=== PATIENT | male | born 1955 | race Caucasian/White ===

== ENCOUNTER 2018-04-14 03:39 | Outpatient (RCR) | payer MEDICARE, SELFPAY ==
[2018-04-14] MEDS: Normal Saline Flush 10 ML SYR IVP (10:25)
[2018-04-14 10:36] LABS: Abs Immature Grans 0.86 k/cumm (0.0-0.09); HCT 25.8 % (40.0-50.0); HGB 8.1 g/dL (13.5-17.5); Mean Corp. HGB Concentration 31.4 g/dL (32.0-36.0); Mean Corpuscular Hemoglobin 28.6 pg (27.0-33.0); Mean Corpuscular Volume 91.2 fL (80-95); Mean Platelet Volume 10.8 fL (8.0-11.0); Platelet Count 100 x1000/uL (130-400); RBC 2.83 m/cumm (4.50-6.00); RBC Distribution Width 17.8 % (11.8-14.1); White Blood Cell Count 9.85 k/cumm (4.4-10.8)
[2018-04-14 10:53] LABS: ALT 13 U/L (12-78); AST 16 U/L (15-37); Albumin 2.7 g/dL (3.4-5.0); Alkaline Phosphatase 143 U/L (46-116); Anion Gap 4.8 mmol/L (3-11); BUN 8 mg/dL (7-18); Bilirubin, Total 0.3 mg/dL (0.2-1.0); CO2 27.2 mmol/L (21.0-32.0); CREATININE 0.94 mg/dL (0.70-1.30); Calcium 8.4 mg/dL (8.5-10.1); Chloride 103 mmol/L (98-107); Glucose 104 mg/dL (70-100); Potassium 4.1 mmol/L (3.5-5.1); Sodium 135 mmol/L (136-145); Total Protein 5.8 g/dL (6.4-8.2)
[2018-04-14 11:06] LABS: Absolute Lymphocyte Count 1.18 k/cumm (1.2-3.4); Absolute Monocyte Count 0.99 k/cumm (0.11-0.7); Absolute Neutrophil Count 6.99 k/cumm (1.2-6.7); Atypical Lymphocytes % 0; Nucleated RBC 1 /100WBC
[2018-04-14 11:07] LABS: Diff Comment Manual Differential; Microcytosis 1+; Polychromasia Present
[2018-04-17] MEDS: Heparin 500 UNITS/5 ML SYRINGE IV (10:30)
[2018-04-17] MEDS: Normal Saline Flush 10 ML SYR IVP (10:30)
[2018-04-17 10:36] VITALS: BP 97/53; PULSE 46; RESP 18; TEMP 36.5
[2018-04-17 10:55] VITALS: BP 92/51; PULSE 48; RESP 17; TEMP 36
[2018-04-17 11:10] VITALS: BP 90/50; PULSE 43; RESP 18; TEMP 36
[2018-04-17 11:40] VITALS: BP 94/55; PULSE 43; RESP 18; TEMP 36.1
[2018-04-17 12:40] VITALS: BP 103/64; PULSE 41; RESP 18; TEMP 36.5
[2018-04-17 13:30] VITALS: BP 109/66; PULSE 38; RESP 18; TEMP 36.5
[2018-04-28 12:54] LABS: Abs Immature Grans 1.26 k/cumm (0.0-0.09); Absolute Basophil Count 0.12 k/cumm (0.0-0.2); Absolute Eosinophil Count 0.12 k/cumm (0.0-0.7); HCT 31.1 % (40.0-50.0); HGB 10.1 g/dL (13.5-17.5); Mean Corp. HGB Concentration 32.5 g/dL (32.0-36.0); Mean Corpuscular Hemoglobin 29.4 pg (27.0-33.0); Mean Corpuscular Volume 90.4 fL (80-95); Mean Platelet Volume 10.7 fL (8.0-11.0); RBC 3.44 m/cumm (4.50-6.00); RBC Distribution Width 17.6 % (11.8-14.1); White Blood Cell Count 11.57 k/cumm (4.4-10.8)
[2018-04-28 13:14] LABS: ALT 14 U/L (12-78); AST 21 U/L (15-37); Albumin 2.9 g/dL (3.4-5.0); Alkaline Phosphatase 171 U/L (46-116); Anion Gap 6.9 mmol/L (3-11); BUN 9 mg/dL (7-18); Bilirubin, Total 0.3 mg/dL (0.2-1.0); CO2 27.1 mmol/L (21.0-32.0); CREATININE 0.94 mg/dL (0.70-1.30); Calcium 8.7 mg/dL (8.5-10.1); Chloride 104 mmol/L (98-107); Glucose 90 mg/dL (70-100); Potassium 4.3 mmol/L (3.5-5.1); Sodium 138 mmol/L (136-145); Total Protein 6.4 g/dL (6.4-8.2)
[2018-04-28 13:50] LABS: Absolute Lymphocyte Count 0.58 k/cumm (1.2-3.4); Absolute Monocyte Count 0.93 k/cumm (0.11-0.7); Absolute Neutrophil Count 9.02 k/cumm (1.2-6.7); Platelet Count 112 x1000/uL (130-400)
[2018-04-28 13:52] LABS: Microcytosis 1+; Polychromasia Present
== END 2018-05-12 ==
LOC: INF 04-17 01:33
PROVIDERS: PCP Internal Medicine; Visit Provider Nurse Practitioner Adult Health
DX: D64.9 Anemia, unspecified (principal); C20 Malignant neoplasm of rectum
CPT/HCPCS: 36430; 36591; P9016; 36415; 80053; 86850; 86900; 86901; 86920; 85025

== ENCOUNTER 2018-05-26 00:12 | Outpatient (CLI) | payer MEDICARE, SELFPAY ==
--- NOTE | 2018-05-26 09:09 | DI.CT_ITS ---
SYMPTOM/DIAGNOSIS: SIGMOID RECTAL CA, C20, NOW COMPLETED TREATMENT, RESTAGING EXAM CHEST, ABDOMEN AND PELVIC CT: Comparison is made with 10/11/17. Images were performed from the clavicles through the ischial tuberosities after IV and without oral contrast. The patient refused oral contrast. CHEST: A port is seen over the right pectoral muscle with the tip in the lower SVC. The heart size is normal. There is no adenopathy, pleural or pericardial effusions seen. No pulmonary nodules or infiltrates are seen. The tracheobronchial tree is unremarkable. The pulmonary arteries are well opacified with IV contrast and no pulmonary emboli are seen. Degenerative changes are seen in the spine. No lytic or blastic bony lesions are identified. ABDOMEN AND PELVIS: The liver, spleen, adrenals and pancreas are unremarkable. The gallbladder is contracted. There is a right lower quadrant urostomy. There is no hydronephrosis. The previously noted ureteral stents have been removed. There is a left lower quadrant colostomy. There is a large quantity of stool. There is no bowel dilatation or wall thickening. The appendix appears normal. The patient is status post resection of the rectosigmoid and bladder. No pelvic mass or adenopathy is seen. There are degenerative and post surgical changes in the spine. The aorta and iliac arteries show atherosclerotic changes. IMPRESSION: No evidence of recurrent disease or metastatic disease.
[2018-05-26] MEDS: Omnipaque 350 MG/ML 100 ML BTL IJ (10:54)
== END 2018-05-26 00:32 ==
PROVIDERS: PCP Internal Medicine; Visit Provider Nurse Practitioner Adult Health
DX: Z48.3 Aftercare following surgery for neoplasm (principal); C20 Malignant neoplasm of rectum; Z12.89 Encounter for screening for malignant neoplasm of other sites; Z93.3 Colostomy status; Z93.6 Other artificial openings of urinary tract status
CPT/HCPCS: 74177; 71260; J3490

== ENCOUNTER 2018-05-26 07:57 | Outpatient (RCR) | payer MEDICARE, SELFPAY ==
[2018-05-26] MEDS: Normal Saline Flush 10 ML SYR IVP (08:15)
[2018-05-26 08:30] LABS: Abs Immature Grans 0.01 k/cumm (0.0-0.09); Absolute Basophil Count 0.04 k/cumm (0.0-0.2); Absolute Eosinophil Count 0.66 k/cumm (0.0-0.7); Absolute Lymphocyte Count 0.45 k/cumm (1.2-3.4); Absolute Neutrophil Count 3.47 k/cumm (1.2-6.7); Basophils % 0.8; Eosinophils % 12.6; HCT 32.5 % (40.0-50.0); HGB 10.3 g/dL (13.5-17.5); Immature Grans % 0.2; Lymphocytes % 8.6; Mean Corp. HGB Concentration 31.7 g/dL (32.0-36.0); Mean Corpuscular Hemoglobin 29.5 pg (27.0-33.0); Mean Corpuscular Volume 93.1 fL (80-95); Mean Platelet Volume 9.5 fL (8.0-11.0); Monocytes % 11.5; Neutrophils % 66.3; Platelet Count 202 x1000/uL (130-400); RBC 3.49 m/cumm (4.50-6.00); RBC Distribution Width 16.9 % (11.8-14.1); White Blood Cell Count 5.23 k/cumm (4.4-10.8)
[2018-05-26 08:42] LABS: ALT 15 U/L (12-78); AST 17 U/L (15-37); Albumin 2.9 g/dL (3.4-5.0); Alkaline Phosphatase 132 U/L (46-116); Anion Gap 8.7 mmol/L (3-11); BUN 12 mg/dL (7-18); Bilirubin, Total 0.2 mg/dL (0.2-1.0); CO2 27.3 mmol/L (21.0-32.0); CREATININE 0.81 mg/dL (0.70-1.30); Calcium 8.3 mg/dL (8.5-10.1); Chloride 105 mmol/L (98-107); Glucose 115 mg/dL (70-100); Potassium 3.8 mmol/L (3.5-5.1); Sodium 141 mmol/L (136-145)
== END 2018-06-11 23:59 | disposition home or self-care (01) ==
LOC: INF 07:57
PROVIDERS: PCP Internal Medicine; Visit Provider Nurse Practitioner Adult Health
DX: C20 Malignant neoplasm of rectum (principal)
CPT/HCPCS: 36591; 74177; 80053; 71260; 85025; J3490

== ENCOUNTER 2018-09-07 02:07 | Outpatient (RCR) | payer MEDICARE, SELFPAY ==
[2018-09-07] MEDS: Normal Saline Flush 10 ML SYR IVP (14:16)
[2018-09-07] MEDS: Heparin 500 UNITS/5 ML SYRINGE IV (14:17)
[2018-09-07 14:26] LABS: Abs Immature Grans 0.01 k/cumm (0.0-0.09); Absolute Basophil Count 0.03 k/cumm (0.0-0.2); Absolute Eosinophil Count 0.54 k/cumm (0.0-0.7); Absolute Lymphocyte Count 1.23 k/cumm (1.2-3.4); Absolute Monocyte Count 0.43 k/cumm (0.11-0.7); Absolute Neutrophil Count 3.68 k/cumm (1.2-6.7); Basophils % 0.5; Eosinophils % 9.1; HCT 36.1 % (40.0-50.0); HGB 12.2 g/dL (13.5-17.5); Immature Grans % 0.2; Lymphocytes % 20.8; Mean Corp. HGB Concentration 33.8 g/dL (32.0-36.0); Mean Corpuscular Hemoglobin 29.6 pg (27.0-33.0); Mean Corpuscular Volume 87.6 fL (80-95); Monocytes % 7.3; Neutrophils % 62.1; Platelet Count 208 x1000/uL (130-400); RBC 4.12 m/cumm (4.50-6.00); RBC Distribution Width 13.8 % (11.8-14.1); White Blood Cell Count 5.92 k/cumm (4.4-10.8)
[2018-09-07 14:34] LABS: ALT 16 U/L (12-78); AST 17 U/L (15-37); Albumin 3.4 g/dL (3.4-5.0); Alkaline Phosphatase 114 U/L (46-116); Anion Gap 7.9 mmol/L (3-11); BUN 13 mg/dL (7-18); Bilirubin, Total 0.3 mg/dL (0.2-1.0); CO2 26.1 mmol/L (21.0-32.0); Calcium 8.7 mg/dL (8.5-10.1); Chloride 103 mmol/L (98-107); Glucose 105 mg/dL (70-100); Sodium 137 mmol/L (136-145); Total Protein 6.6 g/dL (6.4-8.2)
[2018-09-11 09:09] LABS: CEA 1.1 ng/ml
== END 2018-09-11 23:59 | disposition home or self-care (01) ==
LOC: INF 02:07
PROVIDERS: PCP Internal Medicine; Visit Provider Nurse Practitioner Adult Health
DX: C20 Malignant neoplasm of rectum (principal); Z45.2 Encounter for adjustment and management of vascular access device
CPT/HCPCS: 36591; 80053; 82378; 85025

== ENCOUNTER 2018-12-04 00:42 | Outpatient (CLI) | payer MEDICARE, SELFPAY ==
[2018-12-04] MEDS: Omnipaque 350 MG/ML 100 ML BTL IJ (10:43)
--- NOTE | 2018-12-04 10:47 | DI.CT_ITS ---
SYMPTOM/DIAGNOSIS: RECTAL CA, C20, S/P TREATMENT, RESTAGING EXAM CHEST/ABDOMEN/PELVIC CT: Comparison is made with 05/26/18. CHEST: No pulmonary nodules, adenopathy, pleural or pericardial effusions are seen. There are no infiltrates. The heart size is normal. No pulmonary emboli or aortic dissection is seen. No lytic or blastic bony lesions are identified. IMPRESSION: No evidence of metastatic disease in the chest. ABDOMEN AND PELVIS: A left sided colostomy is again noted. The rectosigmoid has been resected. Suture material is seen at the transverse colon. A right sided urostomy is again noted. There is no evidence of hydronephrosis. No recurrent mass, adenopathy or free fluid is seen. There is a moderate quantity of stool. The liver, gallbladder, spleen and adrenals are unremarkable. The pancreas is again noted to be somewhat atrophic. No suspicious bony lesions are identified. IMPRESSION: No evidence of recurrent or metastatic disease.
== END 2018-12-04 01:02 ==
PROVIDERS: PCP Internal Medicine; Visit Provider Internal Medicine Hematology & Oncology
DX: C20 Malignant neoplasm of rectum (principal); Z92.21 Personal history of antineoplastic chemotherapy; Z93.3 Colostomy status; Z12.89 Encounter for screening for malignant neoplasm of other sites; Z93.6 Other artificial openings of urinary tract status
CPT/HCPCS: 74177; 71260; J3490

== ENCOUNTER 2018-12-04 01:31 | Outpatient (RCR) | payer MEDICARE, SELFPAY ==
[2018-12-04] MEDS: Normal Saline Flush 10 ML SYR IVP (08:55)
[2018-12-04] MEDS: Heparin 500 UNITS/5 ML SYRINGE IV (09:20)
[2018-12-04 09:22] LABS: Abs Immature Grans 0.02 k/cumm (0.0-0.09); Absolute Basophil Count 0.03 k/cumm (0.0-0.2); Absolute Eosinophil Count 0.66 k/cumm (0.0-0.7); Absolute Neutrophil Count 3.25 k/cumm (1.2-6.7); Basophils % 0.5; Eosinophils % 11.7; HCT 35.5 % (40.0-50.0); HGB 12.1 g/dL (13.5-17.5); Immature Grans % 0.4; Lymphocytes % 19.4; Mean Corp. HGB Concentration 34.1 g/dL (32.0-36.0); Mean Corpuscular Hemoglobin 29.7 pg (27.0-33.0); Mean Corpuscular Volume 87.2 fL (80-95); Mean Platelet Volume 10.3 fL (8.0-11.0); Monocytes % 10.6; Neutrophils % 57.4; Platelet Count 215 x1000/uL (130-400); RBC 4.07 m/cumm (4.50-6.00); RBC Distribution Width 13.7 % (11.8-14.1); White Blood Cell Count 5.66 k/cumm (4.4-10.8)
[2018-12-04 09:39] LABS: ALT 5 U/L (12-78); AST 9 U/L (15-37); Albumin 3.4 g/dL (3.4-5.0); Alkaline Phosphatase 154 U/L (46-116); Anion Gap 10.9 mmol/L (3-11); BUN 11 mg/dL (7-18); Bilirubin, Total 0.2 mg/dL (0.2-1.0); CO2 24.1 mmol/L (21.0-32.0); CREATININE 0.96 mg/dL (0.70-1.30); Calcium 8.7 mg/dL (8.5-10.1); Chloride 104 mmol/L (98-107); Glucose 118 mg/dL (70-100); Potassium 4.3 mmol/L (3.5-5.1); Sodium 139 mmol/L (136-145); Total Protein 6.7 g/dL (6.4-8.2)
[2018-12-05 08:44] LABS: CEA 1.6 ng/ml
== END 2018-12-10 23:59 | disposition home or self-care (01) ==
LOC: INF 01:31
PROVIDERS: PCP Internal Medicine; Visit Provider Nurse Practitioner Adult Health
DX: C20 Malignant neoplasm of rectum (principal); Z45.2 Encounter for adjustment and management of vascular access device
CPT/HCPCS: 36591; 74177; 80053; 71260; 82378; 85025; J3490

== ENCOUNTER 2019-02-09 15:53 | Outpatient (REF) | payer MEDICARE, SELFPAY ==
[2019-02-09 21:01] LABS: Abs Immature Grans 0.01 k/cumm (0.0-0.09); Absolute Basophil Count 0.05 k/cumm (0.0-0.2); Absolute Eosinophil Count 0.58 k/cumm (0.0-0.7); Absolute Lymphocyte Count 1.56 k/cumm (1.2-3.4); Absolute Monocyte Count 0.68 k/cumm (0.11-0.7); Absolute Neutrophil Count 4.52 k/cumm (1.2-6.7); Basophils % 0.7; Eosinophils % 7.8; HCT 40.4 % (40.0-50.0); HGB 13.7 g/dL (13.5-17.5); Immature Grans % 0.1; Lymphocytes % 21.1; Mean Corp. HGB Concentration 33.9 g/dL (32.0-36.0); Mean Corpuscular Hemoglobin 29.7 pg (27.0-33.0); Mean Corpuscular Volume 87.6 fL (80-95); Mean Platelet Volume 11.4 fL (8.0-11.0); Monocytes % 9.2; Neutrophils % 61.1; Platelet Count 221 x1000/uL (130-400); RBC 4.61 m/cumm (4.50-6.00); RBC Distribution Width 13.6 % (11.8-14.1)
== END 2019-02-09 16:13 ==
LOC: NCHCN 15:53
PROVIDERS: PCP Internal Medicine; Visit Provider Internal Medicine
DX: R06.00 Dyspnea, unspecified (principal)
CPT/HCPCS: 85025

== ENCOUNTER 2019-04-02 01:11 | Outpatient (CLI) | payer MEDICARE, SELFPAY ==
--- NOTE | 2019-04-02 15:00 | DI.CT_ITS ---
SYMPTOM/DIAGNOSIS: TREATED RECTAL CA, UROSTOMY/COLOSTOMY CT CHEST, ABDOMEN AND PELVIS: CT scan of the chest, abdomen and pelvis was performed following the uneventful administration of intravenous and oral contrast material. Comparison examination is 12/04/18 and 10/11/17. CT ABDOMEN AND PELVIS: The liver is normal in size. No evidence of an hepatic mass is seen. The portal, superior mesenteric and splenic veins are patent. The gallbladder is negative. There is no biliary ductal dilatation. The pancreas, spleen, adrenal glands are all unremarkable. The kidneys show no evidence of obstruction or inflammation. There are bilateral renal cysts. The patient has a right lower quadrant urostomy which is unremarkable. The patient is status post resection of the rectosigmoid colon. There is a left lower quadrant colostomy in place. There is a large amount of stool in the colon suggesting constipation. No evidence of bowel obstruction, inflammation or infection is identified. There is a normal appendix present in the right lower quadrant. No significant abdominal or pelvic adenopathy, ascites or pneumoperitoneum is seen. There is atherosclerosis of the abdominal aorta. No aneurysmal dilatation is present. There are fat containing bilateral inguinal hernias. No aggressive osseous lesions are seen in the bones. Moderately severe degenerative changes are seen in the spine. IMPRESSION: 1. Status post cystectomy and rectosigmoid resection with right lower quadrant urostomy and left lower quadrant colostomy. 2. No evidence of abdominal or pelvic metastatic disease. 3. Large amount of stool throughout the colon suggestive of constipation CT CHEST: The visualized thyroid gland is unremarkable. The thoracic aorta is intact and normal in caliber. Heart size is within normal limits. No significant pericardial effusion is seen. Coronary aratery calcifications are present. There is an in-dwelling central venous catheter. The tip of the catheter is seen at the junction of the superior vena cava and right atrium. There is a filling defect seen in a branch of the pulmonary artery in the right lower lobe. (Series 5, Image 386) The findings are consistent with pulmonary embolus. No evidence of right ventricular dysfunction seen. No significant thoracic adenopathy, pleural effusion or pneumothorax is present. There are dependent atelectatic changes in the lung bases. No focal consolidating infiltrates are seen. No suspicious noncalcified pulmonary nodules are seen. The tracheobronchial tree is unremarkable. Degenerative changes are present in the spine. No aggressive osseous lesions are seen in the bones. Lucency seen in the T3 vertebral bodies are unchanged. IMPRESSION: 1. Pulmonary embolus in a branch of the pulmonary artery in the right lower lobe. 2. No evidence of thoracic metastatic disease The findings were discussed with the patient's primary care team on 04/03/19.
[2019-04-02] MEDS: Omnipaque 350 MG/ML 100 ML BTL IJ (15:01)
== END 2019-04-02 01:31 ==
PROVIDERS: PCP Internal Medicine; Visit Provider Nurse Practitioner Adult Health
DX: C20 Malignant neoplasm of rectum (principal); Z93.3 Colostomy status; Z93.6 Other artificial openings of urinary tract status; K59.00 Constipation, unspecified; K40.20 Bilateral inguinal hernia, without obstruction or gangrene, not specified as recurrent; I26.99 Other pulmonary embolism without acute cor pulmonale
CPT/HCPCS: 36415; 74177; 80053; 71260; 82378; 85025; J3490

== ENCOUNTER 2019-04-02 01:22 | Outpatient (RCR) | payer MEDICARE, SELFPAY ==
[2019-03-29] MEDS: Heparin 500 UNITS/5 ML SYRINGE IV (14:49)
[2019-03-29] MEDS: Normal Saline Flush 10 ML SYR IVP (14:49)
[2019-03-29 15:04] LABS: Abs Immature Grans 0.01 k/cumm (0.0-0.09); Absolute Basophil Count 0.04 k/cumm (0.0-0.2); Absolute Eosinophil Count 0.56 k/cumm (0.0-0.7); Absolute Lymphocyte Count 1.72 k/cumm (1.2-3.4); Absolute Monocyte Count 0.55 k/cumm (0.11-0.7); Absolute Neutrophil Count 3.09 k/cumm (1.2-6.7); Basophils % 0.7; Eosinophils % 9.4; HCT 34.5 % (40.0-50.0); Immature Grans % 0.2; Lymphocytes % 28.8; Mean Corp. HGB Concentration 34.8 g/dL (32.0-36.0); Mean Corpuscular Hemoglobin 30.5 pg (27.0-33.0); Mean Corpuscular Volume 87.6 fL (80-95); Mean Platelet Volume 10.4 fL (8.0-11.0); Monocytes % 9.2; Neutrophils % 51.7; Platelet Count 198 x1000/uL (130-400); RBC 3.94 m/cumm (4.50-6.00); RBC Distribution Width 13.1 % (11.8-14.1); White Blood Cell Count 5.97 k/cumm (4.4-10.8)
[2019-03-29 15:23] LABS: ALT 17 U/L (12-78); AST 11 U/L (15-37); Albumin 3.4 g/dL (3.4-5.0); Alkaline Phosphatase 89 U/L (46-116); Anion Gap 7.5 mmol/L (3-11); BUN 10 mg/dL (7-18); Bilirubin, Total 0.4 mg/dL (0.2-1.0); CO2 26.5 mmol/L (21.0-32.0); CREATININE 0.92 mg/dL (0.70-1.30); Calcium 8.5 mg/dL (8.5-10.1); Chloride 103 mmol/L (98-107); Glucose 93 mg/dL (70-100); Potassium 3.6 mmol/L (3.5-5.1); Sodium 137 mmol/L (136-145); Total Protein 6.4 g/dL (6.4-8.2)
[2019-03-30 09:30] LABS: CEA 1.6 ng/ml
[2019-04-02] MEDS: Normal Saline Flush 10 ML SYR IVP (12:55)
[2019-04-02] MEDS: Heparin 500 UNITS/5 ML SYRINGE IV (15:10)
== END 2019-04-11 23:59 | disposition home or self-care (01) ==
LOC: INF 01:22
PROVIDERS: PCP Internal Medicine; Visit Provider Nurse Practitioner Adult Health
DX: C20 Malignant neoplasm of rectum (principal); Z45.2 Encounter for adjustment and management of vascular access device; Z85.038 Personal history of other malignant neoplasm of large intestine; Z93.3 Colostomy status; Z93.6 Other artificial openings of urinary tract status; K59.00 Constipation, unspecified; K40.20 Bilateral inguinal hernia, without obstruction or gangrene, not specified as recurrent; I26.99 Other pulmonary embolism without acute cor pulmonale
CPT/HCPCS: 36591; 74177; 80053; 96523; 71260; 74019; 82378; 85025; J3490

== ENCOUNTER 2019-04-02 10:29 | Outpatient (CLI) | payer MEDICARE, SELFPAY ==
--- NOTE | 2019-03-29 06:49 | DI.RAD_ITS ---
SYMPTOM/DIAGNOSIS: H/O STAGE 4 COLON CA, S/P LAP WITH COLOSTOMY AND UROSTOMY, RECTAL CA C20 FLAT AND UPRIGHT ABDOMEN: Routine examination was performed. The visualized lung bases are clear. The bowel shows no evidence of obstruction. There is a moderate amount of stool in the colon. No evidence of significant constipation. No organomegaly or pneumoperitoneum is seen. There is an ovoid density in the left lower quadrant likely reflecting the patient's ostomy. Please correlate with physical exam. CT scan may be considered for further evaluation. Degenerative changes are seen in the spine.
--- NOTE | 2019-03-29 17:07 | DI.VRAD_ITS ---
EXAM: XR Abdomen, 2 Views EXAM DATE/TIME: 03/29/2019 4:30 PM CLINICAL HISTORY: 64 years old, male; Patient HX: HX of stage 4 colon cancer. PT S/P lar with colostomy and urostomy. No bowel movement in 6 days; Evaluate for constipation versus acute obstruction. TECHNIQUE: Imaging protocol: Frontal view of the abdomen/pelvis with upright view of the abdomen. COMPARISON: CR ABDOMEN 2 VIEW FLAT, UPRIGHT 03/12/2017 6:38 AM FINDINGS: Gastrointestinal tract: No significant constipation. Intraperitoneal space: Hyperdense oval shaped structure measuring 11 x 7 cm and the left pelvis of unclear etiology. This may represent a colostomy. Consider CT if clinically relevant. Bones/joints: Degenerative changes in the spine. IMPRESSION: Hyperdense oval shaped structure measuring 11 x 7 cm and the left pelvis of unclear etiology. This may represent a colostomy. Consider CT if clinically relevant. No significant constipation. Dictated and Authenticated by: Arie Dia MD. Ordering:CLAUDINE STARKS MD
== END 2019-04-02 10:49 ==
PROVIDERS: PCP Internal Medicine; Visit Provider Nurse Practitioner Adult Health
DX: C20 Malignant neoplasm of rectum (principal); Z85.038 Personal history of other malignant neoplasm of large intestine; Z93.3 Colostomy status; Z93.6 Other artificial openings of urinary tract status
CPT/HCPCS: 74019

== ENCOUNTER → 2019-04-26 09:17 | Outpatient (BNVA) | payer MEDICARE, SELFPAY | PROVIDERS: PCP Internal Medicine; Referring Provider Internal Medicine; Visit Provider Surgery | DX: Z85.038 Personal history of other malignant neoplasm of large intestine; K59.00 Constipation, unspecified; Z93.3 Colostomy status; J44.9 Chronic obstructive pulmonary disease, unspecified; F17.210 Nicotine dependence, cigarettes, uncomplicated | CPT/HCPCS: 99202; 99214 ==

== ENCOUNTER 2019-04-27 02:31 | Outpatient (CLI) | payer MEDICARE, SELFPAY | END 2019-04-27 02:51 | PROVIDERS: PCP Internal Medicine; Visit Provider Surgery | DX: I25.10 Atherosclerotic heart disease of native coronary artery without angina pectoris (principal); I25.2 Old myocardial infarction; Z01.810 Encounter for preprocedural cardiovascular examination | CPT/HCPCS: 93005; 93010 ==

== ENCOUNTER 2019-05-02 10:00 | Outpatient (REF) | payer MEDICARE, SELFPAY | END 2019-05-02 10:20 | LOC: NCHCN 10:00 | PROVIDERS: PCP Internal Medicine; Visit Provider Internal Medicine | DX: R31.9 Hematuria, unspecified (principal) | CPT/HCPCS: 87086 ==

== ENCOUNTER 2019-05-03 11:38 | Outpatient (RCR) | payer MEDICARE, SELFPAY ==
[2019-05-03] MEDS: Normal Saline Flush 10 ML SYR IVP (12:10)
[2019-05-03] MEDS: Heparin 500 UNITS/5 ML SYRINGE IVP (12:11)
[2019-05-03 12:22] LABS: Abs Immature Grans 0.01 k/cumm (0.0-0.09); Absolute Basophil Count 0.02 k/cumm (0.0-0.2); Absolute Eosinophil Count 0.48 k/cumm (0.0-0.7); Absolute Lymphocyte Count 1.28 k/cumm (1.2-3.4); Absolute Monocyte Count 0.45 k/cumm (0.11-0.7); Absolute Neutrophil Count 2.93 k/cumm (1.2-6.7); Basophils % 0.4; Eosinophils % 9.3; HCT 36.1 % (40.0-50.0); HGB 12.3 g/dL (13.5-17.5); Immature Grans % 0.2; Lymphocytes % 24.8; Mean Corp. HGB Concentration 34.1 g/dL (32.0-36.0); Mean Corpuscular Hemoglobin 30.1 pg (27.0-33.0); Mean Corpuscular Volume 88.3 fL (80-95); Mean Platelet Volume 10.1 fL (8.0-11.0); Monocytes % 8.7; Neutrophils % 56.6; Platelet Count 255 x1000/uL (130-400); RBC 4.09 m/cumm (4.50-6.00); White Blood Cell Count 5.17 k/cumm (4.4-10.8)
[2019-05-03 12:40] LABS: ALT 16 U/L (12-78); AST 10 U/L (15-37); Albumin 3.4 g/dL (3.4-5.0); Alkaline Phosphatase 89 U/L (46-116); Anion Gap 9.5 mmol/L (3-11); BUN 13 mg/dL (7-18); Bilirubin, Total 0.3 mg/dL (0.2-1.0); CO2 25.5 mmol/L (21.0-32.0); Calcium 8.6 mg/dL (8.5-10.1); Chloride 106 mmol/L (98-107); Glucose 103 mg/dL (70-100); Potassium 4.2 mmol/L (3.5-5.1); Sodium 141 mmol/L (136-145); Total Protein 6.6 g/dL (6.4-8.2)
[2019-05-04 10:13] LABS: CEA 1.6 ng/ml
== END 2019-05-12 23:59 | disposition home or self-care (01) ==
LOC: INF 11:38
PROVIDERS: PCP Internal Medicine; Visit Provider Nurse Practitioner Adult Health
DX: C20 Malignant neoplasm of rectum (principal); Z45.2 Encounter for adjustment and management of vascular access device
CPT/HCPCS: 36591; 80053; 82378; 85025

== ENCOUNTER 2019-05-03 14:50 | Outpatient (CLI) | payer MEDICARE, SELFPAY ==
[2019-05-03] MEDS: Omnipaque 350 MG/ML 100 ML BTL IJ (13:29)
--- NOTE | 2019-05-03 13:33 | DI.CT_ITS ---
SYMPTOM/DIAGNOSIS: HEMATURIA, R31.9, H/O TOTAL CYSTECTOMY, Z90.6,HEMATURIA FROM UROSTOMY SITE CT UROGRAM: Comparison is made with 04/02/19. The noncontrast examination shows no evidence of obstructive uropathy. Note is again made of calcification within the dependent portion of the urostomy in the right lower quadrant which may represent stones. No ureterolithiasis or hydronephrosis is present. The patient is status post cystectomy with a right lower quadrant urostomy. The patient is status post partial colectomy with an colostomy in the left lower quadrant. Venous imaging was performed. Dependent atelectatic changes are seen in the lung bases. The liver is normal in size. No suspicious hepatic mass is seen. The gallbladder is negative. The portal, superior mesenteric and splenic veins are patent. The pancreas, spleen and adrenal glands are unremarkable. The kidneys show normal and symmetric enhancement. No suspicious solid renal mass is present. The abdominal aorta is of normal caliber. No significant abdominal or pelvic adenopathy, ascites or pneumoperitoneum is present. The bowel is unremarkable. There is a normal appendix present. There is a moderate amount of stool throughout the colon. Incidental note is made of a fat containing left inguinal hernia. Degenerative changes are seen in the spine. 7 minute delayed images were then obtained. The ureters show no evidence of obstruction. There is contrast seen within the urostomy. No evidence of extravasation of contrast is seen. No focal fluid collections are seen around the urostomy. No findings to suggest an abscess are seen. IMPRESSION: No evidence of an acute abdominal or pelvic process. Status post cystectomy with right lower quadrant urostomy. No evidence of leakage of contrast from the urostomy. Status post partial colectomy with a left lower quadrant colostomy. No evidence of a bowel inflammatory or infectious process. No evidence of bowel obstruction.
== END 2019-05-03 15:10 ==
PROVIDERS: PCP Internal Medicine; Visit Provider Internal Medicine
DX: R31.9 Hematuria, unspecified (principal); Z90.6 Acquired absence of other parts of urinary tract; Z93.6 Other artificial openings of urinary tract status; Z93.3 Colostomy status; Z90.49 Acquired absence of other specified parts of digestive tract
CPT/HCPCS: 74178; J3490

== ENCOUNTER 2019-06-14 03:59 | Outpatient (RCR) | payer MEDICARE, SELFPAY ==
[2019-06-14] MEDS: Normal Saline Flush 10 ML SYR IVP (09:58)
[2019-06-14] MEDS: Heparin 500 UNITS/5 ML SYRINGE IV (09:58)
[2019-06-14 10:21] LABS: Abs Immature Grans 0.01 k/cumm (0.0-0.09); Absolute Basophil Count 0.03 k/cumm (0.0-0.2); Absolute Eosinophil Count 0.58 k/cumm (0.0-0.7); Absolute Lymphocyte Count 1.22 k/cumm (1.2-3.4); Absolute Monocyte Count 0.62 k/cumm (0.11-0.7); Absolute Neutrophil Count 3.87 k/cumm (1.2-6.7); Basophils % 0.5; Eosinophils % 9.2; HCT 35.1 % (40.0-50.0); HGB 11.9 g/dL (13.5-17.5); Immature Grans % 0.2; Lymphocytes % 19.3; Mean Corp. HGB Concentration 33.9 g/dL (32.0-36.0); Mean Corpuscular Hemoglobin 30.1 pg (27.0-33.0); Mean Corpuscular Volume 88.6 fL (80-95); Mean Platelet Volume 10.7 fL (8.0-11.0); Monocytes % 9.8; Platelet Count 190 x1000/uL (130-400); RBC 3.96 m/cumm (4.50-6.00); RBC Distribution Width 13.3 % (11.8-14.1); White Blood Cell Count 6.33 k/cumm (4.4-10.8)
[2019-06-14 10:44] LABS: ALT 11 U/L (16-63); AST 9 U/L (15-37); Albumin 3.5 g/dL (3.4-5.0); Alkaline Phosphatase 110 U/L (46-116); Anion Gap 8.3 mmol/L (3-11); BUN 15 mg/dL (7-18); Bilirubin, Total 0.2 mg/dL (0.2-1.0); CO2 24.7 mmol/L (21.0-32.0); CREATININE 1.02 mg/dL (0.70-1.30); Calcium 8.6 mg/dL (8.5-10.1); Chloride 106 mmol/L (98-107); Glucose 112 mg/dL (70-100); Potassium 4.4 mmol/L (3.5-5.1); Sodium 139 mmol/L (136-145); Total Protein 6.7 g/dL (6.4-8.2)
== END 2019-07-12 23:59 | disposition home or self-care (01) ==
LOC: INF 03:59
PROVIDERS: PCP Internal Medicine; Visit Provider Internal Medicine Hematology & Oncology
DX: C20 Malignant neoplasm of rectum (principal); Z45.2 Encounter for adjustment and management of vascular access device
CPT/HCPCS: 36591; 80053; 82378; 85025

== ENCOUNTER → 2019-07-06 08:57 | Outpatient (BNVA) | payer MEDICARE, SELFPAY | PROVIDERS: PCP Internal Medicine; Referring Provider Internal Medicine; Visit Provider Surgery | DX: Z85.038 Personal history of other malignant neoplasm of large intestine (principal); I26.93 Single subsegmental thrombotic pulmonary embolism without acute cor pulmonale; J44.9 Chronic obstructive pulmonary disease, unspecified; F17.210 Nicotine dependence, cigarettes, uncomplicated; Z90.49 Acquired absence of other specified parts of digestive tract | CPT/HCPCS: 99214 ==

== ENCOUNTER 2019-07-16 09:12 | Day surgery (SDC) | payer MEDICARE, SELFPAY ==
--- NOTE | 2019-07-16 07:00 | W.COLOREPORT ---
Date of service: 07/16/19 Time of Service: 10:02 Colonoscopy Report Date of procedure: 07/16/19 Pre-op diagnosis general: Hx of colon cancer Post-op diagnosis procedure note: same (and polyps) Procedure: Colonoscopy with polypectomy by cold forceps Surgeon: Jimena Ricci Anesthesia proc note operative: other (General/ ASA 2/ Benigno Mtz CRNA) Estimated blood loss (mL): 3 Pathology: other (ascending polyp, descending polyp x2) Complications: None Disposition: no change Indications: Mr. Garcia is a pleasant 64-year-old gentleman with a history of colon cancer who was seen in the office for a surveillance colonoscopy through his permanent colostomy. Risks, benefits and complications have been reviewed. Complications include but are not limited to bleeding, pain, perforation, missed small lesion/polyp, sore throat, aspiration and adverse reaction to the medications. Questions were entertained and answered to their satisfaction and they wished to proceed. No guarantees were given or implied. Prep: Miralax/Dulcolax Procedure Start Time: :02 Procedure End Time: :28 Findings: 3 sessile polyps identified. Colostomy prolapse Procedure Description: After informed consent was obtained the patient was taken to the procedure room and placed in a left decubitous position. Monitors were applied and a time out was done. The patients name, date of , procedure, allergies to medications and metal in their body was reviewed. The patient was then sedated. Once sedated and comfortable digital exam of the ostomy was done. There were no palpable masses. The scope was then introduced and advanced to the cecum without difficulty. The TI and appendiceal orifice were identified. The prep was good. The scope was then slowly retracted over 20 minutes back to the skin level. Polyps were removed with cold forceps in the ascending colon and in the descending colon x2. The scope was removed and the patient was woken up and taken back to Same day surgery in stable condition. The patient tolerated the procedure well and there were no immediate complications. Follow up: The patient should follow up in 1 year unless they develop changes in bowel habits or other new gastrointestinal complaints.
--- NOTE | 2019-07-16 07:02 | W.PM.DSUDISC ---
Discharge Plan Disposition Patient Disposition: HOME Condition: Good Discharge Details Reason For Visit: Colon Cancer Screening Attending Provider: Jimena Ricci Primary Care Provider: Nyla Munoz Home Meds and New Rx's Prescriptions: Continued Xarelto 10 mg tablet 10 mg PO DAILY RF: 0 methadone 10 MG tablet 10 mg PO TID RF: 0 oxycodone 10 mg Tablet 10 mg PO USEASDIRECTD PRNRF: 0 metoprolol tartrate 25 MG tablet 25 mg PO HS RF: 0 oxycodone 15 MG tablet 15 mg PO Q4H PRN PRNRF: 0 nitroglycerin [Nitrostat] 0.4 MG tablet, sublingual 0.4 mg Sublingual DAILY RF: 0 Movantik 12.5 mg tablet 12.5 mg PO HS RF: 0 Discontinued polyethylene glycol 3350 17 gram powder in packet 255 g PO DAILY Qty: 15 RF: 0 bisacodyl [Dulcolax (bisacodyl)] 5 mg tablet,delayed release (DR/EC) 5 mg PO ONCE Qty: 4 RF: 0 Discharge Instructions Instructions: Colonoscopy (DC), Colorectal Polyps (DC) Additional Instructions: Findings: 3 small polyps Follow up: 1 year Please call if you develop: fevers >101.5 Nausea or Vomiting Abdominal pain that is not transient DAY SURGERY UNIT POST ENDOSCOPY INSTRUCTIONS 1. Because there will be medication in your system for the next 24 hours, you may feel a little sleepy. Your coordination will be affected. Therefore: a. Do not drive or operate dangerous equipment for 24 hours. b. Do not drink alcohol beverages for 24 hours (not even beer). c. Plan to go home and rest for the day. 2. Generally there are no restrictions on your activity after a day or so has gone by, but you may feel a bit fatigued for a few days. 3 After you arrive home you may have a light meal and return to a normal diet as you can tolerate it without feeling sick to your stomach. 4. After surgery, you may feel pain or discomfort. This should be only transient, but if it persists please contact your doctor. 5. If there are any questions regarding the findings of your procedure, please feel free to contact your doctor. 6. If you are unable to contact your doctor with a problem, contact the hospital at [phone]. 7. Continue all your regular medications unless directed otherwise. I understand the above instructions and have no questions. Signature of Patient or Responsible Adult Escort Date/Time Name of Responsible Adult Escort Signature of Nurse Date/Time Activity:: Activity as Tolerated Diet:: As Tolerated Discharge Orders Discharge Orders: Discharge Order (Routine); Ordered 07/16/19 Ordered By: Jimena Ricci DS: Diagnosis Discharge Diagnosis (1) S/P colonoscopy: Status: Acute (2) Colorectal polyps: Status: Acute
[2019-07-16 09:15] VITALS: BP 136/73; PULSE 51; RESP 18; TEMP 36.4; O2SAT 99
[2019-07-16] MEDS: Lactated Ringers 1,000 ML 80 ML IV (09:54)
--- NOTE | 2019-07-16 10:11 | BOWEL_PTH ---
PATIENT: Saúl Garcia LOC: [facility] U#:[id number] AGE/SX: 64/M ROOM: RE07/16/[address]: Jimena Ricci MD : [id number] BED: DIS: 07/16/2019 SPEC #: [id number] RECD: 07/16/19 12:00 STATUS: AMALIA VASQUEZ #: [id number] NAEL: 07/16/19 10:[address]: Jimena Ricci DEPT: Surgical Specimen RECD BY: Anali Dwyer ENTERED: 07/16/19 12:01 SP TYPE: Bowel OTHR DR: Nyla Munoz Tissues: 1 - BIOPSY BOWEL 2 - BIOPSY BOWEL Procedures: GROSS AND MICRO LEVEL 4 Comments: [id number]
[2019-07-16 11:17] VITALS: BP 96/63; PULSE 48; RESP 16; TEMP 36.1; O2SAT 99
[2019-07-16] MEDS: Heparin 500 UNITS/5 ML SYRINGE IVP (11:22)
[2019-07-16] MEDS: Normal Saline Flush 10 ML SYR IV (11:22)
== END 2019-07-16 11:35 | disposition home or self-care (01) ==
LOC: SUR 09:13
PROVIDERS: PCP Internal Medicine; Visit Provider Surgery
PROC: 0DJD8ZZ Inspection of Lower Intestinal Tract, Via Natural or Artificial Opening Endoscopic (ICD-10-PCS; CPT 45378; principal; 2019-07-16 11:30)
DX: Z12.11 Encounter for screening for malignant neoplasm of colon (principal); D12.2 Benign neoplasm of ascending colon; Z85.038 Personal history of other malignant neoplasm of large intestine; Z93.3 Colostomy status; I26.99 Other pulmonary embolism without acute cor pulmonale; Z79.01 Long term (current) use of anticoagulants; J44.9 Chronic obstructive pulmonary disease, unspecified; F17.210 Nicotine dependence, cigarettes, uncomplicated
CPT/HCPCS: 44389; 88305

== ENCOUNTER 2019-09-07 04:54 | Outpatient (RCR) | payer MEDICARE, SELFPAY ==
[2019-09-07] MEDS: Normal Saline Flush 10 ML SYR IVP (14:27)
[2019-09-07] MEDS: Heparin 500 UNITS/5 ML SYRINGE IV (14:27)
[2019-09-07 14:34] LABS: Abs Immature Grans 0.01 k/cumm (0.0-0.09); Absolute Basophil Count 0.03 k/cumm (0.0-0.2); Absolute Lymphocyte Count 1.32 k/cumm (1.2-3.4); Absolute Neutrophil Count 4.96 k/cumm (1.2-6.7); Basophils % 0.4; Eosinophils % 4.1; HCT 36.9 % (40.0-50.0); HGB 12.4 g/dL (13.5-17.5); Immature Grans % 0.1; Mean Corp. HGB Concentration 33.6 g/dL (32.0-36.0); Mean Corpuscular Volume 86.4 fL (80-95); Mean Platelet Volume 9.9 fL (8.0-11.0); Monocytes % 9.6; Neutrophils % 67.8; Platelet Count 229 x1000/uL (130-400); RBC 4.27 m/cumm (4.50-6.00); RBC Distribution Width 13.2 % (11.8-14.1); White Blood Cell Count 7.32 k/cumm (4.4-10.8)
[2019-09-07 14:51] LABS: ALT 14 U/L (16-63); AST 16 U/L (15-37); Albumin 3.6 g/dL (3.4-5.0); Alkaline Phosphatase 108 U/L (46-116); BUN 16 mg/dL (7-18); Bilirubin, Total 0.5 mg/dL (0.2-1.0); CREATININE 1.02 mg/dL (0.70-1.30); Calcium 8.9 mg/dL (8.5-10.1); Chloride 104 mmol/L (98-107); Glucose 95 mg/dL (74-106); Potassium 4.4 mmol/L (3.5-5.1); Sodium 139 mmol/L (136-145); Total Protein 7.3 g/dL (6.4-8.2)
[2019-09-10 12:55] LABS: CEA 1.8 ng/mL (See Note)
== END 2019-09-11 23:59 | disposition home or self-care (01) ==
LOC: INF 04:54
PROVIDERS: PCP Internal Medicine; Visit Provider Internal Medicine Hematology & Oncology
DX: C20 Malignant neoplasm of rectum (principal); Z45.2 Encounter for adjustment and management of vascular access device
CPT/HCPCS: 36591; 80053; 82378; 85025

== ENCOUNTER 2019-10-12 00:28 | Outpatient (CLI) | payer MEDICARE, SELFPAY ==
[2019-10-12] MEDS: Omnipaque 350 MG/ML 100 ML BTL IV (10:12)
--- NOTE | 2019-10-12 10:13 | DI.CT_ITS ---
EXAM: CT CHEST/ABD/PEL W CLINICAL HISTORY: RECTAL CA, S/P CHEMO/RT, RESECTION AND FURTHER CHEMO, UNEXPLAINED PE, RESTAGING, C 20 TECHNIQUE: CT of the chest, abdomen, and pelvis was performed with intravenous infusion of 100 cc of Omnipaque 350 and ingestion of dilute barium. COMPARISON: CT ABDOMEN PELVIS WO/W from 05/03/2019 FINDINGS: The patient reportedly has history of rectal carcinoma and is status post radiation therapy and chemo therapy. No bony abnormality seen involving the thorax. The lungs are clear. No pleural effusion or pleural- based mass. No mediastinal or hilar adenopathy. Tracheobronchial tree appears intact. No evidence of pulmonary embolic disease. No thoracic aortic abnormality seen. Presumed post radiation changes noted involving the pelvis and lower lumbar spine. No focal erosive or destructive lesion seen. Prior rectosigmoid resection and bladder resection with urinary ostomy r ight lower quadrant and colostomy left lower quadrant. Liver appears normal. Spleen appears normal. No pancreatic abnormality. No biliary dilatation. There is nonspecific wall thickening of the duodenum and distal gastric antrum, question peptic disea se. Endoscopic correlation may be considered if clinically appropriate. Adrenals are unremarkable in appearance. There is an ileal loop ureterostomy. Slight right hydronep hrosis and hydroureter noted. Possible tiny obstructing stone at the level of the ureteral ileal marybeth stomosis. No left hydronephrosis or hydroureter. No additional urinary tract findings. Abdominal aorta is of normal diameter. Atheromatous changes noted involving the aorta and major bran ch vessels without evidence of occlusion or high-grade stenosis. No focal bowel pathology identified. Probable mild wall thickening portions of jejunum and ileum, no nspecific, possible radiation related changes. Appendix is normal. No significant abdominal wall he rnia seen. No retroperitoneal, mesenteric or pelvic adenopathy. IMPRESSION: 1. No evidence of thoracic metastatic disease. 2. No evidence of intra-abdominal metastatic disease. 3. Interval development of mild right hydronephrosis since prior CT of 05/03/2019, possible obstructi on at level of the ileal loop, there may be a tiny calcification of the right ureter at the ureteral ileal anastomosis.
[2019-10-12] MEDS: Omnipaque 350 MG/ML 50 ML BTL PO (10:39)
== END 2019-10-12 00:48 ==
PROVIDERS: PCP Internal Medicine; Visit Provider Internal Medicine Hematology & Oncology
DX: C20 Malignant neoplasm of rectum (principal); Z92.21 Personal history of antineoplastic chemotherapy; Z92.3 Personal history of irradiation; N13.30 Unspecified hydronephrosis; N20.0 Calculus of kidney; Z93.3 Colostomy status; Z93.6 Other artificial openings of urinary tract status
CPT/HCPCS: 74177; 71260; J3490; Q9967

== ENCOUNTER 2019-10-12 05:10 | Outpatient (RCR) | payer MEDICARE, SELFPAY ==
[2019-10-12] MEDS: Normal Saline Flush 10 ML SYR IVP (07:55)
[2019-10-12 08:31] LABS: ALT 15 U/L (16-63); AST 15 U/L (15-37); Albumin 3.5 g/dL (3.4-5.0); Alkaline Phosphatase 107 U/L (46-116); Anion Gap 9.3 mmol/L (3-11); BUN 12 mg/dL (7-18); Bilirubin, Total 0.2 mg/dL (0.2-1.0); CO2 26.7 mmol/L (21.0-32.0); CREATININE 1.09 mg/dL (0.70-1.30); Calcium 8.3 mg/dL (8.5-10.1); Chloride 106 mmol/L (98-107); Glucose 103 mg/dL (74-106); Potassium 4.2 mmol/L (3.5-5.1); Sodium 142 mmol/L (136-145); Total Protein 6.8 g/dL (6.4-8.2)
[2019-10-12] MEDS: Heparin 500 UNITS/5 ML SYRINGE IV (10:20)
== END 2019-10-12 23:59 | disposition home or self-care (01) ==
LOC: INF 05:10
PROVIDERS: PCP Internal Medicine; Visit Provider Nurse Practitioner Adult Health
DX: C20 Malignant neoplasm of rectum (principal); Z45.2 Encounter for adjustment and management of vascular access device; Z92.21 Personal history of antineoplastic chemotherapy; Z92.3 Personal history of irradiation; N13.30 Unspecified hydronephrosis; N20.0 Calculus of kidney; Z93.3 Colostomy status; Z93.6 Other artificial openings of urinary tract status
CPT/HCPCS: 36591; 74177; 80053; 71260; 82378; J3490; Q9967

== ENCOUNTER 2019-11-02 02:56 | Outpatient (RCR) | payer MEDICARE, SELFPAY ==
[2019-11-02] MEDS: Normal Saline Flush 10 ML SYR IVP (13:55)
[2019-11-02] MEDS: Heparin 500 UNITS/5 ML SYRINGE IV (13:55)
[2019-11-02 14:26] LABS: Absolute Basophil Count 0.04 k/cumm (0.0-0.2); Absolute Eosinophil Count 0.44 k/cumm (0.0-0.7); Absolute Lymphocyte Count 1.43 k/cumm (1.2-3.4); Absolute Monocyte Count 0.61 k/cumm (0.11-0.7); Absolute Neutrophil Count 3.28 k/cumm (1.2-6.7); Basophils % 0.7; Eosinophils % 7.6; HCT 37.5 % (40.0-50.0); HGB 12.5 g/dL (13.5-17.5); Lymphocytes % 24.7; Mean Corp. HGB Concentration 33.3 g/dL (32.0-36.0); Mean Corpuscular Hemoglobin 28.8 pg (27.0-33.0); Mean Corpuscular Volume 86.4 fL (80-95); Mean Platelet Volume 10.8 fL (8.0-11.0); Monocytes % 10.5; Neutrophils % 56.5; Platelet Count 214 x1000/uL (130-400); RBC 4.34 m/cumm (4.50-6.00); RBC Distribution Width 14.3 % (11.8-14.1)
[2019-11-02 14:40] LABS: ALT 13 U/L (16-63); AST 16 U/L (15-37); Albumin 3.7 g/dL (3.4-5.0); Alkaline Phosphatase 103 U/L (46-116); Anion Gap 7.9 mmol/L (3-11); BUN 14 mg/dL (7-18); Bilirubin, Total 0.4 mg/dL (0.2-1.0); CO2 27.1 mmol/L (21.0-32.0); CREATININE 1.19 mg/dL (0.70-1.30); Calcium 8.4 mg/dL (8.5-10.1); Chloride 104 mmol/L (98-107); Glucose 96 mg/dL (74-106); Potassium 3.9 mmol/L (3.5-5.1); Sodium 139 mmol/L (136-145); Total Protein 6.9 g/dL (6.4-8.2)
[2019-11-05 09:26] LABS: CEA 1.7 ng/mL (See Note)
== END 2019-11-10 23:59 | disposition home or self-care (01) ==
LOC: INF 02:56
PROVIDERS: PCP Internal Medicine; Visit Provider Internal Medicine Hematology & Oncology
DX: C20 Malignant neoplasm of rectum (principal); Z45.2 Encounter for adjustment and management of vascular access device
CPT/HCPCS: 36591; 80053; 82378; 85025

== ENCOUNTER 2020-03-21 07:07 | Outpatient (RCR) | payer MEDICARE, SELFPAY ==
[2020-03-21] MEDS: Normal Saline Flush 10 ML SYR IVP (13:09)
[2020-03-21] MEDS: Heparin 500 UNITS/5 ML SYRINGE IVP (13:10)
[2020-03-21 13:23] LABS: Abs Immature Grans 0.01 k/cumm (0.0-0.09); Absolute Basophil Count 0.04 k/cumm (0.0-0.2); Absolute Monocyte Count 0.56 k/cumm (0.11-0.7); Absolute Neutrophil Count 3.17 k/cumm (1.2-6.7); Basophils % 0.7; Eosinophils % 8.2; HCT 37.4 % (40.0-50.0); HGB 12.7 g/dL (13.5-17.5); Immature Grans % 0.2 %; Lymphocytes % 29.6; Mean Corpuscular Hemoglobin 29.7 pg (27.0-33.0); Mean Corpuscular Volume 87.4 fL (80-95); Monocytes % 9.2; Neutrophils % 52.1; Platelet Count 216 x1000/uL (130-400); RBC 4.28 m/cumm (4.50-6.00); RBC Distribution Width 13.2 % (11.8-14.1); White Blood Cell Count 6.08 k/cumm (4.4-10.8)
[2020-03-21 13:36] LABS: ALT 16 U/L (16-63); AST 17 U/L (15-37); Albumin 3.8 g/dL (3.4-5.0); Alkaline Phosphatase 86 U/L (46-116); BUN 20 mg/dL (7-18); Bilirubin, Total 0.4 mg/dL (0.2-1.0); CREATININE 1.27 mg/dL (0.70-1.30); Calcium 8.9 mg/dL (8.5-10.1); Chloride 103 mmol/L (98-107); Estimated GFR 57.28 (mL/min/1.73m2); Glucose 101 mg/dL (74-106); Potassium 4.3 mmol/L (3.5-5.1); Sodium 138 mmol/L (136-145); Total Protein 7.2 g/dL (6.4-8.2)
[2020-03-24 09:44] LABS: CEA 2.5 ng/mL (See Note)
== END 2020-04-11 23:59 | disposition home or self-care (01) ==
LOC: INF 07:07
PROVIDERS: PCP Internal Medicine; Visit Provider Internal Medicine Hematology & Oncology
DX: C20 Malignant neoplasm of rectum (principal); Z45.2 Encounter for adjustment and management of vascular access device
CPT/HCPCS: 36591; 80053; 82378; 85025

== ENCOUNTER 2020-07-04 12:19 | Outpatient (REF) | payer MEDICARE, SELFPAY ==
[2020-07-04 21:26] LABS: Anion Gap 8.4 mmol/L (3-11); BUN 18 mg/dL (7-18); CO2 25.6 mmol/L (21.0-32.0); CREATININE 1.21 mg/dL (0.70-1.30); Calcium 8.8 mg/dL (8.5-10.1); Chloride 104 mmol/L (98-107); Glucose 84 mg/dL (74-106); Potassium 4.5 mmol/L (3.5-5.1); Sodium 138 mmol/L (136-145)
== END 2020-07-04 12:39 ==
LOC: NCHCN 12:19
PROVIDERS: PCP Internal Medicine; Visit Provider Internal Medicine
DX: R94.4 Abnormal results of kidney function studies (principal)
CPT/HCPCS: 80048

== ENCOUNTER 2020-10-16 01:21 | Outpatient (CLI) | payer MEDICARE, SELFPAY ==
--- NOTE | 2020-10-16 | DI.CT_ITS ---
EXAM: CT CHEST/ABD/PEL W CLINICAL HISTORY: RECTAL CA,GI CA,C20,SURVEILLANCE TECHNIQUE: Imaging Protocol: Axial computed tomography images with coronal and sagittal reformatted images were created and reviewed CONTRAST MATERIAL: Intravenous: Omnipaque 350 Contrast volume:100 mL Oral: Yes COMPARISON: CT ABD PELVIS WITH CONTRAST from 03/07/[address] CHEST ABDOMEN PELVIS W CONTRAST (GENERIC) from 05/05/[address] CHEST/ABD/PEL W from 05/26/[address] ABDOMEN PELVIS WO/W from 05/03/[address] CHEST/ABD/PEL W from 10/12/2019 FINDINGS: CHEST: Tracheobronchial tree: Patent where visualized. Pulmonary parenchyma: No consolidation or dominant measurable mass. There is atelectasis or scarring in the right lung base. Mild dependent atelectasis is seen in the lung bases. No pulmonary nodules are identified. Visualized thyroid gland: Unremarkable. Mediastinum and Dominga: No dominant adenopathy or fluid collection. Pleura: No effusion or pneumothorax. Heart: The heart is not dilated. Moderate coronary artery calcification is seen. No pericardial effu maryan. Pulmonary arteries: No pulmonary embolic disease. Aorta: Thoracic aorta non-dilated. Mild atherosclerosis. Lymph nodes: Within normal limits. Soft tissues: Unremarkable. Bones:No suspicious lytic or sclerotic lesions. Degenerative changes are seen in the thoracic spine. The lucency seen in the T3 vertebral body can be visualized on CT scans dating back to 05/05/2017. ABDOMEN: Liver: Normal density. No measurable mass. Portal, Superior Mesenteric, and Splenic Veins: Unremarkable. Gallbladder and Biliary Tract: No radiodense calculus or dilation. Pancreas: Normal density, no abnormal calcifications or inflammatory process. Spleen: Normal. Adrenals: No masses seen. Kidneys: There patient has an ileal conduit. There is delayed enhancement of the right kidney with w orsening of the dilatation of the right renal collecting system to the level of the ileal conduit. T his may represent obstruction at the ureteral/ileal conduit anastomosis. There are bilateral renal c ysts. The left kidney shows normal enhancement. Abdominal Aorta: Abdominal portion non-dilated. Atherosclerosis. Bowel: There has been resection of the sigmoid and rectum with a left lower quadrant colostomy. Ther e is no evidence of bowel obstruction. Appendix is unremarkable. Peritoneal Cavity: No ascites, collection or mesenteric inflammatory response. No free air. Lymph Nodes: Within normal limits. Bones: No suspicious lytic or sclerotic lesions are seen. The patient is status post L4 laminectomy. Moderately severe degenerative changes are seen in the lumbar spine. Soft Tissues: There is a fat containing left inguinal hernia. PELVIS: Bladder: Status post cystectomy with ileal conduit in place. Lymph Nodes: Within normal limits. Bones: No suspicious lytic or sclerotic lesions. IMPRESSION: 1. Worsening right ureteral dilatation and delayed enhancement of the right kidney. The findings schulte se a question of obstruction, possibly at the level of the ureteral/ileal conduit anastomosis. 2. No evidence of thoracic, abdominal or pelvic metastatic disease. 3. RADIATION DOSE DELIVERED: 1,385.89mGy.cm Total DLP DATA REPOSITORY: All CT scans at this facility are submitted to the National Radiology Data Registry (NRDR) Dose Index Registry (DIR) with the [employer] (A[employer]). RADIATION OPTIMIZATION: All CT scans at this facility use at least one of these dose optimization te chniques: automated exposure control; mA and/or kV adjustment per patient size (includes targeted exa ms where dose is matched to clinical indication); or iterative reconstruction.
[2020-10-16 11:35] LABS: Abs Immature Grans 0.02 10^3/uL (0.0-0.06); Absolute Basophil Count 0.03 10^3/uL (0.0-0.2); Absolute Eosinophil Count 0.42 10^3/uL (0.0-0.7); Absolute Lymphocyte Count 1.17 10^3/uL (1.2-3.4); Absolute Monocyte Count 0.38 10^3/uL (0.1-0.8); Absolute Neutrophil Count 3.52 10^3/uL (1.2-6.7); Basophils % 0.5; Eosinophils % 7.6; HCT 34.1 % (40.0-50.0); HGB 11.4 g/dL (13.5-17.5); Immature Grans % 0.4; Lymphocytes % 21.1; MCH 29.9 pg (27.0-33.0); MCHC 33.4 % (32.0-36.0); MCV 89.5 fL (80-95); MPV 10.6 fL (8.0-11.0); Monocytes % 6.9; Neutrophils % 63.5; Nucleated RBC 0 %; Platelet Count 188 10^3/uL (130-400); RBC 3.81 10^6/uL (4.36-5.78); RDW 13.1 % (11.8-14.1); RDW-SD 43.3 fL; WBC 5.54 10^3/uL (4.4-10.8)
[2020-10-16 11:46] LABS: ALT 13 U/L (16-63); AST 15 U/L (15-37); Albumin 3.5 g/dL (3.4-5.0); Alkaline Phosphatase 87 U/L (46-116); Anion Gap 7.6 mmol/L (3-11); BUN 14 mg/dL (7-18); Bilirubin, Total 0.4 mg/dL (0.2-1.0); CO2 25.4 mmol/L (21.0-32.0); CREATININE 1.4 mg/dL (0.70-1.30); Calcium 8.6 mg/dL (8.5-10.1); Chloride 106 mmol/L (98-107); Estimated GFR 51.18 (mL/min/1.73m2); Glucose 100 mg/dL (74-106); Sodium 139 mmol/L (136-145); Total Protein 6.6 g/dL (6.4-8.2)
[2020-10-16] MEDS: Omnipaque 350 MG/ML 100 ML BTL IJ (13:02)
[2020-10-16] MEDS: Normal Saline - Diluent 50 ML VIAL IV (13:04)
[2020-10-16] MEDS: Omnipaque 350 MG/ML 50 ML BTL IJ (13:06)
[2020-10-16] MEDS: Breeza Beverage 473 ML BTL PO (13:07)
[2020-10-16 18:57] LABS: CEA 2.4 ng/mL (See Note)
== END 2020-10-16 01:22 | disposition home or self-care (01) ==
LOC: DI 01:22
PROVIDERS: PCP Internal Medicine; Visit Provider Nurse Practitioner Family
DX: C20 Malignant neoplasm of rectum (principal)
CPT/HCPCS: 74177; 80053; 71260; 82378; 85025; J3490; Q9967

== ENCOUNTER 2020-10-31 01:21 | Outpatient (CLI) | payer MEDICARE, SELFPAY ==
--- NOTE | 2020-10-31 11:00 | DI.NM_ITS ---
CLINICAL HISTORY: NEW RT HYDRO,DELAYED NEPHROGRAM,S/P ILEAL CONDUIT,? SPLIT FUNCTION,OBSTRUCT. COMPARISON: CT CT ABDOMEN PELVIS WO/W from 05/03/[address] CHEST/ABD/PEL W from 10/12/[address] CHEST/ABD/PEL W from 10/12/[address] CHEST/ABD/PEL W from 10/16/2020 EXAMINATION: Dose: 11.2 mCi Tc-99m DTPA Images: Immediately for 1 minute followed by dynamic for 30 minutes. 21mg Lasix was administered after peak renal uptake at approximately 13 min. FINDINGS: Flow images show significantly decreased flow to the right kidney. The clearance images show dilatat ion of the right renal collecting system. Very little activity is seen in the left renal collecting system Time to peak: Right: 27 min (< 5 min normal) Left: 0.5 min (< 5 min normal) Curve Appearance: Right: T1/2 (Lasix to half-Lasix) greater than 30 minutes Left: T1/2 (Lasix to half-Lasix) 14.3 min The time activity curve reveals mild delay in the washout of left collecting system. The activity in the right kidney continues to increase even following Lasix in administration, consistent with high- grade obstruction.. (< 10 min normal, 10-15 min Low grade obstruction, 15-20 min moderate,. 20 min high grade) Split renal function: Right: 16.7 % Left: 83.3 % IMPRESSION: 1. Dilated, non-obstructed left collecting system. 2. High-grade obstruction of the right renal collecting system.
[2020-10-31] MEDS: Furosemide 40 MG/4 ML VIAL IVP (14:58)
== END 2020-10-31 01:22 ==
LOC: DI 01:21
PROVIDERS: PCP Internal Medicine; Visit Provider Urology
DX: N28.89 Other specified disorders of kidney and ureter (principal); N13.30 Unspecified hydronephrosis; Z98.890 Other specified postprocedural states; Z93.6 Other artificial openings of urinary tract status
CPT/HCPCS: 78708; J1940

== ENCOUNTER 2021-03-30 13:08 | Outpatient (CLI) | payer MEDICARE, SELFPAY ==
[2021-03-30 13:26] LABS: Abs Immature Grans 0.02 10^3/uL (0.0-0.06); Absolute Basophil Count 0.04 10^3/uL (0.0-0.2); Absolute Eosinophil Count 0.44 10^3/uL (0.0-0.7); Absolute Lymphocyte Count 1.14 10^3/uL (1.2-3.4); Absolute Monocyte Count 0.45 10^3/uL (0.1-0.8); Absolute Neutrophil Count 3.89 10^3/uL (1.2-6.7); Basophils % 0.7; Eosinophils % 7.4; HCT 34.6 % (40.0-50.0); HGB 11.3 g/dL (13.5-17.5); Immature Grans % 0.3; Lymphocytes % 19.1; MCHC 32.7 % (32.0-36.0); MCV 88.9 fL (80-95); Monocytes % 7.5; Nucleated RBC 0 %; Platelet Count 185 10^3/uL (130-400); RBC 3.89 10^6/uL (4.36-5.78); RDW 14.2 % (11.8-14.1); RDW-SD 45.9 fL; WBC 5.98 10^3/uL (4.4-10.8)
[2021-03-30 13:40] LABS: ALT 13 U/L (16-63); AST 15 U/L (15-37); Albumin 3.3 g/dL (3.4-5.0); Alkaline Phosphatase 93 U/L (46-116); Anion Gap 9.6 mmol/L (3-11); BUN 13 mg/dL (7-18); Bilirubin, Total 0.2 mg/dL (0.2-1.0); CO2 25.4 mmol/L (21.0-32.0); CREATININE 1.3 mg/dL (0.70-1.30); Calcium 8.5 mg/dL (8.5-10.1); Chloride 105 mmol/L (98-107); Estimated GFR 55.58 (mL/min/1.73m2); Glucose 93 mg/dL (74-106); Sodium 140 mmol/L (136-145); Total Protein 6.6 g/dL (6.4-8.2)
[2021-03-30 22:33] LABS: CEA 2.5 ng/mL (See Note)
== END 2021-03-30 13:09 | disposition home or self-care (01) ==
LOC: LBO 13:09
PROVIDERS: Nurse Practitioner Family; PCP Internal Medicine; Visit Provider Internal Medicine Hematology & Oncology
DX: C20 Malignant neoplasm of rectum (principal)
CPT/HCPCS: 36415; 80053; 82378; 85025

== ENCOUNTER 2021-05-03 07:01 | Inpatient (IN) | payer MEDICARE, SELFPAY ==
[2021-05-03] VITALS (96 sets, daily range): BP systolic 73–160; BP diastolic 51–115; PULSE 0–123; RESP 0–49; TEMP 30–36.4; O2SAT 89–100
--- NOTE | 2021-05-03 07:00 | RT.EKG_ITS ---
APPROVED REPORT Exam: Resting ECG Reason for Exam: chest pain Patient Location: E HR:105 bpm ECG Measurements Heart Rate 105 AXIS ND 137 P 65 QRSd 86 QRS 4 QT 421 T 78 QTc 557 Conclusion Sinus tachycardia...rate> 99 Probable left atrial enlargement...P >50mS, <-0.10mV V1 Anterior infarct, old...Q >40mS, abnormal ST-T, V2-V5 Nonspecific T abnormalities, lateral leads...T <-0.10mV, I aVL V5 V6 Prolonged QT interval...QTc >500mS I have reviewed and interpreted ECG and agree with software generated interpretation.
--- NOTE | 2021-05-03 07:30 | ED.GENADUL_ITS ---
Discharge Plan Disposition Patient Disposition: [facility] INPATIENT Condition: Serious Discharge Details Clinical Impression: NSTEMI (non-ST elevated myocardial infarction), Vomiting, Multifocal pneumonia Admit Date/Time: 05/03/21 12:39 Admit Provider: Bert Canela Attending Provider: Bert Canela Primary Care Provider: Nyla Munoz ED Provider: Hallie Page Discharge Data Discharge Date/Time-TO BE ENTERED AT DEPARTURE: 05/03/21 13:46 Medical Decision Making <Luis Hurd MD - Last Filed: 05/03/21 07:59> Patient presenting with complaint of chest pain associated with persistent and forceful vomiting over the last 36 hours. He is tachycardic but not hypotensive and has no fever here. Doubt he has Boerhaave syndrome but should consider given his complaint. Abdomen seems to be soft and nontender and his colostomy is working but he has had multiple previous surgeries. EKG is sinus rhythm with nonspecific ST changes but no STEMI. At this point IV established and laboratory studies obtained and sent. Fluids and Compazine ordered. Patient does have evidence of QT prolongation on EKG so for now avoid Zofran. CT scan of the chest abdomen pelvis will be done. Patient care turned over to oncoming physician, Dr. Page. Medical Records Medical records reviewed: Yes I reviewed the patient's medical records. ECG Data Attestation: I personally reviewed and interpreted this ECG (s) as follows: Prior ECG tracings: available for review Interpretation: See EKG <Hallie Page DO - Last Filed: 05/04/21 17:12> 0800 --please see Dr. Hurd's note for initial presentation, exam and plan. Case endorsed to follow-up on labs and imaging and final disposition. 66-year-old male with multiple chronic medical problems including previous hi story of colon cancer with colostomy, ileostomy, R nephrostomy tube, presents with vomiting and chest and abdominal pain for the past 36 hours. Also admits to watery brown stool in his colostomy. Nausea improved. Still with chest and epigastric pain at this time. Labs resulting. White blood cell count 29. Troponin is 15.59. Lipase within normal limits. EKG on arrival with a rate of 105, sinus with concern for potential ST elevation in the anterior leads with reciprocal depression in inferior leads. This appears new compared to previous EKG 2019. Prolonged QT of 557. Concern for potential STEMI. Also consider Boerhaave's, aortic dissection, type II ischemia. Repeat EKG notes a rate of 105, sinus with concern for ST elevation in anterior leads and aVL, no obvious inferior lead depressions. [facility] transfer center paged for possible STEMI. 0835 --discussed with [facility] cardiology who reviewed EKGs. aVL in EKG #2 appears concerning potential ACS but anterior leads do not appear consistent with STEMI and may be seen in the left bundle branch block. Agree with plan for stat CT chest abdomen and pelvis. If no evidence of dissection, recommend treatment with aspirin, Plavix 600mg, and heparin drip. Patient took Xarelto yesterday, will hold on heparin bolus. 09 --no obvious dissection on CT. Final read pending. There appears to be bilateral pneumonia, worse on the right, may be aspiration pneumonia secondary to vomiting. Rapid Covid swab obtained. Discussed with [facility] cardiology --patient accepted for transfer. Accepting physician Dr. Grubbs. No bed available until this afternoon. Patient has an allergy to penicillin which he states is unknown and was told as a child. With his multiple chronic medical problems, will treat with Vancomycin and Cefepime. CT negative for PE, dissection, notes patchy bilateral groundglass opacities which may be seen in COVID-19. Oxygen saturation 88% on room air, placed on 2 L nasal cannula. 0945 --Pt c/o increasing shortness of breath. O2 sat 91% on 3 L. Heart rate 120s. He appears anxious about will give neb treatment, Ativan. ABG consistent with respiratory alkalosis sitting with his hyperventilation. pH 7.5. PCO2 25. PO2 75. Patient placed on high flow nasal cannula. 1145 --patient becoming more short of breath. Wet breath sounds. Oxygen saturation 88% on high flow nasal cannula. He appears more restless. He was placed on BiPAP and given a dose of morphine and lasix and appears more comfortable and improved. Oxygen saturation 95%. Repeat EKG notes T wave inversions and anterolateral leads but no STEMI. Repeat troponin downtrending 12.77. Discussed with [facility] cardiology --as troponin downtrending, do not see indication for acute cardiac intervention. They have no beds available for patient at this time. Recommend 48 hours of aspirin, Plavix and heparin drip. Recommend echocardiogram as soon as possible. Case discussed with hospitalist accepts patient for admission. Echo capability tomorrow. Patient remains more comfortable, hemodynamically stable. Medical Records Medical records reviewed: Yes I reviewed the patient's medical records. Imaging Data Radiologic Study: Radiologist's impression: CTA Chest With Contrast Exam date and time: 05/03/2021 8:25 AM Age: 66 years old Clinical indication: Other: Chest and abdominal pain R/O dissection, esophageal tear. History of rectal carcinoma TECHNIQUE: Imaging protocol: Computed tomographic angiography of the chest with contrast. 3D rendering (Not supervised by radiologist): MIP and/or 3D reconstructed images were created by the technologist. Contrast material: OMNIPAUE 350; Contrast volume: 100 ml; Contrast route: INTRAVENOUS (IV); COMPARISON: CT CHEST FOR PE, ABD PELVIS W 10/11/2017 2:36 PM FINDINGS: Pulmonary arteries: No evidence of pulmonary embolus to the segmental level. Aorta: No aneurysm of the aorta. No dissection of the aorta. Lungs: Patchy bilateral ground-glass opacities throughout the right hemithorax and minimally in the left lower lobe may represent multifocal pneumonia including COVID-19. Pleural spaces: Small right pleural effusion. Heart: Coronary artery calcifications may indicate coronary artery disease. Mediastinal space: No pneumo mediastinum to suggest esophageal rupture.. Lymph nodes: Unremarkable. No enlarged lymph nodes. Bones/joints: Unremarkable. No acute fracture. Soft tissues: Unremarkable. IMPRESSION: 1. No evidence of pulmonary embolus to the segmental level. 2. No aneurysm of the aorta. 3. No dissection of the aorta. 4. Small right pleural effusion. 5. Patchy bilateral ground-glass opacities throughout the right hemithorax and minimally in the left lower lobe may represent multifocal pneumonia including COVID-19. 6. No pneumo mediastinum to suggest esophageal rupture.. CTA Abdomen and Pelvis With Contrast Exam date and time: 05/03/2021 8:25 AM Age: 66 years old Clinical indication: Other: Chest and abdominal pain R/O dissection, esophageal tear. History of rectal carcinoma TECHNIQUE: Imaging protocol: Computed tomographic angiography of the abdomen and pelvis with contrast material. 3D rendering (Not supervised by radiologist): MIP and/or 3D reconstructed images were created by the technologist. Contrast material: OMNIPAUE 350; Contrast volume: 100 ml; Contrast route: INTRAVENOUS (IV); COMPARISON: CT CHEST FOR PE, ABD PELVIS W 10/11/2017 2:36 PM FINDINGS: Aorta: No aneurysm of the aorta. No dissection of the aorta. Celiac trunk and mesenteric arteries: No occlusion or significant stenosis. Renal arteries: No occlusion or significant stenosis. Right iliac arteries: No occlusion or significant stenosis. Left iliac arteries: No occlusion or significant stenosis. Liver: No mass. Gallbladder and bile ducts: Unremarkable. No calcified stones. No ductal dilation. Pancreas: Pancreatic atrophy Spleen: Unremarkable. No splenomegaly. Adrenal glands: Unremarkable. No mass. Kidneys and ureters: Nephrostomy tube terminates in the right collecting system.. Dilatation of the left extrarenal pelvis 3 cm. Mild hydronephrosis of the left kidney. Right ureteral stent exits through ileal Stomach and bowel: Left lower quadrant ostomy; ileal conduit and right lower quadrant ostomy. No obstruction Appendix: No evidence of appendicitis. Intraperitoneal space: Unremarkable. No free air. No significant fluid collection. Lymph nodes: Unremarkable. No enlarged lymph nodes. Urinary bladder: Status post cystectomy with ileal conduit in place.. Reproductive: Unremarkable as visualized. Bones/joints: No acute fracture. No dislocation. No lytic lesion Soft tissues: Unremarkable. IMPRESSION: 1. No aneurysm of the aorta. 2. No dissection of the aorta. 3. Nephrostomy tube terminates in the right collecting system.. 4. Dilatation of the left extrarenal pelvis 3 cm. Mild hydronephrosis of the left kidney. 5. Ileal conduit and right lower quadrant ostomy. 6. Status post cystectomy with ileal conduit in place.. Lab Data Lab results reviewed: Yes I reviewed the patient's lab results. Labs: Laboratory Tests Range/Units 05/03/21 05/03/21 05/03/21 07:20 07:20 07:20 WBC (4.4-10.8) 10^3/uL 29.13 H* RBC (4.36-5.78) 10^6/uL 4.89 Hgb (13.5-17.5) g/dL 14.0 Hct (40.0-50.0) % 41.5 MCV (80-95) fL 84.9 MCH (27.0-33.0) pg 28.6 MCHC (32.0-36.0) % 33.7 RDW (11.8-14.1) % 14.0 Plt Count (130-400) 10^3/uL 409 H MPV (8.0-11.0) fL 10.1 Immature Gran % 1.0 Neutrophils % 85.7 Lymphocytes % 6.8 Monocytes % 6.3 Eosinophils % 0.0 Basophils % 0.2 Nucleated RBC % % 0 Absolute Neutrophils (1.2-6.7) 10^3/uL 24.96 H Absolute Lymphocytes (1.2-3.4) 10^3/uL 1.98 Absolute Monocytes (0.1-0.8) 10^3/uL 1.84 H Absolute Eosinophils (0.0-0.7) 10^3/uL 0.00 Absolute Basophils (0.0-0.2) 10^3/uL 0.06 RBC Morphology Normal PT (9.3-11.0) sec 11.0 INR (0.9-1.1) 1.1 APTT (21.0-27.5) sec 24.7 ABG Sample Site ABG pH (7.35-7.45) ABG pCO2 (35-45) mmHg ABG pO2 (80-105) mmHg ABG HCO3 (22-26) mmol/L ABG Total CO2 (23-27) mmol/L ABG O2 Saturation (95-98) % ABG Base Excess (-2-3) mmol/L VBG Lactate (0.6-1.4) mmol/L Oxygen Liter Flow L Sodium (136-145) mmol/L 136 Potassium (3.5-5.1) mmol/L 3.8 Chloride (98-107) mmol/L 97 L Carbon Dioxide (21.0-32.0) mmol/L 24.0 Anion Gap (3-11) mmol/L 15.0 H BUN (7-18) mg/dL 27 H Creatinine (0.70-1.30) mg/dL 1.7 H Estimated GFR/1.73 m2 (mL/min/1.73m2) 40.78 Glucose (74-106) mg/dL 149 H Calcium (8.5-10.1) mg/dL 9.6 Magnesium (1.8-2.4) mg/dL 1.9 Total Bilirubin (0.2-1.0) mg/dL 0.5 AST (15-37) U/L 84 H ALT (16-63) U/L 29 Alkaline Phosphatase (46-116) U/L 99 Troponin I (<0.06) ng/mL 15.59 H* NT-Pro-B Natriuret Pep (<300) pg/mL Total Protein (6.4-8.2) g/dL 8.1 Albumin (3.4-5.0) g/dL 3.6 Lipase (73-393) U/L 39 COVID-19 Source SARS-CoV-2 (PCR) (Negative) Range/Units 05/03/21 05/03/21 05/03/21 07:20 09:20 10:22 WBC (4.4-10.8) 10^3/uL RBC (4.36-5.78) 10^6/uL Hgb (13.5-17.5) g/dL Hct (40.0-50.0) % MCV (80-95) fL MCH (27.0-33.0) pg MCHC (32.0-36.0) % RDW (11.8-14.1) % Plt Count (130-400) 10^3/uL MPV (8.0-11.0) fL Immature Gran % Neutrophils % Lymphocytes % Monocytes % Eosinophils % Basophils % Nucleated RBC % % Absolute Neutrophils (1.2-6.7) 10^3/uL Absolute Lymphocytes (1.2-3.4) 10^3/uL Absolute Monocytes (0.1-0.8) 10^3/uL Absolute Eosinophils (0.0-0.7) 10^3/uL Absolute Basophils (0.0-0.2) 10^3/uL RBC Morphology PT (9.3-11.0) sec INR (0.9-1.1) APTT (21.0-27.5) sec ABG Sample Site Right Radial ABG pH (7.35-7.45) 7.50 H ABG pCO2 (35-45) mmHg 25 L ABG pO2 (80-105) mmHg 75 L ABG HCO3 (22-26) mmol/L 20 L ABG Total CO2 (23-27) mmol/L 17 L ABG O2 Saturation (95-98) % 96 ABG Base Excess (-2-3) mmol/L -4 L VBG Lactate (0.6-1.4) mmol/L Oxygen Liter Flow L 10 with Neb Sodium (136-145) mmol/L Potassium (3.5-5.1) mmol/L Chloride (98-107) mmol/L Carbon Dioxide (21.0-32.0) mmol/L Anion Gap (3-11) mmol/L BUN (7-18) mg/dL Creatinine (0.70-1.30) mg/dL Estimated GFR/1.73 m2 (mL/min/1.73m2) Glucose (74-106) mg/dL Calcium (8.5-10.1) mg/dL Magnesium (1.8-2.4) mg/dL Total Bilirubin (0.2-1.0) mg/dL AST (15-37) U/L ALT (16-63) U/L Alkaline Phosphatase (46-116) U/L Troponin I (<0.06) ng/mL NT-Pro-B Natriuret Pep (<300) pg/mL > 48006 H Total Protein (6.4-8.2) g/dL Albumin (3.4-5.0) g/dL Lipase (73-393) U/L COVID-19 Source Nasal/Nares SARS-CoV-2 (PCR) (Negative) Negative Range/Units 05/03/21 05/03/21 11:35 13:09 WBC (4.4-10.8) 10^3/uL RBC (4.36-5.78) 10^6/uL Hgb (13.5-17.5) g/dL Hct (40.0-50.0) % MCV (80-95) fL MCH (27.0-33.0) pg MCHC (32.0-36.0) % RDW (11.8-14.1) % Plt Count (130-400) 10^3/uL MPV (8.0-11.0) fL Immature Gran % Neutrophils % Lymphocytes % Monocytes % Eosinophils % Basophils % Nucleated RBC % % Absolute Neutrophils (1.2-6.7) 10^3/uL Absolute Lymphocytes (1.2-3.4) 10^3/uL Absolute Monocytes (0.1-0.8) 10^3/uL Absolute Eosinophils (0.0-0.7) 10^3/uL Absolute Basophils (0.0-0.2) 10^3/uL RBC Morphology PT (9.3-11.0) sec INR (0.9-1.1) APTT (21.0-27.5) sec ABG Sample Site ABG pH (7.35-7.45) ABG pCO2 (35-45) mmHg ABG pO2 (80-105) mmHg ABG HCO3 (22-26) mmol/L ABG Total CO2 (23-27) mmol/L ABG O2 Saturation (95-98) % ABG Base Excess (-2-3) mmol/L VBG Lactate (0.6-1.4) mmol/L 5.2 H* Oxygen Liter Flow L Sodium (136-145) mmol/L Potassium (3.5-5.1) mmol/L Chloride (98-107) mmol/L Carbon Dioxide (21.0-32.0) mmol/L Anion Gap (3-11) mmol/L BUN (7-18) mg/dL Creatinine (0.70-1.30) mg/dL Estimated GFR/1.73 m2 (mL/min/1.73m2) Glucose (74-106) mg/dL Calcium (8.5-10.1) mg/dL Magnesium (1.8-2.4) mg/dL Total Bilirubin (0.2-1.0) mg/dL AST (15-37) U/L ALT (16-63) U/L Alkaline Phosphatase (46-116) U/L Troponin I (<0.06) ng/mL 12.77 H* NT-Pro-B Natriuret Pep (<300) pg/mL Total Protein (6.4-8.2) g/dL Albumin (3.4-5.0) g/dL Lipase (73-393) U/L COVID-19 Source SARS-CoV-2 (PCR) (Negative) ECG Data Attestation: I personally reviewed and interpreted this ECG (s) as follows: Interpretation: #1 -- rate of 105, sinus, questionable ST elevation in V2 to V4 of 1 mm. Questionable less than 1 mm depression in 2, 3 and aVF. Prolonged QT at 557. GA 137. QRS 86. #2 -- rate of 105, sinus, potential [address] elevation in V2 through V4. Concern for [address] elevation in aVL. No significant ST depressions seen in the inferior leads. GA 99. Prolonged QT at 563. QRS 82. HPI <Luis Hurd MD - Last Filed: 05/03/21 07:59> General Mode of arrival: wheelchair . Date/Time Provider Initiated Documentation: 05/03/21 07:23 . Limitations to Documentation: no limitations . Information obtained by: patient, RN notes reviewed and old records reviewed . HPI Narrative: Patient presents to ED with complaint of chest pain that he relates to persistent vomiting since Tuesday morning at 2 AM. He reports inability to keep anything down at this point including water or servando micky. He has been vomiting and dry heaving all day Tuesday into this morning. He denies having difficulty breathing. Chest pain is worse after vomiting. He does have some abdominal pain but feels it related to the vomiting. He has had no hematemesis. Denies fever. Reports vomiting started after eating a seafood stop. He has had multiple abdominal surgeries secondary to colorectal cancer. Currently has a colostomy, nephrostomy tube on the right, and urostomy as well. All 3 are currently working. He is passing liquid stool as well as urine. He is extremely weak at this point and came in for evaluation. Related Data Home Medications Medication Instructions Recorded Confirmed metoprolol tartrate 25 mg PO HS 05/11/17 05/03/21 nitroglycerin [Nitrostat] 0.4 mg SUBLINGUAL DAILY 10/11/17 05/03/21 methadone 10 mg PO TID 03/21/18 05/03/21 oxycodone 10 mg PO 6X/DAY 04/30/19 05/04/21 rivaroxaban 10 mg tablet 10 mg PO DAILY 07/06/19 05/03/21 Movantik 12.5 mg PO HS 07/12/19 05/03/21 Allergies Allergy/AdvReac Type Severity Reaction Status Date / Time penicillin G Allergy Verified 05/03/21 07:15 General Stated Complaint: Chest Pain STACIA: 2 Review of Systems <Luis Hurd MD - Last Filed: 05/03/21 07:59> Narrative: 06/25 Review of Systems completed and is negative except as stated above in HPI (Systems reviewed: Const, Eyes, ENT, Resp, CV, GI, , MSK, Skin, Neuro) PFSH <Luis Hurd MD - Last Filed: 05/03/21 07:59> Medical History ASCVD (arteriosclerotic cardiovascular disease) Chronic low back pain Colorectal polyps (~07/16/19) COPD (chronic obstructive pulmonary disease) History of chemotherapy (12/12/17) History of colon cancer stage 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 s/p preOp chemo & XRT APR and radical cystecyomy/prostectomy postOp adjuvent chemo History of prostate cancer Hx of non-ST elevation myocardial infarction (NSTEMI) pt had cath 2016. x2 vessel Dx. treated w/ meds only last echo 2017: EF 48% Port-A-Cath in place Rectal cancer (02/10/17) Smoker Stomal prolapse Surgical History Colostomy (05/18/17) s/p APR. permanent stoma. EGD - IV Sedation (03/11/17) Prostatectomy / Cystectomy (09/27/17) S/P colonoscopy (~07/16/19) Sigmoidoscopy (03/11/17) Spinal Surgery laminectomy L4-L5 Family History Other Cancer Emphysema lung Heart disease Social History Smoking/Tobacco Use Status: Current every day Tobacco Type: cigarettes Smoking risk assessment performed?: Yes Alcohol Intake: former Drug use: Occasionally Substance use type: marijuana Current gender identity: male Do you feel safe at home: Yes Do you feel safe in your relationship?: Yes Exam <Luis Hurd MD - Last Filed: 05/03/21 07:59> Narrative Exam Narrative: Const: Thin, frail, elderly appearing male in NAD. HEENT: NC/AT. Normal facial exam. Eyes: Normal conjunctiva and sclera. Neck: Supple. Trachea midline. Lungs: Seems mildly tachypneic but is in no distress. Lungs are clear. Cor: RRR without murmur/gallop. Tachycardic. Good radial pulses. GI: Soft and ND. No guarding or rebound. Colostomy in left lower quadrant. Urostomy right lower quadrant. Neuro: A+O x 3. Normal speech, mentation. Cranial nerves II - XII grossly intact. No gross motor or sensory deficit. Ext: No C/C/E. Skin: Warm and dry without rash. Course <Luis Hurd MD - Last Filed: 05/03/21 07:59> Vital Signs Vital signs: Vital Signs Temperature 97.5 F L 05/03/21 07:10 Pulse 108 H 05/03/21 07:10 Respiratory Rate 31 H 05/03/21 07:10 Blood Pressure 128/90 05/03/21 07:10 Pulse Oximetry 96 05/03/21 07:10 Temperature 97.5 F L 05/03/21 07:10 Temperature Source Oral 05/03/21 07:10 Pulse 108 H 05/03/21 07:10 Respiratory Rate 26 H 05/03/21 07:20 Respiratory Effort 05/03/21 07:20 Respiratory Depth Normal 05/03/21 07:20 Respiratory Pattern Normal 05/03/21 07:20 Blood Pressure 128/90 05/03/21 07:10 Blood Pressure Position Supine 05/03/21 07:10 Pulse Oximetry 96 05/03/21 07:10 Oxygen Delivery Method Room Air 05/03/21 07:10 Oxygen Flow Rate 0 05/03/21 07:10 Pain Level 7 05/03/21 07:20 Comment 05/03/21 07:10 <Hallie Page DO - Last Filed: 05/04/21 17:12> Critical Care Time Critical Care Time: Yes Total Critical Care Time: 90 Attestation: I spent 90 minutes of critical care time with this patient. This does not include time spent on separately reported billable procedures. Sign Out <Luis Hurd MD - Last Filed: 05/03/21 07:59> Sign Out Data: Sign Out Comment: Presenting with chest pain and vomiting. Laboratory studies and imaging pending. Last updated by Luis Hurd MD at 05/03/21 07:41
[2021-05-03] MEDS: Lactated Ringers 1,000 ML 1000 ML IV (07:39)
[2021-05-03] MEDS: Prochlorperazine 10 MG/2 ML VIAL IVP (07:44)
[2021-05-03] MEDS: Normal Saline Flush 10 ML SYR IVP ×5 (07:45→17:18)
[2021-05-03 07:51] LABS: Basophils % 0.2; HCT 41.5 % (40.0-50.0); Lymphocytes % 6.8; MCH 28.6 pg (27.0-33.0); MCHC 33.7 % (32.0-36.0); MCV 84.9 fL (80-95); MPV 10.1 fL (8.0-11.0); Monocytes % 6.3; Neutrophils % 85.7; Nucleated RBC 0 %; RBC 4.89 10^6/uL (4.36-5.78); RDW-SD 43.1 fL
[2021-05-03 07:54] LABS: Absolute Basophil Count 0.06 10^3/uL (0.0-0.2); Absolute Lymphocyte Count 1.98 10^3/uL (1.2-3.4); Absolute Monocyte Count 1.84 10^3/uL (0.1-0.8); Absolute Neutrophil Count 24.96 10^3/uL (1.2-6.7); WBC 29.13 10^3/uL (4.4-10.8)
[2021-05-03 08:10] LABS: ALT 29 U/L (16-63); AST 84 U/L (15-37); Albumin 3.6 g/dL (3.4-5.0); Alkaline Phosphatase 99 U/L (46-116); BUN 27 mg/dL (7-18); Bilirubin, Total 0.5 mg/dL (0.2-1.0); CREATININE 1.7 mg/dL (0.70-1.30); Calcium 9.6 mg/dL (8.5-10.1); Chloride 97 mmol/L (98-107); Estimated GFR 40.78 (mL/min/1.73m2); Glucose 149 mg/dL (74-106); Lipase 39 U/L (73-393); Magnesium 1.9 mg/dL (1.8-2.4); Potassium 3.8 mmol/L (3.5-5.1); Sodium 136 mmol/L (136-145); Total Protein 8.1 g/dL (6.4-8.2)
[2021-05-03 08:11] LABS: Platelet Count 409 10^3/uL (130-400)
[2021-05-03 08:12] LABS: Diff Comment Agrees w/ Instrument; RBC Morphology Normal
[2021-05-03 08:14] LABS: Troponin I 15.59 ng/mL (<0.06)
--- NOTE | 2021-05-03 08:15 | RT.EKG_ITS ---
APPROVED REPORT Exam: Resting ECG Reason for Exam: chest pain Patient Location: E HR:105 bpm ECG Measurements Heart Rate 105 AXIS LA 99 P 6 QRSd 82 QRS 34 QT 424 T 83 QTc 563 Conclusion Sinus tachycardia...rate> 99 Anteroseptal infarct, age indeterminate...Q >35mS, T neg, V1-V2 Prolonged QT interval...QTc >500mS. Possible 1mm ST elevation in V2-4, aVL. I have reviewed and interpreted ECG and agree with software generated interpretation.
--- NOTE | 2021-05-03 08:15 | DI.CT_ITS ---
Exam(s) CT THORAX ABD/PEL CTA EXAM: CT THORAX ABD/PEL CTA CLINICAL HISTORY: chest and abdominal pain. TECHNIQUE: Imaging Protocol: Axial computed tomography images with coronal and sagittal reformatted images were created and reviewed CONTRAST MATERIAL: Intravenous: Omnipaque 350 Contrast volume:100 ml Oral: None COMPARISON: CT CT CHEST/ABD/PEL W from 10/16/2020 FINDINGS: CHEST: Aortic arch anatomy is conventional. Thoracic aorta exhibits normal diameter. No dissection. No ev idence of abdominal aortic aneurysm. Abdominal aorta is calcified but not enlarged. Aortic bifurcat ion is patent. There is nonobstructive dissection flap in the left common iliac artery. Mild stenos is in this vessel. Stenosis at the origin of both internal iliac arteries, more so on the left side. Both external iliac arteries exhibit normal diameters as do both common femoral arteries and the vi sualized proximal SFA arteries. LUNGS: There is ground-glass infiltrate involving all lobes of the right lung and there is a moderate size unilateral right pleural effusion. Also mild confluent infiltrate in the right lung base. No pleural effusion on the opposite-left side and no infiltrate in the left lung.. MEDIASTINUM: There is no hilar nor mediastinal adenopathy. Visualized thyroid unremarkable. CARDIAC: Heart size upper normal. There is no pericardial effusion. Coronary artery calcifications noted. AORTA: Caliber of the thoracic aorta is within normal limits.There is no evidence of aortic dissectio n. ABDOMEN: \ There is no ascites. LIVER: There are no focal hepatic lesions nor dilatation of intrahepatic ducts. GALLBLADDER/BILIARY: No obvious gallbladder pathology. CBD is not dilated. PANCREAS: Atrophy. Pancreatic duct is not dilated. SPLEEN: Spleen is not enlarged. There are no intrasplenic lesions. Splenic and portal veins are mcfadden nt. ADRENALS: There are no significant adrenal masses. KIDNEYS: Right nephrostomy tube and right ureteral stent minutes continues down the ureter into right anterior abdominal wall ostomy bag from ileal conduit. No hydronephrosis on the right side. No johana culi. No masses in the right kidney. Left kidney exhibits mild hydronephrosis. Diameter of the ext rarenal left renal pelvis sys is 3.2 cm. Diameter of the left kidney infundibulum I is 7-8 millimete rs. Left ureter continues into an ileal conduit in this patient has had a cystectomy.. ABDOMINAL AORTA: The abdominal aorta is not enlarged. LYMPH NODES: There is no retroperitoneal nor para-aortic adenopathy. No obvious mesenteric masses. ABDOMINAL WALL: Bilateral anterior abdominal wall ostomy sites. GI: There is no evidence of bowel obstruction, free air, nor abscess. PELVIS: LYMPH NODES: There is no intrapelvic nor inguinal adenopathy. GI: No evidence of appendicitis.No evidence of sigmoid diverticulitis. URINARY BLADDER: Surgically absent. REPRODUCTIVE: Prostate gland is surgically absent OSSEOUS: No significant osseous lesions. IMPRESSION: 1. Extensive ground-glass infiltrates in the right lung with moderate size right pleural effusion. 2. Previous cystectomy and prostatectomy. Ileal conduit with mild hydronephrosis of the left kidney. Right nephrostomy tube appears to extend a single unit through the kidney down through the right ur eter and terminates in the right anterior abdominal wall ostomy. There is no dilatation of the right collecting system. 3. No bowel obstruction. No free air. No ascites. 4. No evidence of aortic aneurysm in the chest and abdomen. There appears to be nonobstructive intim al flap in the left common iliac artery. RADIATION DOSE DELIVERED: 851.44mGy.cm Total DLP DATA REPOSITORY: All CT scans at this facility are submitted to the National Radiology Data Registry (NRDR) Dose Index Registry (DIR) with the [employer] (ACR). RADIATION OPTIMIZATION: All CT scans at this facility use at least one of these dose optimization te chniques: automated exposure control; mA and/or kV adjustment per patient size (includes targeted exa ms where dose is matched to clinical indication); or iterative reconstruction.
[2021-05-03] MEDS: FAMOTIDINE 20 MG/50 ML BAG 200 MG IVPB (08:19)
[2021-05-03 08:32] LABS: INR 1.1 (0.9-1.1); PTT Activated 24.7 sec (21.0-27.5)
[2021-05-03] MEDS: Omnipaque 350 MG/ML 100 ML BTL IJ (09:06)
[2021-05-03] MEDS: Omnipaque 350 MG/ML 50 ML BTL IJ (09:06)
[2021-05-03 09:09] LABS: NT-proBNP > 35000 pg/mL (<300)
[2021-05-03 09:24] LABS: Source Nasal/Nares
[2021-05-03] MEDS: Clopidogrel 300 MG TAB 600 MG PO (09:29)
[2021-05-03] MEDS: Aspirin 325 MG TAB PO (09:29)
--- NOTE | 2021-05-03 09:35 | DI.VRAD_ITS ---
PROCEDURE INFORMATION: Exam: CTA Chest With Contrast Exam date and time: 05/03/2021 8:25 AM Age: 66 years old Clinical indication: Other: Chest and abdominal pain R/O dissection, esophageal tear. History of rectal carcinoma TECHNIQUE: Imaging protocol: Computed tomographic angiography of the chest with contrast. 3D rendering (Not supervised by radiologist): MIP and/or 3D reconstructed images were created by the technologist. Contrast material: OMNIPAUE 350; Contrast volume: 100 ml; Contrast route: INTRAVENOUS (IV); COMPARISON: CT CHEST FOR PE, ABD PELVIS W 10/11/2017 2:36 PM FINDINGS: Pulmonary arteries: No evidence of pulmonary embolus to the segmental level. Aorta: No aneurysm of the aorta. No dissection of the aorta. Lungs: Patchy bilateral ground-glass opacities throughout the right hemithorax and minimally in the left lower lobe may represent multifocal pneumonia including COVID-19. Pleural spaces: Small right pleural effusion. Heart: Coronary artery calcifications may indicate coronary artery disease. Mediastinal space: No pneumo mediastinum to suggest esophageal rupture.. Lymph nodes: Unremarkable. No enlarged lymph nodes. Bones/joints: Unremarkable. No acute fracture. Soft tissues: Unremarkable. IMPRESSION: 1. No evidence of pulmonary embolus to the segmental level. 2. No aneurysm of the aorta. 3. No dissection of the aorta. 4. Small right pleural effusion. 5. Patchy bilateral ground-glass opacities throughout the right hemithorax and minimally in the left lower lobe may represent multifocal pneumonia including COVID-19. 6. No pneumo mediastinum to suggest esophageal rupture.. PROCEDURE INFORMATION: Exam: CTA Abdomen and Pelvis With Contrast Exam date and time: 05/03/2021 8:25 AM Age: 66 years old Clinical indication: Other: Chest and abdominal pain R/O dissection, esophageal tear. History of rectal carcinoma TECHNIQUE: Imaging protocol: Computed tomographic angiography of the abdomen and pelvis with contrast material. 3D rendering (Not supervised by radiologist): MIP and/or 3D reconstructed images were created by the technologist. Contrast material: OMNIPAUE 350; Contrast volume: 100 ml; Contrast route: INTRAVENOUS (IV); COMPARISON: CT CHEST FOR PE, ABD PELVIS W 10/11/2017 2:36 PM FINDINGS: Aorta: No aneurysm of the aorta. No dissection of the aorta. Celiac trunk and mesenteric arteries: No occlusion or significant stenosis. Renal arteries: No occlusion or significant stenosis. Right iliac arteries: No occlusion or significant stenosis. Left iliac arteries: No occlusion or significant stenosis. Liver: No mass. Gallbladder and bile ducts: Unremarkable. No calcified stones. No ductal dilation. Pancreas: Pancreatic atrophy Spleen: Unremarkable. No splenomegaly. Adrenal glands: Unremarkable. No mass. Kidneys and ureters: Nephrostomy tube terminates in the right collecting system.. Dilatation of the left extrarenal pelvis 3 cm. Mild hydronephrosis of the left kidney. Right ureteral stent exits through ileal Stomach and bowel: Left lower quadrant ostomy; ileal conduit and right lower quadrant ostomy. No obstruction Appendix: No evidence of appendicitis. Intraperitoneal space: Unremarkable. No free air. No significant fluid collection. Lymph nodes: Unremarkable. No enlarged lymph nodes. Urinary bladder: Status post cystectomy with ileal conduit in place.. Reproductive: Unremarkable as visualized. Bones/joints: No acute fracture. No dislocation. No lytic lesion Soft tissues: Unremarkable. IMPRESSION: 1. No aneurysm of the aorta. 2. No dissection of the aorta. 3. Nephrostomy tube terminates in the right collecting system.. 4. Dilatation of the left extrarenal pelvis 3 cm. Mild hydronephrosis of the left kidney. 5. Ileal conduit and right lower quadrant ostomy. 6. Status post cystectomy with ileal conduit in place.. Dictated and Authenticated by: Suze Young MD. Ordering:KAYLEIGH Sterling MD
[2021-05-03] MEDS: LORazepam 2 MG/ML VIAL 1 MG IVP ×3 (09:56→17:32)
[2021-05-03] MEDS: CEFEPIME 2 GM in Normal Saline 100 ML IVPB (09:57)
[2021-05-03] MEDS: Levalbuterol 0.63 MG/3 ML UPD VIAL 1.9 MG UPD (10:15)
[2021-05-03 10:20] LABS: COVID-19 PCR Negative (Negative)
[2021-05-03 10:23] LABS: BE -4 mmol/L (-2-3); HCO3 20 mmol/L (22-26); pCO2 25 mmHg (35-45); pO2 75 mmHg (80-105); sO2 96 % (95-98); tCO2 17 mmol/L (23-27)
[2021-05-03 10:26] LABS: Site Right Radial
[2021-05-03] MEDS: methylPREDNISolone SUCC 125 MG VIAL IVP (10:29)
[2021-05-03] MEDS: VANCOMYCIN 1,000 MG in Normal Saline 250 ML 166.6666 MG IVPB (10:33)
--- NOTE | 2021-05-03 11:15 | RT.EKG_ITS ---
APPROVED REPORT Exam: Resting ECG Reason for Exam: shortness of breath Patient Location: E HR:116 bpm ECG Measurements Heart Rate 116 AXIS WI 135 P 38 QRSd 93 QRS 8 QT 328 T 102 QTc 457 Conclusion Sinus tachycardia...rate> 99 Probable left atrial enlargement...P >50mS, <-0.10mV V1 Probable anteroseptal infarct, recent...Q, ST>0.15mV, T neg, V1-V2. T wave inversions in V3-4, aVL, appears new. I have reviewed and interpreted ECG and agree with software generated interpretation. No STEMI.
--- NOTE | 2021-05-03 11:25 | NUR.NOTE ---
Nursing Note: [phone] Claire ()
--- NOTE | 2021-05-03 11:45 | DI.RAD_ITS ---
Exam(s) XR PORTABLE CHEST AP EXAM: XR PORTABLE CHEST AP CLINICAL HISTORY: shortness of breath, r/o acute disease. TECHNIQUE: 2D digital imaging was performed. COMPARISON: CR CHEST 2 VIEWS PA,LAT from 02/17/2018 FINDINGS: Heart size is upper normal. The mediastinum is not widened. Left lung is clear but there is extensive infiltrate in the right lung. No obvious pleural effusions. No pneumothorax. IMPRESSION: Extensive right lung infiltrates. No obvious pleural effusions. DATA REPOSITORY: RADIATION DOSE DELIVERED: All CT scans at this facility use at least one of these dose optimization techniques: automated exposure control; mA and/or kV adjustment per patient size (includes targeted e xams where dose is matched to clinical indication); or iterative reconstruction.
[2021-05-03] MEDS: MORPHine 4 MG/ML SYR IVP ×3 (11:53→17:16)
[2021-05-03] MEDS: Furosemide 100 MG/10 ML VIAL 80 MG IVP (11:53)
[2021-05-03 12:14] LABS: Troponin I 12.77 ng/mL (<0.06)
--- NOTE | 2021-05-03 12:34 | DI.VRAD_ITS ---
PROCEDURE INFORMATION: Exam: XR Chest Exam date and time: 05/03/2021 11:46 AM Age: 66 years old Clinical indication: Shortness of breath TECHNIQUE: Imaging protocol: XR of the chest. Views: 1 view. COMPARISON: CT THORAX ABD/PEL CTA 05/03/2021 8:52 AM FINDINGS: Tubes, catheters and devices: Overlying EKG wires Lungs: Patchy bilateral opacities more pronounced on the right consistent with multifocal pneumonia including COVID-19.. Pleural spaces: Unremarkable. No pleural effusion. No pneumothorax. Heart/Mediastinum: Unremarkable. No cardiomegaly. Bones/joints: Unremarkable. IMPRESSION: Patchy bilateral opacities more pronounced on the right consistent with multifocal pneumonia including COVID-19.. Dictated and Authenticated by: Suze Young MD. Ordering:KAYLEIGH Sterling MD
[2021-05-03] MEDS: Lactated Ringers 1,000 ML 100 ML IV (12:38)
[2021-05-03 13:17] LABS: Lactate 5.2 mmol/L (0.6-1.4)
[2021-05-03 15:16] LABS: PTT Activated 29.2 sec (21.0-27.5)
[2021-05-03 15:52] LABS: Lactate 4.7 mmol/L (0.6-1.4)
--- NOTE | 2021-05-03 16:08 | W.PM.HP.N ---
Date of service: 05/03/21 Time of Service: 15:31 Assessment and Plan Assessment and plan (1) NSTEMI (non-ST elevated myocardial infarction): Status: Acute Assessment and plan: Demand ischemia from stress of vomitting and questionable PNA. [facility] [place] and lab and don't believe interventions needed currently. Echocardiogram in the AM Trend troponin. Peak troponin of 15.59, now 9.67. Heparin drip. Aspirin daily. Plavix loading in ED then 75mg daily. (2) Vomiting: Status: Acute Assessment and plan: He relates the emesis to eating seafood. Stool bacterial pathogen testing ordered. No diarrhea noted however. Prochlorperazine in the ED and no further emesis noted. (3) Multifocal pneumonia: Status: Acute Assessment and plan: Possible PNA vs pulmonary edema. Procalcitonin ordered and is pending. Trend WBC count that was elevated on admission but could be related to his significant emesis. Cont Cefepime. Given Vancomycin in the ED but will not continue at this time. (4) History of colon cancer: Status: Acute Assessment and plan: s/p resection and ostomy formation. Brown liquid stool in ostomy bag. (5) Smoker: Status: Acute Assessment and plan: Nicoderm transdermal patch initiated. (6) COPD (chronic obstructive pulmonary disease): Status: Chronic Assessment and plan: PRN xopenex. IV Solumedrol 125mg given in ED. Planning pulmonary medicine consult in AM. (7) ASCVD (arteriosclerotic cardiovascular disease): Status: Acute Assessment and plan: Home med list did not include ASA, Plavix. Is on BB Now on Plavix (loading dose given in ED). [place] [facility] [place] case several times during his ED evaluation today. Consult cardiology to see during this admission. (8) Pulmonary embolism: Status: Chronic Assessment and plan: On xarelto; hold currently. On heparin drip for 48 hours. Qualifiers: Pulmonary embolism type: single subsegmental (without acute cor pulmonale) Qualified Code(s): I26.93 - Single subsegmental pulmonary embolism without acute cor pulmonale History of Present Illness History of Present Illness Chief Complaint: Chest Pain, Emesis Narrative: This is a 66 yo male with a PMH of colon cancer with colostomy and urostomy, COPD, current tobacco user, ASCVD, pulmonary embolism. He presented to ED with complaint of chest pain that he relates to persistent vomiting since Tuesday morning at 2 AM. He endorsed the inability to keep anything down currently, including water or servando micky. Initially denied difficulty breathing. Chest pain worsens after vomiting. He endorses abdominal pain but feels it related to the vomiting. He has had no hematemesis. Denies fever. Reports vomiting started after eating seafood. He has had multiple abdominal surgeries secondary to colorectal cancer. Currently has a colostomy, nephrostomy tube on the right, and urostomy as well. All 3 are currently working. Passing liquid stool per ostomy as well as urine. No cough/sputum. Initial EKG showed sinus tachycardia and nonspecific ST changes but concerns for ST elevation in anterior leads and reciprical depression in inferior leads. IV compazine given (zofran avoided d/t QT prolongation of 557). WBC count elevated at 29. Troponin elevated at 15.59. Lipase normal. + tachypnea. [facility] [place]. aVL in second EKG concerning for potential ACS but anterior leads thought not to be consistent with STEMI and may be seen in LBBB. CT ches/abd/pelvis obtained. No dissection or pulmonary emboli seens. Bilateral patch groundglass opacities noted; infection vs pulmonary edema. NTproBNP >99202. Cefepime and Vancomycin initiated in ED. Heparin bolus and drip initiated. Plavix 600 mg given. Covid testing was negative. He was also noted to be fully vaccinated for Covid 19. RA saturations in the upper 80's. O2 per NC initiated. Nebs given. Tachynpea and anxiety improved after ativan and morphine. ABG showed pH of 7.5, pCO2 25, pO2 75. Resp alkalosis. BiPAP then initiated and tolerated well. Troponin trending downward. Admitted to ICU with planned telemetry, echocardigram, troponin trending. Review of Systems All systems reviewed & are unremarkable except as noted in HPI and below PFSH Medical History ASCVD (arteriosclerotic cardiovascular disease) Chronic low back pain Colorectal polyps (~07/16/19) COPD (chronic obstructive pulmonary disease) History of chemotherapy (12/12/17) History of colon cancer stage 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 s/p preOp chemo & XRT APR and radical cystecyomy/prostectomy postOp adjuvent chemo History of prostate cancer Hx of non-ST elevation myocardial infarction (NSTEMI) pt had cath 2016. x2 vessel Dx. treated w/ meds only last echo 2017: EF 48% Port-A-Cath in place Rectal cancer (02/10/17) Smoker Stomal prolapse Surgical History Colostomy (05/18/17) s/p APR. permanent stoma. EGD - IV Sedation (03/11/17) Prostatectomy / Cystectomy (09/27/17) S/P colonoscopy (~07/16/19) Sigmoidoscopy (03/11/17) Spinal Surgery laminectomy L4-L5 Family History Other Cancer Emphysema lung Heart disease Social History (Updated 05/03/21 @ 11:19 by Hallie Page DO) Smoking/Tobacco Use Status: Current every day Tobacco Type: cigarettes Smoking risk assessment performed?: Yes Alcohol Intake: former Drug use: Occasionally Substance use type: marijuana Current gender identity: male Do you feel safe at home: Yes Do you feel safe in your relationship?: Yes Meds Allergies and Home Medications Allergies Allergy/AdvReac Type Severity Reaction Status Date / Time penicillin G Allergy Verified 05/03/21 07:15 Home Medications Medication Instructions Recorded Confirmed Type metoprolol tartrate 25 mg PO HS 05/11/17 05/03/21 History nitroglycerin [Nitrostat] 0.4 mg SUBLINGUAL DAILY 10/11/17 05/03/21 History oxycodone 15 mg PO Q4H PRN PRN 10/11/17 05/03/21 History methadone 10 mg PO TID 03/21/18 05/03/21 History oxycodone 10 mg PO USEASDIRECTD PRN 04/30/19 05/03/21 History rivaroxaban 10 mg tablet 10 mg PO DAILY 07/06/19 05/03/21 History Movantik 12.5 mg PO HS 07/12/19 05/03/21 History Exam Narrative Exam Narrative: 66 yo male that appears older than stated age. Wearing BiPAP and resting comfortably. Const General: cooperative and no acute distress Nutritional Appearance: thin Orientation: other (asleep; wakens readily with verbal stimuli, answers some questions.) [facility] Head: normocephalic and atraumatic Eyes Sclera: sclerae normal Pupils: PERRL Neck Neck: full ROM and no JVD Resp Effort & Inspection: normal respiratory effort Auscultation: clear to auscultation bilaterally and diminished lung sounds Cardio Rate: tachycardic Rhythm: regular rhythm Heart Sounds: S1 normal and S2 normal GI Palpation: soft and nontender Skin General skin exam: no rashes or lesions noted Extrem General: no pedal edema and no calf tenderness Results Labs Result diagrams: 05/03/21 07:20 05/03/21 07:20 Labs: Laboratory Results - last 24 hr 05/03/21 05/03/21 05/03/21 07:20 07:20 07:20 WBC 29.13 H* RBC 4.89 Hgb 14.0 Hct 41.5 MCV 84.9 MCH 28.6 MCHC 33.7 RDW 14.0 Plt Count 409 H MPV 10.1 Immature Gran % 1.0 Neutrophils % 85.7 Lymphocytes % 6.8 Monocytes % 6.3 Eosinophils % 0.0 Basophils % 0.2 Nucleated RBC % 0 Absolute Neutrophils 24.96 H Absolute Lymphocytes 1.98 Absolute Monocytes 1.84 H Absolute Eosinophils 0.00 Absolute Basophils 0.06 RBC Morphology Normal PT 11.0 INR 1.1 APTT 24.7 ABG Sample Site ABG pH ABG pCO2 ABG pO2 ABG HCO3 ABG Total CO2 ABG O2 Saturation ABG Base Excess VBG Lactate Oxygen Liter Flow Sodium 136 Potassium 3.8 Chloride 97 L Carbon Dioxide 24.0 Anion Gap 15.0 H BUN 27 H Creatinine 1.7 H Estimated GFR/1.73 m2 40.78 Glucose 149 H Calcium 9.6 Magnesium 1.9 Total Bilirubin 0.5 AST 84 H ALT 29 Alkaline Phosphatase 99 Troponin I 15.59 H* NT-Pro-B Natriuret Pep Total Protein 8.1 Albumin 3.6 Lipase 39 COVID-19 Source SARS-CoV-2 (PCR) 05/03/21 05/03/21 05/03/21 07:20 09:20 10:22 WBC RBC Hgb Hct MCV MCH MCHC RDW Plt Count MPV Immature Gran % Neutrophils % Lymphocytes % Monocytes % Eosinophils % Basophils % Nucleated RBC % Absolute Neutrophils Absolute Lymphocytes Absolute Monocytes Absolute Eosinophils Absolute Basophils RBC Morphology PT INR APTT ABG Sample Site Right Radial ABG pH 7.50 H ABG pCO2 25 L ABG pO2 75 L ABG HCO3 20 L ABG Total CO2 17 L ABG O2 Saturation 96 ABG Base Excess -4 L VBG Lactate Oxygen Liter Flow 10 with Neb Sodium Potassium Chloride Carbon Dioxide Anion Gap BUN Creatinine Estimated GFR/1.73 m2 Glucose Calcium Magnesium Total Bilirubin AST ALT Alkaline Phosphatase Troponin I NT-Pro-B Natriuret Pep > 99090 H Total Protein Albumin Lipase COVID-19 Source Nasal/Nares SARS-CoV-2 (PCR) Negative 05/03/21 05/03/21 05/03/21 11:35 13:09 14:40 WBC RBC Hgb Hct MCV MCH MCHC RDW Plt Count MPV Immature Gran % Neutrophils % Lymphocytes % Monocytes % Eosinophils % Basophils % Nucleated RBC % Absolute Neutrophils Absolute Lymphocytes Absolute Monocytes Absolute Eosinophils Absolute Basophils RBC Morphology PT INR APTT 29.2 H ABG Sample Site ABG pH ABG pCO2 ABG pO2 ABG HCO3 ABG Total CO2 ABG O2 Saturation ABG Base Excess VBG Lactate 5.2 H* Oxygen Liter Flow Sodium Potassium Chloride Carbon Dioxide Anion Gap BUN Creatinine Estimated GFR/1.73 m2 Glucose Calcium Magnesium Total Bilirubin AST ALT Alkaline Phosphatase Troponin I 12.77 H* NT-Pro-B Natriuret Pep Total Protein Albumin Lipase COVID-19 Source SARS-CoV-2 (PCR) 05/03/21 15:43 WBC RBC Hgb Hct MCV MCH MCHC RDW Plt Count MPV Immature Gran % Neutrophils % Lymphocytes % Monocytes % Eosinophils % Basophils % Nucleated RBC % Absolute Neutrophils Absolute Lymphocytes Absolute Monocytes Absolute Eosinophils Absolute Basophils RBC Morphology PT INR APTT ABG Sample Site ABG pH ABG pCO2 ABG pO2 ABG HCO3 ABG Total CO2 ABG O2 Saturation ABG Base Excess VBG Lactate 4.7 H* Oxygen Liter Flow Sodium Potassium Chloride Carbon Dioxide Anion Gap BUN Creatinine Estimated GFR/1.73 m2 Glucose Calcium Magnesium Total Bilirubin AST ALT Alkaline Phosphatase Troponin I NT-Pro-B Natriuret Pep Total Protein Albumin Lipase COVID-19 Source SARS-CoV-2 (PCR) Last Vital Signs Temp 36.3 C L 05/03/21 14:00 Pulse 111 H 05/03/21 14:33 Resp 38 H 05/03/21 14:50 BP 119/60 05/03/21 14:11 Pulse Ox 96 08/22/21 14:40
[2021-05-03 16:13] LABS: Troponin I 9.67 ng/mL (<0.06)
[2021-05-03 17:52] LABS: Procalcitonin 0.3 ng/mL
[2021-05-03 20:12] LABS: BE 1 mmol/L (-2-3); HCO3 24 mmol/L (22-26); pCO2 27 mmHg (35-45); pH 7.54 (7.35-7.45); pO2 81 mmHg (80-105); sO2 97 % (95-98); tCO2 21 mmol/L (23-27)
[2021-05-03 20:15] LABS: FIO2 21% %; Site Right Radial
[2021-05-03 20:22] LABS: PTT Activated 32.5 sec (21.0-27.5)
[2021-05-03 20:29] LABS: Troponin I 7.87 ng/mL (<0.06)
[2021-05-03] MEDS: Metoprolol 12.5 MG TAB 25 MG PO (21:16)
[2021-05-03] MEDS: Methadone 10 MG TAB PO (21:16)
[2021-05-03 22:07] LABS: Bilirubin Negative (Negative); Blood Moderate (Negative); Clarity Sl Cloudy (Clear); Glucose Negative (Negative); Ketones Negative (Negative); Leukocyte Esterase Moderate (Negative); Nitrite Positive (Negative); Specific Gravity 1.015 (1.005-1.025); Urobilinogen 0.2 EU/dL (Up TO 0.2)
[2021-05-03 22:16] LABS: Bacteria Many HPF (Negative); C & S Indicated? Yes; Crystals Negative HPF (Negative); Epithelial Cells Negative HPF (Negative); Mucus Negative (Negative); RBC 20-50 HPF (0-2); WBC >50 HPF (0-5)
[2021-05-04] VITALS (192 sets, daily range): BP systolic 77–129; BP diastolic 53–112; PULSE 68–106; RESP 0–40; TEMP 36–36.9; O2SAT 90–99
--- NOTE | 2021-05-04 | DI.US_ITS ---
APPROVED REPORT EXAM: Comprehensive 2D, Doppler, and color-flow Echocardiogram Patient Location: In-Patient Room/Bed: [id number] Indications: NSTEMI, COPD Other Information Study Quality: Fair. Technically limited study due to inability to position patient, body habitus, un cooperative patient. Conclusion Technically limited study The left ventricle chamber size is grossly normal, wall thickness normal. Estimated ejection fractio n is less than 20%. There is akinesis of all maxwell in the LAD distribution. The posterior lateral i nferior and posterior maxwell appear hypokinetic Thickened mitral leaflets with mild to moderate mitral regurgitation The aortic valve appears structurally normal without stenosis or regurgitation Normal tricuspid valve, moderate tricuspid regurgitation. Estimated right ventricular systolic press ure is 37 mmHg The right ventricle, right atrium, and left atrium are not adequately visualized Wall motion Left Ventricle The left ventricle is normal size. Left ventricular systolic function is severely decreased. There is normal left ventricular wall thickness. Regional wall motion abnormalities are noted. There is no ve ntricular septal defect visualized. LVEF is 10-14%. Right Ventricle Right ventricle is not well visualized. Right ventricular systolic function could not be assessed. Th e RVSP is 37.6mmHg. Atria Left atrium is not well visualized. Right atrium is not well visualized. The interatrial septum is in tact with no evidence for an atrial septal defect. Aortic Valve The aortic valve is normal in structure. There is no aortic valvular stenosis. No aortic regurgitatio n is present. Mitral Valve Mitral valve leaflets are thickened. No evidence of mitral valve stenosis. Mild to moderate mitral re gurgitation. Tricuspid Valve The tricuspid valve is normal in structure. There is no tricuspid valve stenosis. Moderate tricuspid regurgitation. Pulmonic Valve Pulmonic valve is not well visualized. There is no pulmonic valvular stenosis. There is no pulmonic v alvular regurgitation. Great Vessels The aortic root is normal in size. Aortic arch is not well visualized. Ascending aorta is not well vi sualized. The IVC collapses <50% with inspiration. Pericardium There is no pericardial effusion. 2D Dimensions IVSD d PLAX 1.11 cm M: 0.6-1.2 LVPW d PLAX 1.15 cm M: 0.6 - 1.2 LVID d PLAX 4.06 cm M: 4.2 - 5.8 LVDs 3.80 cm M: 2.5 - 4.0 Ao Root d 2.92 cm M: 3.1 - 3.7 LV EF Teichholz 14.1 % FS 6.15 % LV Diastology E/A Ratio 1.7 MV E Vmax 0.61 (0.4-1.3 m/s) MV A Vmax 0.35 (0.4-1.3 m/s) MV E/A Ratio 1.69 Aortic Valve LVOT Area 3.09 cm2 AoV Area Vmax 1.65 cm2 LVOT Vmax 0.41 m/s AoV Area/ BSA (Vmax) 1.00 cm2/m2 LVOT Mean Joe. 0.31 m/s TREY Mean Joe. 1.45 cm2 LVOT Peak Grad 0.7 mmHg TREY Mean Joe. Index 0.88 cm2/m2 LVOT Mean Grad 0.4 mmHg LVOT VTI 0.075 m LVOT Diam s 1.95 cm AoV Vmax 0.76 m/s Velocity Ratio 0.53 AoV Mean Joe. 0.65 m/s AoV Peak Grad 2.3 mmHg LVOT SV 23.27 mL AoV Mean Grad 1.8 mmHg AoV VTI 0.138 m AoV Area VTI 1.68 cm2 AoV Area/ BSA (VTI) 1.02 cm/m2 Mitral Valve MV DT 215 (160-240 msec) MV PHT 62 msec MV Area PHT 3.52 cm2 Pulmonary Valve PV Vmax 0.80 (0.5-1.5 m/s) RVOT Peak Gr. 2.11 mmHg PV Peak Grad 2.6 mmHg RVOT Mean Gr. 1.10 mmHg PV Mean Grad 1.5 mmHg RVOT VTI 0.115 m PV VTI 0.109 m RVOT Vmax 0.73 m/s Tricuspid Valve TR Peak Grad 29.5 mmHg TR Vmax 2.72 m/s RA Pressure 8.00 mmHg RVSP (TR) 37.6 mmHg
[2021-05-04 03:42] LABS: Abs Immature Grans 0.12 10^3/uL (0.0-0.06); Absolute Basophil Count 0.02 10^3/uL (0.0-0.2); Basophils % 0.1; HCT 31.7 % (40.0-50.0); Immature Grans % 0.6; Lymphocytes % 6.6; MCH 29.1 pg (27.0-33.0); MCHC 34.7 % (32.0-36.0); MCV 83.9 fL (80-95); MPV 10.1 fL (8.0-11.0); Monocytes % 5.5; Neutrophils % 87.2; Nucleated RBC 0 %; Platelet Count 259 10^3/uL (130-400); RBC 3.78 10^6/uL (4.36-5.78); RDW 13.9 % (11.8-14.1); RDW-SD 42.5 fL; WBC 19.64 10^3/uL (4.4-10.8)
[2021-05-04 03:47] LABS: Absolute Monocyte Count 1.08 10^3/uL (0.1-0.8); Absolute Neutrophil Count 17.13 10^3/uL (1.2-6.7)
[2021-05-04 03:55] LABS: PTT Activated 47.4 sec (21.0-27.5)
[2021-05-04 04:42] LABS: ALT 26 U/L (16-63); AST 64 U/L (15-37); Albumin 2.8 g/dL (3.4-5.0); Alkaline Phosphatase 78 U/L (46-116); Anion Gap 10.1 mmol/L (3-11); BUN 32 mg/dL (7-18); Bilirubin, Total 0.4 mg/dL (0.2-1.0); CO2 26.9 mmol/L (21.0-32.0); CREATININE 1.4 mg/dL (0.70-1.30); Calcium 8.5 mg/dL (8.5-10.1); Calculated LDL 120 mg/dL (<100); Chloride 103 mmol/L (98-107); Cholesterol 214 mg/dL (<200); Estimated GFR 51.02 (mL/min/1.73m2); Glucose 125 mg/dL (74-106); HDL Cholesterol 77 mg/dL (40-60); Potassium 3.6 mmol/L (3.5-5.1); Sodium 140 mmol/L (136-145); TSH 3.79 uIU/mL (0.36-3.74); Total Protein 5.8 g/dL (6.4-8.2); Triglyceride 88 mg/dL (<150)
--- NOTE | 2021-05-04 08:52 | INITIAL_ITS ---
- If Service Date Differs Date of service: 05/04/21 Time of Service: 08:52 Care Management Initial Assess REASON FOR HOSPITALIZATION:: Multifocal pneumonia, NSTEMI PAST MEDICAL HISTORY/PAST SURGICAL HISTORY:: ASCVD (arteriosclerotic cardiovascular disease). Chronic low back pain. Colorectal polyps (~07/16/19). COPD (chronic obstructive pulmonary disease). History of chemotherapy (12/12/17). History of colon cancer. stage 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 s/p preOp chemo & XRT. APR and radical cystecyomy/prostectomy. postOp adjuvent chemo. History of prostate cancer. Hx of non-ST elevation myocardial infarction (NSTEMI). pt had cath 2017. x2 vessel Dx. treated w/ meds only. last echo 2017: EF 48%. Port-A-Cath in place. Rectal cancer (02/10/17). Smoker. Stomal prolapse. Surgical History . Colostomy (05/18/17). s/p APR. permanent stoma. EGD - IV Sedation (03/11/17). Prostatectomy / Cystectomy (09/27/17). S/P colonoscopy (~07/16/19). Sigmoidoscopy (03/11/17). Spinal Surgery. laminectomy L4-L5 PREVIOUS FUNCTIONAL STATUS/SOCIAL/FAMILY SUPPORTS:: Resides in [place] with his , Ange. He is independent at baseline in the community. ADVANCE DIRECTIVES:: None on file at [facility], document provided. Has patient been provided with info about the portal/API?: Yes Did the patient sign up for the portal?: No CODE STATUS:: DNR CURRENT HOME/COMMUNITY SERVICES/EQUIPMENT:: Colostomy PRIMARY CARE PHYSICIAN:: Nyla Munoz POTENTIAL DISCHARGE NEEDS:: Follow up appointments, Pulmonology consult, Palliative consult. PATIENT/FAMILY EDUCATION NEEDS:: Review discharge instructions, discuss Ask Me Three. ANTICIPATED BARRIERS TO DISCHARGE:: None identified. TRANSPORTATION:: Via private vehicle with his . PLAN:: Matthew will return home when ready per MD. He met with Dr. Lopez of Palliative Care this morning and changed code status to DNR. He will transport via private vehicle with his , Ange.
[2021-05-04] MEDS: FAMOTIDINE 20 MG/50 ML BAG 200 MG IVPB (09:00)
--- NOTE | 2021-05-04 09:08 | PUCC_ITS ---
General Date of Service Date of service: 05/04/21 Time of Service: 07:45 Reason for Admission to ICU: Troponin elevation Assessment and Plan Assessment and plan (1) NSTEMI (non-ST elevated myocardial infarction): Status: Acute (2) Vomiting: Status: Acute Qualifiers: Nausea presence: with nausea Vomiting Intractability: non-intractable Vomiting type: unspecified Qualified Code(s): R11.2 - Nausea with vomiting, unspecified (3) History of colon cancer: Status: Acute (4) COPD (chronic obstructive pulmonary disease): Status: Chronic Qualifiers: COPD type: unspecified COPD Qualified Code(s): J44.9 - Chronic obstructive pulmonary disease, unspecified (5) Pulmonary embolism: Status: Chronic Qualifiers: Pulmonary embolism type: single subsegmental (without acute cor pulmonale) Qualified Code(s): I26.93 - Single subsegmental pulmonary embolism without acute cor pulmonale (6) Respiratory alkalosis: Status: Acute (7) Leukocytosis: Status: Acute Qualifiers: Leukocytosis type: leukemoid reaction Qualified Code(s): D72.823 - Leukemoid reaction (8) STEPHANIE (acute kidney injury): Status: Acute (9) Malnutrition: Status: Acute Qualifiers: Malnutrition type: unspecified type Qualified Code(s): E46 - Un specified protein-calorie malnutrition (10) Aspiration pneumonia: Status: Acute Assessment and plan: This is a 66-year-old gentleman with a complicated medical history of high stage colon cancer with a colostomy as well as urostomy tubes, COPD, and pulmonary embolism who presented to the emergency department after significant vomiting associated with eating seafood. On his CT abdomen his stomach appears to be full with fluid that is double density is in nature. This could be concerning for bleeding. He was found to have a right-sided pneumonia that is consistent with an aspiration event. His chest CT is also somewhat concerning for septal thickening of which the differential could be volume versus malignancy related (lymphangitic spread). He also presents with some nonspecific EKG changes in association with an impressive troponin bump sent with type I NSTEMI, particularly given his cardiac history. Although he has a complicated clinical history overall he is improving quite significantly. Qualifiers: Aspiration pneumonia type: due to vomit Laterality: right Lung location: unspecified part of lung Qualified Code(s): J69.0 - Pneumonitis due to inhalation of food and vomit Recommendations Pulmonary: Hypoxic respiratory failure, resolved - supplemental O2 to support sats between 88-92% - if he were to worsen, would recommend HFNC to support his oxygen COPD (prior diagnosis in chart) No PFT's in system and no significant emphysema on CT scan - albuterol HFA as needed Cardiac: NSTEMI, likely type I - cardiology has been consulted and recommends TTE, agree with this - on my bedside POCUS I have concerns about a decreased EF (<35%) - transition back to Xarelto after 48 hours of heparin gtt - continue clopidogrel - would benefit from further evaluation once improved clinically CHF - continue home cardiac meds Renal: STEPHANIE, improving - in the setting of hypoxia, seems to be self resolving Respiratory Alkalosis - 1 dose of Diamox given I&O: Intake & Output 05/01/21 05/02/21 05/03/21 05/04/21 23:59 23:59 23:59 23:59 Intake Total 1705.917 / 1705.917 Output Total 1580 / 1580 0 / 0 Balance 125.917 / 125.917 0 / 0 Weight 55.9 kg Daily Fluid Goal:: Even GI Nutrition: Malnutrition - nutrition consult Acute gastritis, resolved - Zofran as needed Double density on Abd CT - NGT placement to assess for blood in stomach given CT findings Date of Last Bowel Movement: 05/03/21 Infectious Disease: Aspiration Pneumonia Appearance and story are consistent with an aspiration in the setting of vomiting. - recommend ceftriaxone 1g - no need for vanc Hematologic: h/o pulmonary embolism - transition back to Xarelto after 48 hours of heparin gtt Leukocytosis Due to aspiration PNA Neurologic: No acute concerns Endocrine: No acute concerns Lines: PIV Prophylaxis: On heparin gtt No indication for GI ppx but on famotidine for vomiting A total of 65 minutes was spent on this patient including bedside assessment with focus, chart review, coordination of care and documentation. Code Status: Resuscitation Status DNR Subjective Critical and life-threatening events over the past 24 hours: This is a 66-year-old gentleman with complex medical history of colon cancer with colostomy and urostomy, COPD, current tobacco use and pulmonary embolism who presented to the ED with persistent vomiting since Tuesday morning. There was no hematemesis noted and believes the vomiting started in the setting of eating seafood. As part of his work-up he received a chest CT that found multi lobar infiltrate and there was a concern for Covid at that time although he has been fully vaccinated. He also had concerns for ACS given his impressive troponin elevation as well as some nonspecific changes on his EKG which prompted a [facility] cardiology consultation. He was given cefepime and vancomycin in the emergency department as well as started on a heparin drip and Plavix loaded. He was also found to be in a respiratory alkalosis) and clear reason was placed on BiPAP. Exam Narrative Exam Narrative: Bedside POCUS: Limited views. EF appears to be decreased. RV normal in size and function. IVC with normal size and collapsability. Small right pleural effusion, not large enough to consider thoracentesis. No left effusion. Const General: no acute distress Nutritional Appearance: cachectic and malnourished [facility] Head: normocephalic Ears: external ears normal and no periauricular adenopathy General nose exam: nasal mucous membranes and turbinates normal Face and sinus: sinuses nontender Mouth: oropharynx normal and moist mucous membranes Teeth and gingiva: dentition normal Eyes General: appearance normal, both eyes and all related structures Pupils: PERRL Neck Neck: normal visual inspection and no lymphadenopathy Chest Chest: normal inspection of the chest Resp Effort & Inspection: normal respiratory effort Auscultation: clear to auscultation bilaterally, no rales, no rhonchi and no wheezes Cardio Rate: regular rate Rhythm: regular rhythm Heart Sounds: S1 normal, S2 normal and no murmurs Pulses: radial pulses present bilaterally GI Inspection: normal to inspection Palpation: soft Skin General skin exam: no rashes or lesions noted Neuro General: patient alert, patient awake and patient oriented x3 Extrem General: no clubbing, cyanosis or edema Psych Mental Status: mental status grossly normal Affect: normal affect Attitude: cooperative Most Recent VS/Results Last Vital Signs Temp 36.1 C L 05/04/21 00:06 Pulse 91 H 05/04/21 04:01 Resp 32 H 05/04/21 05:00 BP 100/78 05/04/21 04:01 Pulse Ox 94 05/04/21 04:50 Laboratory Results - last 24 hr 05/03/21 05/03/21 05/03/21 07:20 09:20 10:22 WBC RBC Hgb Hct MCV MCH MCHC RDW Plt Count MPV Immature Gran % Neutrophils % Lymphocytes % Monocytes % Eosinophils % Basophils % Nucleated RBC % Absolute Neutrophils Absolute Lymphocytes Absolute Monocytes Absolute Eosinophils Absolute Basophils APTT ABG Sample Site Right Radial ABG pH 7.50 H ABG pCO2 25 L ABG pO2 75 L ABG HCO3 20 L ABG Total CO2 17 L ABG O2 Saturation 96 ABG Base Excess -4 L VBG Lactate Oxygen Liter Flow 10 with Neb FiO2 Sodium Potassium Chloride Carbon Dioxide Anion Gap BUN Creatinine Estimated GFR/1.73 m2 Glucose Calcium Total Bilirubin AST ALT Alkaline Phosphatase Troponin I NT-Pro-B Natriuret Pep > 13026 H Total Protein Albumin Triglycerides Total Cholesterol LDL Cholesterol, Calc HDL Cholesterol Procalcitonin TSH Urine Color Urine Clarity Urine pH Ur Specific [place] Urine Protein Urine Ketones Urine Blood Urine Nitrite Urine Bilirubin Urine Urobilinogen Ur Leukocyte Esterase Urine RBC Urine WBC Ur Epithelial Cells Urine Crystals Urine Bacteria Urine Mucus Urine Other Ur Culture Indicated? Urine Glucose COVID-19 Source Nasal/Nares SARS-CoV-2 (PCR) Negative 05/03/21 05/03/21 05/03/21 11:35 13:09 14:40 WBC RBC Hgb Hct MCV MCH MCHC RDW Plt Count MPV Immature Gran % Neutrophils % Lymphocytes % Monocytes % Eosinophils % Basophils % Nucleated RBC % Absolute Neutrophils Absolute Lymphocytes Absolute Monocytes Absolute Eosinophils Absolute Basophils APTT 29.2 H ABG Sample Site ABG pH ABG pCO2 ABG pO2 ABG HCO3 ABG Total CO2 ABG O2 Saturation ABG Base Excess VBG Lactate 5.2 H* Oxygen Liter Flow FiO2 Sodium Potassium Chloride Carbon Dioxide Anion Gap BUN Creatinine Estimated GFR/1.73 m2 Glucose Calcium Total Bilirubin AST ALT Alkaline Phosphatase Troponin I 12.77 H* NT-Pro-B Natriuret Pep Total Protein Albumin Triglycerides Total Cholesterol LDL Cholesterol, Calc HDL Cholesterol Procalcitonin TSH Urine Color Urine Clarity Urine pH Ur Specific [place] Urine Protein Urine Ketones Urine Blood Urine Nitrite Urine Bilirubin Urine Urobilinogen Ur Leukocyte Esterase Urine RBC Urine WBC Ur Epithelial Cells Urine Crystals Urine Bacteria Urine Mucus Urine Other Ur Culture Indicated? Urine Glucose COVID-19 Source SARS-CoV-2 (PCR) 05/03/21 05/03/21 05/03/21 15:43 15:43 15:43 WBC RBC Hgb Hct MCV MCH MCHC RDW Plt Count MPV Immature Gran % Neutrophils % Lymphocytes % Monocytes % Eosinophils % Basophils % Nucleated RBC % Absolute Neutrophils Absolute Lymphocytes Absolute Monocytes Absolute Eosinophils Absolute Basophils APTT ABG Sample Site ABG pH ABG pCO2 ABG pO2 ABG HCO3 ABG Total CO2 ABG O2 Saturation ABG Base Excess VBG Lactate 4.7 H* Oxygen Liter Flow FiO2 Sodium Potassium Chloride Carbon Dioxide Anion Gap BUN Creatinine Estimated GFR/1.73 m2 Glucose Calcium Total Bilirubin AST ALT Alkaline Phosphatase Troponin I 9.67 H* NT-Pro-B Natriuret Pep Total Protein Albumin Triglycerides Total Cholesterol LDL Cholesterol, Calc HDL Cholesterol Procalcitonin 0.3 TSH Urine Color Urine Clarity Urine pH Ur Specific [place] Urine Protein Urine Ketones Urine Blood Urine Nitrite Urine Bilirubin Urine Urobilinogen Ur Leukocyte Esterase Urine RBC Urine WBC Ur Epithelial Cells Urine Crystals Urine Bacteria Urine Mucus Urine Other Ur Culture Indicated? Urine Glucose COVID-19 Source SARS-CoV-2 (PCR) 05/03/21 05/03/21 05/03/21 19:53 19:53 20:10 WBC RBC Hgb Hct MCV MCH MCHC RDW Plt Count MPV Immature Gran % Neutrophils % Lymphocytes % Monocytes % Eosinophils % Basophils % Nucleated RBC % Absolute Neutrophils Absolute Lymphocytes Absolute Monocytes Absolute Eosinophils Absolute Basophils APTT 32.5 H ABG Sample Site Right Radial ABG pH 7.54 H ABG pCO2 27 L ABG pO2 81 ABG HCO3 24 ABG Total CO2 21 L ABG O2 Saturation 97 ABG Base Excess 1 VBG Lactate Oxygen Liter Flow 12/6 FiO2 21% Sodium Potassium Chloride Carbon Dioxide Anion Gap BUN Creatinine Estimated GFR/1.73 m2 Glucose Calcium Total Bilirubin AST ALT Alkaline Phosphatase Troponin I 7.87 H* NT-Pro-B Natriuret Pep Total Protein Albumin Triglycerides Total Cholesterol LDL Cholesterol, Calc HDL Cholesterol Procalcitonin TSH Urine Color Urine Clarity Urine pH Ur Specific [place] Urine Protein Urine Ketones Urine Blood Urine Nitrite Urine Bilirubin Urine Urobilinogen Ur Leukocyte Esterase Urine RBC Urine WBC Ur Epithelial Cells Urine Crystals Urine Bacteria Urine Mucus Urine Other Ur Culture Indicated? Urine Glucose COVID-19 Source SARS-CoV-2 (PCR) 05/03/21 05/04/21 05/04/21 21:44 03:32 03:32 WBC RBC Hgb Hct MCV MCH MCHC RDW Plt Count MPV Immature Gran % Neutrophils % Lymphocytes % Monocytes % Eosinophils % Basophils % Nucleated RBC % Absolute Neutrophils Absolute Lymphocytes Absolute Monocytes Absolute Eosinophils Absolute Basophils APTT 47.4 H D ABG Sample Site ABG pH ABG pCO2 ABG pO2 ABG HCO3 ABG Total CO2 ABG O2 Saturation ABG Base Excess VBG Lactate Oxygen Liter Flow FiO2 Sodium 140 Potassium 3.6 Chloride 103 Carbon Dioxide 26.9 Anion Gap 10.1 BUN 32 H Creatinine 1.4 H Estimated GFR/1.73 m2 51.02 Glucose 125 H Calcium 8.5 Total Bilirubin 0.4 AST 64 H ALT 26 Alkaline Phosphatase 78 Troponin I NT-Pro-B Natriuret Pep Total Protein 5.8 L Albumin 2.8 L Triglycerides 88 Total Cholesterol 214 H LDL Cholesterol, Calc 120 H HDL Cholesterol 77 Procalcitonin TSH 3.79 H Urine Color Yellow Urine Clarity Sl Cloudy Urine pH 7.0 Ur Specific [place] 1.015 Urine Protein 30 H Urine Ketones Negative Urine Blood Moderate H Urine Nitrite Positive H Urine Bilirubin Negative Urine Urobilinogen 0.2 Ur Leukocyte Esterase Moderate H Urine RBC 20-50 H Urine WBC >50 H Ur Epithelial Cells Negative Urine Crystals Negative Urine Bacteria Many Urine Mucus Negative Urine Other Many Renal Ur Culture Indicated? Yes Urine Glucose Negative COVID-19 Source SARS-CoV-2 (PCR) 05/04/21 03:32 WBC 19.64 H D RBC 3.78 L Hgb 11.0 L D Hct 31.7 L D MCV 83.9 MCH 29.1 MCHC 34.7 RDW 13.9 Plt Count 259 D MPV 10.1 Immature Gran % 0.6 Neutrophils % 87.2 Lymphocytes % 6.6 Monocytes % 5.5 Eosinophils % 0.0 Basophils % 0.1 Nucleated RBC % 0 Absolute Neutrophils 17.13 H Absolute Lymphocytes 1.30 Absolute Monocytes 1.08 H Absolute Eosinophils 0.00 Absolute Basophils 0.02 APTT ABG Sample Site ABG pH ABG pCO2 ABG pO2 ABG HCO3 ABG Total CO2 ABG O2 Saturation ABG Base Excess VBG Lactate Oxygen Liter Flow FiO2 Sodium Potassium Chloride Carbon Dioxide Anion Gap BUN Creatinine Estimated GFR/1.73 m2 Glucose Calcium Total Bilirubin AST ALT Alkaline Phosphatase Troponin I NT-Pro-B Natriuret Pep Total Protein Albumin Triglycerides Total Cholesterol LDL Cholesterol, Calc HDL Cholesterol Procalcitonin TSH Urine Color Urine Clarity Urine pH Ur Specific [place] Urine Protein Urine Ketones Urine Blood Urine Nitrite Urine Bilirubin Urine Urobilinogen Ur Leukocyte Esterase Urine RBC Urine WBC Ur Epithelial Cells Urine Crystals Urine Bacteria Urine Mucus Urine Other Ur Culture Indicated? Urine Glucose COVID-19 Source SARS-CoV-2 (PCR) Review of Systems All systems reviewed & are unremarkable except as noted in HPI and below Constitutional Constitutional: Reports fatigue, Reports malaise and Reports weight loss Cardiovascular Cardiovascular: Denies chest pain and Reports dyspnea on exertion Respiratory Respiratory: Denies chest congestion, Denies cough, Denies excessive phlegm production and Reports dyspnea on exertion Gastrointestinal Gastrointestinal: Reports melena, Reports change in stool character, Denies nausea, Denies vomiting and Denies hematemesis Endocrine Endocrine: Reports fatigue
--- NOTE | 2021-05-04 09:31 | CCONE_ITS ---
Date of service: 05/04/21 Time of Service: 09:31 Assessment and Plan Assessment and plan (1) NSTEMI (non-ST elevated myocardial infarction): Status: Acute (2) Multifocal pneumonia: Status: Acute (3) History of colon cancer: Status: Acute (4) COPD (chronic obstructive pulmonary disease): Status: Chronic Assessment and plan: Patient presents with 2 days of refractory vomiting, now with findings of pneumonia and non-ST elevation myocardial infarction. I would be concerned that he aspirated related to all the vomiting. Overall he seems to have improved since admission and his troponin is downtrending. An echocardiogram will be performed today and compared to that from 2017 at [facility]. His pneumonia should be treated. When all of this has resolved depending on echo results and his course would consider either there transferred for cardiac catheterization or a pharmacologic myocardial perfusion imaging study to look for residual ischemia. As noted, his right coronary is occluded and elsewhere he had mild to moderate disease Thank you for the opportunity to participate in the care of this patient History of Present Illness History of Present Illness Chief Complaint: Vomiting Narrative: This is an unfortunate 66-year-old man who presented to the hospital with approximately 48 hours of refractory vomiting associated chest and abdominal pain, and difficulty breathing. He has a history of rectal cancer and is status post resection, along with a cystectomy and prostatectomy. He has multiple ostomies including an ileal conduit. Reportedly he was compensated until 2 days prior to admission when he ate a seafood salad. Almost immediately thereafter he began to vomit and then could not keep anything down. He came to the hospital where multiple abnormalities were found. His chest x-ray showed a right-sided infiltrate. This was confirmed on CT of the chest which showed as well a right pleural effusion. The left lung was relatively normal on imaging. He was found to have an elevated white count of 29,000, and also an elevated troponin at 15.59 which is subsequently gradually to 7.87. Patient reports that his biggest problem is chronic pain which is worse since his primary care provider reduced his pain medication. Patient is not currently experiencing chest discomfort or shortness of breath. He is tolerating servando micky. He does have a history of coronary artery disease and apparently suffered a non-ST elevation myocardial infarction March 2017 when he was hospitalized at [facility]. An echocardiogram at that time showed an ejection fraction of approximately 45% with wall motion abnormalities in the right coronary artery distribution. He underwent cardiac catheterization. This showed a 20% ostial left main stenosis. The LAD had an ostial 40 and mid 45% stenosis. The first diagonal had a 50% stenosis. There were no significant obstructive lesions in the circumflex. The right coronary was occluded and filled by collaterals from the circumflex and LAD. He was treated medically EKG here shows low voltage poor R wave progression probable old anterior wall myocardial infarction, no definitive ST elevation or depression The patient was on Xarelto prior to admission, reportedly for pulmonary embolus. This is been held and he has been on heparin Consults Consult date: 05/04/21 Requesting physician: Bert Canela Review of Systems Cardiovascular Cardiovascular: Reports chest pain, Reports chest pain at rest, Reports dyspnea and Reports dyspnea on exertion Respiratory Respiratory: Reports dyspnea and Reports dyspnea on exertion Gastrointestinal Gastrointestinal: Reports as per HPI, Reports abdominal pain and Reports vomiting [facility] Medical History ASCVD (arteriosclerotic cardiovascular disease) Chronic low back pain Colorectal polyps (~07/16/19) COPD (chronic obstructive pulmonary disease) History of chemotherapy (12/12/17) History of colon cancer stage 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 s/p preOp chemo & XRT APR and radical cystecyomy/prostectomy postOp adjuvent chemo History of prostate cancer Hx of non-ST elevation myocardial infarction (NSTEMI) pt had cath 2017. x2 vessel Dx. treated w/ meds only last echo 2017: EF 48% Port-A-Cath in place Rectal cancer (02/10/17) Smoker Stomal prolapse Surgical History Colostomy (05/18/17) s/p APR. permanent stoma. EGD - IV Sedation (03/11/17) Prostatectomy / Cystectomy (09/27/17) S/P colonoscopy (~07/16/19) Sigmoidoscopy (03/11/17) Spinal Surgery laminectomy L4-L5 Family History Other Cancer Emphysema lung Heart disease Social History Smoking/Tobacco Use Status: Current every day Tobacco Type: cigarettes Smoking risk assessment performed?: Yes Alcohol Intake: former Drug use: Occasionally Substance use type: marijuana Current gender identity: male Do you feel safe at home: Yes Do you feel safe in your relationship?: Yes Exam Narrative Exam Narrative: Cachectic chronically ill-appearing man no acute distress looks much older than stated age Neck Other: No appreciable neck vein distention carotid pulsations are grossly normal I hear no bruits Resp Effort & Inspection: normal respiratory effort Other: Decreased breath sounds right greater than left Cardio Other: Heart is regular no murmur or gallop appreciated GI Other: Multiple ostomies, otherwise not examined Extrem Other: No peripheral edema Results Last Vital Signs Temp 36.1 C L 05/04/21 00:06 Pulse 91 H 05/04/21 04:01 Resp 32 H 05/04/21 05:00 BP 100/78 05/04/21 04:01 Pulse Ox 94 05/04/21 04:50 Labs Result diagrams: 05/04/21 03:32 05/04/21 03:32 Labs: Laboratory Results - last 24 hr 05/03/21 05/03/21 05/03/21 09:20 10:22 11:35 WBC RBC Hgb Hct MCV MCH MCHC RDW Plt Count MPV Immature Gran % Neutrophils % Lymphocytes % Monocytes % Eosinophils % Basophils % Nucleated RBC % Absolute Neutrophils Absolute Lymphocytes Absolute Monocytes Absolute Eosinophils Absolute Basophils APTT ABG Sample Site Right Radial ABG pH 7.50 H ABG pCO2 25 L ABG pO2 75 L ABG HCO3 20 L ABG Total CO2 17 L ABG O2 Saturation 96 ABG Base Excess -4 L VBG Lactate Oxygen Liter Flow 10 with Neb FiO2 Sodium Potassium Chloride Carbon Dioxide Anion Gap BUN Creatinine Estimated GFR/1.73 m2 Glucose Calcium Total Bilirubin AST ALT Alkaline Phosphatase Troponin I 12.77 H* Total Protein Albumin Triglycerides Total Cholesterol LDL Cholesterol, Calc HDL Cholesterol Procalcitonin TSH Urine Color Urine Clarity Urine pH Ur Specific [place] Urine Protein Urine Ketones Urine Blood Urine Nitrite Urine Bilirubin Urine Urobilinogen Ur Leukocyte Esterase Urine RBC Urine WBC Ur Epithelial Cells Urine Crystals Urine Bacteria Urine Mucus Urine Other Ur Culture Indicated? Urine Glucose SARS-CoV-2 (PCR) Negative 05/03/21 05/03/21 05/03/21 13:09 14:40 15:43 WBC RBC Hgb Hct MCV MCH MCHC RDW Plt Count MPV Immature Gran % Neutrophils % Lymphocytes % Monocytes % Eosinophils % Basophils % Nucleated RBC % Absolute Neutrophils Absolute Lymphocytes Absolute Monocytes Absolute Eosinophils Absolute Basophils APTT 29.2 H ABG Sample Site ABG pH ABG pCO2 ABG pO2 ABG HCO3 ABG Total CO2 ABG O2 Saturation ABG Base Excess VBG Lactate 5.2 H* Oxygen Liter Flow FiO2 Sodium Potassium Chloride Carbon Dioxide Anion Gap BUN Creatinine Estimated GFR/1.73 m2 Glucose Calcium Total Bilirubin AST ALT Alkaline Phosphatase Troponin I 9.67 H* Total Protein Albumin Triglycerides Total Cholesterol LDL Cholesterol, Calc HDL Cholesterol Procalcitonin TSH Urine Color Urine Clarity Urine pH Ur Specific [place] Urine Protein Urine Ketones Urine Blood Urine Nitrite Urine Bilirubin Urine Urobilinogen Ur Leukocyte Esterase Urine RBC Urine WBC Ur Epithelial Cells Urine Crystals Urine Bacteria Urine Mucus Urine Other Ur Culture Indicated? Urine Glucose SARS-CoV-2 (PCR) 05/03/21 05/03/21 05/03/21 15:43 15:43 19:53 WBC RBC Hgb Hct MCV MCH MCHC RDW Plt Count MPV Immature Gran % Neutrophils % Lymphocytes % Monocytes % Eosinophils % Basophils % Nucleated RBC % Absolute Neutrophils Absolute Lymphocytes Absolute Monocytes Absolute Eosinophils Absolute Basophils APTT ABG Sample Site ABG pH ABG pCO2 ABG pO2 ABG HCO3 ABG Total CO2 ABG O2 Saturation ABG Base Excess VBG Lactate 4.7 H* Oxygen Liter Flow FiO2 Sodium Potassium Chloride Carbon Dioxide Anion Gap BUN Creatinine Estimated GFR/1.73 m2 Glucose Calcium Total Bilirubin AST ALT Alkaline Phosphatase Troponin I 7.87 H* Total Protein Albumin Triglycerides Total Cholesterol LDL Cholesterol, Calc HDL Cholesterol Procalcitonin 0.3 TSH Urine Color Urine Clarity Urine pH Ur Specific [place] Urine Protein Urine Ketones Urine Blood Urine Nitrite Urine Bilirubin Urine Urobilinogen Ur Leukocyte Esterase Urine RBC Urine WBC Ur Epithelial Cells Urine Crystals Urine Bacteria Urine Mucus Urine Other Ur Culture Indicated? Urine Glucose SARS-CoV-2 (PCR) 05/03/21 05/03/21 05/03/21 19:53 20:10 21:44 WBC RBC Hgb Hct MCV MCH MCHC RDW Plt Count MPV Immature Gran % Neutrophils % Lymphocytes % Monocytes % Eosinophils % Basophils % Nucleated RBC % Absolute Neutrophils Absolute Lymphocytes Absolute Monocytes Absolute Eosinophils Absolute Basophils APTT 32.5 H ABG Sample Site Right Radial ABG pH 7.54 H ABG pCO2 27 L ABG pO2 81 ABG HCO3 24 ABG Total CO2 21 L ABG O2 Saturation 97 ABG Base Excess 1 VBG Lactate Oxygen Liter Flow 12/6 FiO2 21% Sodium Potassium Chloride Carbon Dioxide Anion Gap BUN Creatinine Estimated GFR/1.73 m2 Glucose Calcium Total Bilirubin AST ALT Alkaline Phosphatase Troponin I Total Protein Albumin Triglycerides Total Cholesterol LDL Cholesterol, Calc HDL Cholesterol Procalcitonin TSH Urine Color Yellow Urine Clarity Sl Cloudy Urine pH 7.0 Ur Specific [place] 1.015 Urine Protein 30 H Urine Ketones Negative Urine Blood Moderate H Urine Nitrite Positive H Urine Bilirubin Negative Urine Urobilinogen 0.2 Ur Leukocyte Esterase Moderate H Urine RBC 20-50 H Urine WBC >50 H Ur Epithelial Cells Negative Urine Crystals Negative Urine Bacteria Many Urine Mucus Negative Urine Other Many Renal Ur Culture Indicated? Yes Urine Glucose Negative SARS-CoV-2 (PCR) 05/04/21 05/04/21 05/04/21 03:32 03:32 03:32 WBC 19.64 H D RBC 3.78 L Hgb 11.0 L D Hct 31.7 L D MCV 83.9 MCH 29.1 MCHC 34.7 RDW 13.9 Plt Count 259 D MPV 10.1 Immature Gran % 0.6 Neutrophils % 87.2 Lymphocytes % 6.6 Monocytes % 5.5 Eosinophils % 0.0 Basophils % 0.1 Nucleated RBC % 0 Absolute Neutrophils 17.13 H Absolute Lymphocytes 1.30 Absolute Monocytes 1.08 H Absolute Eosinophils 0.00 Absolute Basophils 0.02 APTT 47.4 H D ABG Sample Site ABG pH ABG pCO2 ABG pO2 ABG HCO3 ABG Total CO2 ABG O2 Saturation ABG Base Excess VBG Lactate Oxygen Liter Flow FiO2 Sodium 140 Potassium 3.6 Chloride 103 Carbon Dioxide 26.9 Anion Gap 10.1 BUN 32 H Creatinine 1.4 H Estimated GFR/1.73 m2 51.02 Glucose 125 H Calcium 8.5 Total Bilirubin 0.4 AST 64 H ALT 26 Alkaline Phosphatase 78 Troponin I Total Protein 5.8 L Albumin 2.8 L Triglycerides 88 Total Cholesterol 214 H LDL Cholesterol, Calc 120 H HDL Cholesterol 77 Procalcitonin TSH 3.79 H Urine Color Urine Clarity Urine pH Ur Specific [place] Urine Protein Urine Ketones Urine Blood Urine Nitrite Urine Bilirubin Urine Urobilinogen Ur Leukocyte Esterase Urine RBC Urine WBC Ur Epithelial Cells Urine Crystals Urine Bacteria Urine Mucus Urine Other Ur Culture Indicated? Urine Glucose SARS-CoV-2 (PCR)
[2021-05-04] MEDS: Methadone 10 MG TAB PO ×3 (09:32→19:50)
[2021-05-04] MEDS: Clopidogrel 75 MG TAB PO (09:32)
[2021-05-04] MEDS: Aspirin 81 MG CHEW PO (09:32)
[2021-05-04] MEDS: Nicotine 14 MG/24 HR PATCH TD (09:33)
--- NOTE | 2021-05-04 11:13 | PHACLINREV_ITS ---
Pharmacy Admission Review - Admission Clinical Review (Last Reviewed 05/04/21 @ 09:40 by Jenny Graves MD) Aspiration pneumonia (Acute) Malnutrition (Acute) STEPHANIE (acute kidney injury) (Acute) Leukocytosis (Acute) Respiratory alkalosis (Acute) NSTEMI (non-ST elevated myocardial infarction) (Acute) Vomiting (Acute) Multifocal pneumonia (Acute) History of colon cancer (Acute) Smoker (Acute) ASCVD (arteriosclerotic cardiovascular disease) (Acute) penicillin G Allergy (Verified 05/03/21 07:15) Resuscitation Status DNR Height 5 ft 7 in Weight 55.9 kg - Renal Dosing Renal Dosing: BUN 32 mg/dL (7-18) H 05/04/21 03:32 Creatinine 1.4 mg/dL (0.70-1.30) H 05/04/21 03:32 Medications needing adjustments: Reviewed (Crcl ~42 mL/min current meds okay) - Anticoagulation Anticoagulation: Hgb 11.0 g/dL (13.5-17.5) L D 05/04/21 03:32 Hct 31.7 % (40.0-50.0) L D 05/04/21 03:32 Plt Count 259 10^3/uL (130-400) D 05/04/21 03:32 INR 1.1 (0.9-1.1) 05/03/21 07:20 Creatinine 1.4 mg/dL (0.70-1.30) H 05/04/21 03:32 Therapeutic Anticoagulation: Reviewed Medications: Heparin (heparin drip currently running) - Opiate Usage Evaluate Pain Scale/Pains Meds: Intervened (Pt's own naloxegol ordered but has not been brought in for use yet.) Scheduled Bowel Reg ordered if on Opiates?: Yes (but currently unavailable) - Relevant Labs Sodium 140 mmol/L (136-145) 05/04/21 03:32 Potassium 3.6 mmol/L (3.5-5.1) 05/04/21 03:32 Chloride 103 mmol/L (98-107) 05/04/21 03:32 Magnesium 1.9 mg/dL (1.8-2.4) 05/03/21 07:20 Electrolytes, C-Reactive P, ESR: Reviewed - DM Control DM Control: Glucose 125 mg/dL (74-106) H 05/04/21 03:32 Insulin Dosing: N/A - Heart Failure/SC Heart Failure/SC: Troponin I 7.87 ng/mL (<0.06) H* 05/03/21 19:53 NT-Pro-B Natriuret Pep > 21522 pg/mL (<300) H 05/03/21 07:20 EF%, DESMOND's, B-Blockers, Diuretics: Reviewed - BP Control BP Control: Blood Pressure [Right Arm] 120/89 Blood Pressure [Right Arm] 100/78 Blood Pressure [Right Arm] 92/66 Blood Pressure 113/74 Blood Pressure 120/89 Blood Pressure 104/59 Blood Pressure 100/78 Blood Pressure 101/80 Blood Pressure 92/66 If elevated: Reviewed (BP was elevated on admission, has been low to normal so far today) - Qtc Review If Elevated: Reviewed (QTc was elevated on admission, QTc was 457 on most recent EKG) - IV to PO Switch IV Medications: Intervened (Will ask provider about changing famotidine from IV to PO as pt is taking other PO meds.) - Home Meds Home Med List reviewed: Intervened (Per [facility] pt no longer on the 15 mg oxycodone, recently picked up methadone and oxycodone 10 mg tabs. Fixed this on pts home med list. Multiple [employer] depressants.) Relevent Home Meds Not ordered & why?: nitroglycerin (PRN), rivaroxaban (has heparin drip ordered) - Current meds Current Medication Order Review: Intervened (Has oxycodone 15 mg tabs ordered, will mention update in home med list to provider to see if he wants to adjust this. Discontinued DI meds as they had already been given.) - Comments Comments/Follow Ups: Watch BP, SCr, labs and for med changes (possible need of additional BM meds, IV to PO, possible renal dose adjustments).
--- NOTE | 2021-05-04 11:16 | W.PM.PROGNOT ---
Date of Service Date of service: 05/04/21 Time of Service: 11:16 Assessment and Plan Assessment and plan (1) Aspiration pneumonia: Status: Acute Assessment and plan: Significant, multiple days of emesis after eating seafood. Pulmonary medicine following. Ceftriaxone 1 g IV Q 24H. Qualifiers: Aspiration pneumonia type: due to vomit Laterality: right Lung location: unspecified part of lung Qualified Code(s): J69.0 - Pneumonitis due to inhalation of food and vomit (2) Respiratory alkalosis: Status: Acute Assessment and plan: Gave diamox 500mg IV x 1. (3) STEPHANIE (acute kidney injury): Status: Acute Assessment and plan: Creatinine improved from 1.7 to 1.4 Oral hydration. Monitor. (4) NSTEMI (non-ST elevated myocardial infarction): Status: Acute Assessment and plan: Troponin peaked at 15.59. Decreased to 7.87. No c/o angina. Cont ASA, Plavix, metoprolol (5) COPD (chronic obstructive pulmonary disease): Status: Chronic Assessment and plan: PRN levalbuterol Qualifiers: COPD type: unspecified COPD Qualified Code(s): J44.9 - Chronic obstructive pulmonary disease, unspecified (6) ASCVD (arteriosclerotic cardiovascular disease): Status: Acute Assessment and plan: As per NSTEMI (7) History of colon cancer: Status: Acute Assessment and plan: s/p resection with colostomy. Cachectic. Palliative consulted. Now a DNR/DNI. Subjective Subjective Patient reports: no new complaints, feels better and afebrile; denies nausea and vomiting Interval history since last seen: No abd pain. Decreased stool output. NG output tested for blood and was negative. Exam Narrative Exam Narrative: Frail, thin male asleep in bed. Const General: cooperative and no acute distress Nutritional Appearance: underweight Orientation: oriented to person and oriented to place Eyes Sclera: sclerae normal Pupils: PERRL Resp Effort & Inspection: normal respiratory effort Auscultation: clear to auscultation bilaterally Cardio Rate: regular rate Rhythm: regular rhythm Heart Sounds: S1 normal and S2 normal GI Inspection: other (colostomy intact. ) Palpation: soft and nontender Skin General skin exam: no rashes or lesions noted Extrem General: no pedal edema and no calf tenderness Objective Last Vital Signs Temp 36.9 C 05/04/21 08:00 Pulse 100 H 05/04/21 08:01 Resp 17 05/04/21 09:30 BP 113/74 05/04/21 08:01 Pulse Ox 97 05/04/21 09:40 Laboratory Results - last 24 hr 05/03/21 05/03/21 05/03/21 11:35 13:09 14:40 WBC RBC Hgb Hct MCV MCH MCHC RDW Plt Count MPV Immature Gran % Neutrophils % Lymphocytes % Monocytes % Eosinophils % Basophils % Nucleated RBC % Absolute Neutrophils Absolute Lymphocytes Absolute Monocytes Absolute Eosinophils Absolute Basophils APTT 29.2 H ABG Sample Site ABG pH ABG pCO2 ABG pO2 ABG HCO3 ABG Total CO2 ABG O2 Saturation ABG Base Excess VBG Lactate 5.2 H* Oxygen Liter Flow FiO2 Sodium Potassium Chloride Carbon Dioxide Anion Gap BUN Creatinine Estimated GFR/1.73 m2 Glucose Calcium Total Bilirubin AST ALT Alkaline Phosphatase Troponin I 12.77 H* Total Protein Albumin Triglycerides Total Cholesterol LDL Cholesterol, Calc HDL Cholesterol Procalcitonin TSH Urine Color Urine Clarity Urine pH Ur Specific [place] Urine Protein Urine Ketones Urine Blood Urine Nitrite Urine Bilirubin Urine Urobilinogen Ur Leukocyte Esterase Urine RBC Urine WBC Ur Epithelial Cells Urine Crystals Urine Bacteria Urine Mucus Urine Other Ur Culture Indicated? Urine Glucose 05/03/21 05/03/21 05/03/21 15:43 15:43 15:43 WBC RBC Hgb Hct MCV MCH MCHC RDW Plt Count MPV Immature Gran % Neutrophils % Lymphocytes % Monocytes % Eosinophils % Basophils % Nucleated RBC % Absolute Neutrophils Absolute Lymphocytes Absolute Monocytes Absolute Eosinophils Absolute Basophils APTT ABG Sample Site ABG pH ABG pCO2 ABG pO2 ABG HCO3 ABG Total CO2 ABG O2 Saturation ABG Base Excess VBG Lactate 4.7 H* Oxygen Liter Flow FiO2 Sodium Potassium Chloride Carbon Dioxide Anion Gap BUN Creatinine Estimated GFR/1.73 m2 Glucose Calcium Total Bilirubin AST ALT Alkaline Phosphatase Troponin I 9.67 H* Total Protein Albumin Triglycerides Total Cholesterol LDL Cholesterol, Calc HDL Cholesterol Procalcitonin 0.3 TSH Urine Color Urine Clarity Urine pH Ur Specific [place] Urine Protein Urine Ketones Urine Blood Urine Nitrite Urine Bilirubin Urine Urobilinogen Ur Leukocyte Esterase Urine RBC Urine WBC Ur Epithelial Cells Urine Crystals Urine Bacteria Urine Mucus Urine Other Ur Culture Indicated? Urine Glucose 05/03/21 05/03/21 05/03/21 19:53 19:53 20:10 WBC RBC Hgb Hct MCV MCH MCHC RDW Plt Count MPV Immature Gran % Neutrophils % Lymphocytes % Monocytes % Eosinophils % Basophils % Nucleated RBC % Absolute Neutrophils Absolute Lymphocytes Absolute Monocytes Absolute Eosinophils Absolute Basophils APTT 32.5 H ABG Sample Site Right Radial ABG pH 7.54 H ABG pCO2 27 L ABG pO2 81 ABG HCO3 24 ABG Total CO2 21 L ABG O2 Saturation 97 ABG Base Excess 1 VBG Lactate Oxygen Liter Flow 12/6 FiO2 21% Sodium Potassium Chloride Carbon Dioxide Anion Gap BUN Creatinine Estimated GFR/1.73 m2 Glucose Calcium Total Bilirubin AST ALT Alkaline Phosphatase Troponin I 7.87 H* Total Protein Albumin Triglycerides Total Cholesterol LDL Cholesterol, Calc HDL Cholesterol Procalcitonin TSH Urine Color Urine Clarity Urine pH Ur Specific [place] Urine Protein Urine Ketones Urine Blood Urine Nitrite Urine Bilirubin Urine Urobilinogen Ur Leukocyte Esterase Urine RBC Urine WBC Ur Epithelial Cells Urine Crystals Urine Bacteria Urine Mucus Urine Other Ur Culture Indicated? Urine Glucose 05/03/21 05/04/21 05/04/21 21:44 03:32 03:32 WBC RBC Hgb Hct MCV MCH MCHC RDW Plt Count MPV Immature Gran % Neutrophils % Lymphocytes % Monocytes % Eosinophils % Basophils % Nucleated RBC % Absolute Neutrophils Absolute Lymphocytes Absolute Monocytes Absolute Eosinophils Absolute Basophils APTT 47.4 H D ABG Sample Site ABG pH ABG pCO2 ABG pO2 ABG HCO3 ABG Total CO2 ABG O2 Saturation ABG Base Excess VBG Lactate Oxygen Liter Flow FiO2 Sodium 140 Potassium 3.6 Chloride 103 Carbon Dioxide 26.9 Anion Gap 10.1 BUN 32 H Creatinine 1.4 H Estimated GFR/1.73 m2 51.02 Glucose 125 H Calcium 8.5 Total Bilirubin 0.4 AST 64 H ALT 26 Alkaline Phosphatase 78 Troponin I Total Protein 5.8 L Albumin 2.8 L Triglycerides 88 Total Cholesterol 214 H LDL Cholesterol, Calc 120 H HDL Cholesterol 77 Procalcitonin TSH 3.79 H Urine Color Yellow Urine Clarity Sl Cloudy Urine pH 7.0 Ur Specific [place] 1.015 Urine Protein 30 H Urine Ketones Negative Urine Blood Moderate H Urine Nitrite Positive H Urine Bilirubin Negative Urine Urobilinogen 0.2 Ur Leukocyte Esterase Moderate H Urine RBC 20-50 H Urine WBC >50 H Ur Epithelial Cells Negative Urine Crystals Negative Urine Bacteria Many Urine Mucus Negative Urine Other Many Renal Ur Culture Indicated? Yes Urine Glucose Negative 05/04/21 03:32 WBC 19.64 H D RBC 3.78 L Hgb 11.0 L D Hct 31.7 L D MCV 83.9 MCH 29.1 MCHC 34.7 RDW 13.9 Plt Count 259 D MPV 10.1 Immature Gran % 0.6 Neutrophils % 87.2 Lymphocytes % 6.6 Monocytes % 5.5 Eosinophils % 0.0 Basophils % 0.1 Nucleated RBC % 0 Absolute Neutrophils 17.13 H Absolute Lymphocytes 1.30 Absolute Monocytes 1.08 H Absolute Eosinophils 0.00 Absolute Basophils 0.02 APTT ABG Sample Site ABG pH ABG pCO2 ABG pO2 ABG HCO3 ABG Total CO2 ABG O2 Saturation ABG Base Excess VBG Lactate Oxygen Liter Flow FiO2 Sodium Potassium Chloride Carbon Dioxide Anion Gap BUN Creatinine Estimated GFR/1.73 m2 Glucose Calcium Total Bilirubin AST ALT Alkaline Phosphatase Troponin I Total Protein Albumin Triglycerides Total Cholesterol LDL Cholesterol, Calc HDL Cholesterol Procalcitonin TSH Urine Color Urine Clarity Urine pH Ur Specific [place] Urine Protein Urine Ketones Urine Blood Urine Nitrite Urine Bilirubin Urine Urobilinogen Ur Leukocyte Esterase Urine RBC Urine WBC Ur Epithelial Cells Urine Crystals Urine Bacteria Urine Mucus Urine Other Ur Culture Indicated? Urine Glucose
[2021-05-04] MEDS: Methylnaltrexone 12 MG/0.6 ML VIAL 4 MG SC (13:33)
--- NOTE | 2021-05-04 14:00 | W.PALLCONSUL ---
Date of service: 05/04/21 Time of Service: 07:00 History of Present Illness History of Present Illness Chief Complaint: weight loss, sob Narrative: From H and P: History of Present Illness Chief Complaint: Chest Pain, Emesis Narrative: This is a 66 yo male with a PMH of colon cancer with colostomy and urostomy, COPD, current tobacco user, ASCVD, pulmonary embolism. He presented to ED with complaint of chest pain that he relates to persistent vomiting since Tuesday morning at 2 AM. He endorsed the inability to keep anything down currently, including water or servando micky. Initially denied difficulty breathing. Chest pain worsens after vomiting. He endorses abdominal pain but feels it related to the vomiting. He has had no hematemesis. Denies fever. Reports vomiting started after eating seafood. He has had multiple abdominal surgeries secondary to colorectal cancer. Currently has a colostomy, nephrostomy tube on the right, and urostomy as well. All 3 are currently working. Passing liquid stool per ostomy as well as urine. No cough/sputum. Initial EKG showed sinus tachycardia and nonspecific ST changes but concerns for ST elevation in anterior leads and reciprical depression in inferior leads. IV compazine given (zofran avoided d/t QT prolongation of 557). WBC count elevated at 29. Troponin elevated at 15.59. Lipase normal. + tachypnea. [facility] cardiology consulted. aVL in second EKG concerning for potential ACS but anterior leads thought not to be consistent with STEMI and may be seen in LBBB. CT ches/abd/pelvis obtained. No dissection or pulmonary emboli seens. Bilateral patch groundglass opacities noted; infection vs pulmonary edema. NTproBNP >61805. Cefepime and Vancomycin initiated in ED. Heparin bolus and drip initiated. Plavix 600 mg given. Covid testing was negative. He was also noted to be fully vaccinated for Covid 19. RA saturations in the upper 80's. O2 per NC initiated. Nebs given. Tachynpea and anxiety improved after ativan and morphine. ABG showed pH of 7.5, pCO2 25, pO2 75. Resp alkalosis. BiPAP then initiated and tolerated well. Troponin trending downward. Admitted to ICU with planned telemetry, echocardigram, troponin trending. Interim history: I met with Matthew both in the morning and the evening. I was told that he was confused and not responsive. When I walked in the room he sat up in bed and said he wanted some soda. He said he is feeling much much better. He said he has had a long history of the colon cancer. Its been stable for about 4 years. He has seen his oncologist recently and had scans done. He has a colostomy and urostomy in place. Per his over the last several months he has had a significant weight loss, about 50 pounds. Matthew blames this on the fact that his PCP was reducing his narcotics that he used for back pain. The back pain started when he had an operation on his back that did not relieve his pain. Matthew states that he has had several episodes (at least 5) where he was told he had food poisoning. Was very similar to this 1 where he ate something that had nausea and vomiting chest pain shortness of breath and ended up in the hospital. On admission he had elevated troponins was found to have urinary tract infection. He is not vaccinated for Covid. Neither is his . She is upset that she cannot visit him in the hospital Consults Consult date: 05/04/21 Requesting physician: Bert Canela Assessment and Plan Assessment and plan (1) Aspiration pneumonia: Status: Acute Qualifiers: Aspiration pneumonia type: due to vomit Laterality: right Lung location: unspecified part of lung Qualified Code(s): J69.0 - Pneumonitis due to inhalation of food and vomit (2) Malnutrition: Status: Acute Qualifiers: Malnutrition type: unspecified type Qualified Code(s): E46 - Unspecified protein-calorie malnutrition (3) NSTEMI (non-ST elevated myocardial infarction): Status: Acute (4) Vomiting: Status: Acute Qualifiers: Vomiting type: unspecified Vomiting Intractability: non-intractable Nausea presence: with nausea Qualified Code(s): R11.2 - Nausea with vomiting, unspecified (5) Multifocal pneumonia: Status: Acute (6) History of colon cancer: Status: Acute (7) Smoker: Status: Acute (8) Palliative care patient: Status: Acute Assessment and plan: I have spoken with the hospitalist team and read his echo. He has a very low EF. Given his present weight loss and poor functional status, I doubt that he would be a good candidate for interventions. He certainly would have to get stronger prior to this Back pain?recent decreasing his narcotics. I doubt that this is the cause of his present nausea and weight loss Covid vaccine?encouraged him to consider this I did speak to him for some time about his CODE STATUS. He said to me both in the morning and also in the evening that he did not want to go for interventions, he did not want CPR including intubation. He did fill out the first page of his POLST form. I also did speak to his Claire about his present condition. She understood that he was not doing well. She was also upset because she could not visit him because she was not vaccinated. Review of Systems Narrative: HIs nausea is improving. He is feeling less weak but still not able to do much such as walking. He does not have chest pain. His breathing is improved. He does not feel like eating much which is been typical for him [facility] Medical History ASCVD (arteriosclerotic cardiovascular disease) Chronic low back pain Colorectal polyps (~07/16/19) COPD (chronic obstructive pulmonary disease) History of chemotherapy (12/12/17) History of colon cancer stage 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 s/p preOp chemo & XRT APR and radical cystecyomy/prostectomy postOp adjuvent chemo History of prostate cancer Hx of non-ST elevation myocardial infarction (NSTEMI) pt had cath 2016. x2 vessel Dx. treated w/ meds only last echo 2017: EF 48% Port-A-Cath in place Rectal cancer (02/10/17) Smoker Stomal prolapse Surgical History Colostomy (05/18/17) s/p APR. permanent stoma. EGD - IV Sedation (03/11/17) Prostatectomy / Cystectomy (09/27/17) S/P colonoscopy (~07/16/19) Sigmoidoscopy (03/11/17) Spinal Surgery laminectomy L4-L5 Family History Other Cancer Emphysema lung Heart disease Social History Smoking/Tobacco Use Status: Current every day Tobacco Type: cigarettes Smoking risk assessment performed?: Yes Alcohol Intake: former Drug use: Occasionally Substance use type: marijuana Current gender identity: male Do you feel safe at home: Yes Do you feel safe in your relationship?: Yes Exam Narrative Exam Narrative: Cachectic appearing male. He has a BMI of 19. He is slightly disheveled but very cooperative and does recount his history in full sentences. He admits it has been a long time since he has been able to walk any distance. He often times has to stop and take a rest. His heart was regular with a systolic murmur. Lungs decreased breath sounds. Difficult to tenderness. Abdomen was nontender. Legs did not have any edema. Results Last Vital Signs Temp 98.4 F 05/04/21 08:00 Pulse 93 H 05/04/21 12:46 Resp 28 H 05/04/21 13:40 BP 120/68 05/04/21 12:46 Pulse Ox 97 05/04/21 13:40 Labs Result diagrams: 05/05/21 04:18 05/05/21 04:18 Labs: Laboratory Results - last 24 hr 05/03/21 05/03/21 05/03/21 14:40 15:43 15:43 WBC RBC Hgb Hct MCV MCH MCHC RDW Plt Count MPV Immature Gran % Neutrophils % Lymphocytes % Monocytes % Eosinophils % Basophils % Nucleated RBC % Absolute Neutrophils Absolute Lymphocytes Absolute Monocytes Absolute Eosinophils Absolute Basophils APTT 29.2 H ABG Sample Site ABG pH ABG pCO2 ABG pO2 ABG HCO3 ABG Total CO2 ABG O2 Saturation ABG Base Excess VBG Lactate 4.7 H* Oxygen Liter Flow FiO2 Sodium Potassium Chloride Carbon Dioxide Anion Gap BUN Creatinine Estimated GFR/1.73 m2 Glucose Calcium Total Bilirubin AST ALT Alkaline Phosphatase Troponin I 9.67 H* Total Protein Albumin Triglycerides Total Cholesterol LDL Cholesterol, Calc HDL Cholesterol Procalcitonin TSH Urine Color Urine Clarity Urine pH Ur Specific [place] Urine Protein Urine Ketones Urine Blood Urine Nitrite Urine Bilirubin Urine Urobilinogen Ur Leukocyte Esterase Urine RBC Urine WBC Ur Epithelial Cells Urine Crystals Urine Bacteria Urine Mucus Urine Other Ur Culture Indicated? Urine Glucose 05/03/21 05/03/21 05/03/21 15:43 19:53 19:53 WBC RBC Hgb Hct MCV MCH MCHC RDW Plt Count MPV Immature Gran % Neutrophils % Lymphocytes % Monocytes % Eosinophils % Basophils % Nucleated RBC % Absolute Neutrophils Absolute Lymphocytes Absolute Monocytes Absolute Eosinophils Absolute Basophils APTT 32.5 H ABG Sample Site ABG pH ABG pCO2 ABG pO2 ABG HCO3 ABG Total CO2 ABG O2 Saturation ABG Base Excess VBG Lactate Oxygen Liter Flow FiO2 Sodium Potassium Chloride Carbon Dioxide Anion Gap BUN Creatinine Estimated GFR/1.73 m2 Glucose Calcium Total Bilirubin AST ALT Alkaline Phosphatase Troponin I 7.87 H* Total Protein Albumin Triglycerides Total Cholesterol LDL Cholesterol, Calc HDL Cholesterol Procalcitonin 0.3 TSH Urine Color Urine Clarity Urine pH Ur Specific [place] Urine Protein Urine Ketones Urine Blood Urine Nitrite Urine Bilirubin Urine Urobilinogen Ur Leukocyte Esterase Urine RBC Urine WBC Ur Epithelial Cells Urine Crystals Urine Bacteria Urine Mucus Urine Other Ur Culture Indicated? Urine Glucose 05/03/21 05/03/21 05/04/21 20:10 21:44 03:32 WBC RBC Hgb Hct MCV MCH MCHC RDW Plt Count MPV Immature Gran % Neutrophils % Lymphocytes % Monocytes % Eosinophils % Basophils % Nucleated RBC % Absolute Neutrophils Absolute Lymphocytes Absolute Monocytes Absolute Eosinophils Absolute Basophils APTT 47.4 H D ABG Sample Site Right Radial ABG pH 7.54 H ABG pCO2 27 L ABG pO2 81 ABG HCO3 24 ABG Total CO2 21 L ABG O2 Saturation 97 ABG Base Excess 1 VBG Lactate Oxygen Liter Flow 12/6 FiO2 21% Sodium Potassium Chloride Carbon Dioxide Anion Gap BUN Creatinine Estimated GFR/1.73 m2 Glucose Calcium Total Bilirubin AST ALT Alkaline Phosphatase Troponin I Total Protein Albumin Triglycerides Total Cholesterol LDL Cholesterol, Calc HDL Cholesterol Procalcitonin TSH Urine Color Yellow Urine Clarity Sl Cloudy Urine pH 7.0 Ur Specific [place] 1.015 Urine Protein 30 H Urine Ketones Negative Urine Blood Moderate H Urine Nitrite Positive H Urine Bilirubin Negative Urine Urobilinogen 0.2 Ur Leukocyte Esterase Moderate H Urine RBC 20-50 H Urine WBC >50 H Ur Epithelial Cells Negative Urine Crystals Negative Urine Bacteria Many Urine Mucus Negative Urine Other Many Renal Ur Culture Indicated? Yes Urine Glucose Negative 05/04/21 05/04/21 03:32 03:32 WBC 19.64 H D RBC 3.78 L Hgb 11.0 L D Hct 31.7 L D MCV 83.9 MCH 29.1 MCHC 34.7 RDW 13.9 Plt Count 259 D MPV 10.1 Immature Gran % 0.6 Neutrophils % 87.2 Lymphocytes % 6.6 Monocytes % 5.5 Eosinophils % 0.0 Basophils % 0.1 Nucleated RBC % 0 Absolute Neutrophils 17.13 H Absolute Lymphocytes 1.30 Absolute Monocytes 1.08 H Absolute Eosinophils 0.00 Absolute Basophils 0.02 APTT ABG Sample Site ABG pH ABG pCO2 ABG pO2 ABG HCO3 ABG Total CO2 ABG O2 Saturation ABG Base Excess VBG Lactate Oxygen Liter Flow FiO2 Sodium 140 Potassium 3.6 Chloride 103 Carbon Dioxide 26.9 Anion Gap 10.1 BUN 32 H Creatinine 1.4 H Estimated GFR/1.73 m2 51.02 Glucose 125 H Calcium 8.5 Total Bilirubin 0.4 AST 64 H ALT 26 Alkaline Phosphatase 78 Troponin I Total Protein 5.8 L Albumin 2.8 L Triglycerides 88 Total Cholesterol 214 H LDL Cholesterol, Calc 120 H HDL Cholesterol 77 Procalcitonin TSH 3.79 H Urine Color Urine Clarity Urine pH Ur Specific [place] Urine Protein Urine Ketones Urine Blood Urine Nitrite Urine Bilirubin Urine Urobilinogen Ur Leukocyte Esterase Urine RBC Urine WBC Ur Epithelial Cells Urine Crystals Urine Bacteria Urine Mucus Urine Other Ur Culture Indicated? Urine Glucose
[2021-05-04] MEDS: Normal Saline Flush 10 ML SYR IVP (16:25)
[2021-05-04] MEDS: cefTRIAXone 1 GM/50 ML BAG IVPB (21:15)
[2021-05-05] VITALS (33 sets, daily range): BP systolic 79–102; BP diastolic 55–73; PULSE 69–82; RESP 8–31; TEMP 36.6; O2SAT 94–99
[2021-05-05 04:26] LABS: Abs Immature Grans 0.04 10^3/uL (0.0-0.06); Absolute Basophil Count 0.01 10^3/uL (0.0-0.2); Absolute Eosinophil Count 0.01 10^3/uL (0.0-0.7); Absolute Lymphocyte Count 1.51 10^3/uL (1.2-3.4); Absolute Monocyte Count 0.48 10^3/uL (0.1-0.8); Absolute Neutrophil Count 10.25 10^3/uL (1.2-6.7); Basophils % 0.1; Eosinophils % 0.1; HCT 33.7 % (40.0-50.0); HGB 11.2 g/dL (13.5-17.5); Immature Grans % 0.3; Lymphocytes % 12.3; MCH 28.9 pg (27.0-33.0); MCHC 33.2 % (32.0-36.0); MCV 87.1 fL (80-95); Monocytes % 3.9; Neutrophils % 83.3; Nucleated RBC 0 %; Platelet Count 257 10^3/uL (130-400); RBC 3.87 10^6/uL (4.36-5.78); RDW 14.1 % (11.8-14.1); RDW-SD 44.6 fL
[2021-05-05 04:40] LABS: PTT Activated 37.9 sec (21.0-27.5)
[2021-05-05 05:14] LABS: ALT 26 U/L (16-63); AST 30 U/L (15-37); Albumin 2.6 g/dL (3.4-5.0); Alkaline Phosphatase 69 U/L (46-116); Anion Gap 9.7 mmol/L (3-11); BUN 31 mg/dL (7-18); Bilirubin, Total 0.4 mg/dL (0.2-1.0); CO2 24.3 mmol/L (21.0-32.0); CREATININE 1.3 mg/dL (0.70-1.30); Calcium 8.3 mg/dL (8.5-10.1); Chloride 106 mmol/L (98-107); Estimated GFR 55.58 (mL/min/1.73m2); Glucose 105 mg/dL (74-106); Potassium 3.6 mmol/L (3.5-5.1); Sodium 140 mmol/L (136-145); Total Protein 5.7 g/dL (6.4-8.2)
--- NOTE | 2021-05-05 09:06 | W.PULMCC ---
General Date of Service Date of service: 05/05/21 Time of Service: 07:45 Reason for Admission to ICU: Troponin Elevation Assessment and Plan Assessment and plan (1) NSTEMI (non-ST elevated myocardial infarction): Status: Acute (2) Vomiting: Status: Acute Qualifiers: Vomiting type: unspecified Vomiting Intractability: non-intractable Nausea presence: with nausea Qualified Code(s): R11.2 - Nausea with vomiting, unspecified (3) History of colon cancer: Status: Acute (4) COPD (chronic obstructive pulmonary disease): Status: Chronic Qualifiers: COPD type: unspecified COPD Qualified Code(s): J44.9 - Chronic obstructive pulmonary disease, unspecified (5) Pulmonary embolism: Status: Chronic Qualifiers: Pulmonary embolism type: single subsegmental (without acute cor pulmonale) Qualified Code(s): I26.93 - Single subsegmental pulmonary embolism without acute cor pulmonale (6) Respiratory alkalosis: Status: Acute (7) Leukocytosis: Status: Acute Qualifiers: Leukocytosis type: leukemoid reaction Qualified Code(s): D72.823 - Leukemoid reaction (8) STEPHANIE (acute kidney injury): Status: Acute (9) Malnutrition: Status: Acute Qualifiers: Malnutrition type: unspecified type Qualified Code(s): E46 - Unspecified protein-calorie malnutrition (10) Aspiration pneumonia: Status: Acute Assessment and plan: This is a 66-year-old gentleman with a complicated medical history of high stage colon cancer with a colostomy as well as urostomy tubes, COPD, and pulmonary embolism who presented to the emergency department after significant vomiting associated with eating seafood. On his CT abdomen his stomach appears to be full with fluid that is double density is in nature. This could be concerning for bleeding. He was found to have a right-sided pneumonia that is consistent with an aspiration event. His chest CT is also somewhat concerning for septal thickening of which the differential could be volume versus malignancy related (lymphangitic spread). He also presents with some nonspecific EKG changes in association with an impressive troponin bump sent with type I NSTEMI, particularly given his cardiac history. Although he has a complicated clinical history overall he is improving quite significantly. Qualifiers: Aspiration pneumonia type: due to vomit Laterality: right Lung location: unspecified part of lung Qualified Code(s): J69.0 - Pneumonitis due to inhalation of food and vomit Recommendations Pulmonary: Hypoxic respiratory failure, resolved - supplemental O2 to support sats between 88-92% - if he were to worsen, would recommend HFNC to support his oxygen COPD (prior diagnosis in chart) No PFT's in system and no significant emphysema on CT scan - albuterol HFA as needed on discharge Cardiac: NSTEMI, likely type I - updated TTE shows EF 25% - transition back to Xarelto - continue clopidogrel - would benefit from further evaluation once improved clinically CHF - continue home cardiac meds Renal: STEPHANIE, improving - in the setting of hypoxia, seems to be self resolving Respiratory Alkalosis - 1 dose of Diamox given, with decrease in serum bicarb I&O: Intake & Output 05/02/21 05/03/21 05/04/21 05/05/21 23:59 23:59 23:59 23:59 Intake Total 1705.917 / 1705.917 421.867 / 421.867 125.942 / 125.942 Output Total 1580 / 1580 585 / 585 80 / 80 Balance 125.917 / 125.917 -163.133 / -163.133 45.942 / 45.942 Weight 55.9 kg Daily Fluid Goal:: even GI Nutrition: Malnutrition - nutrition consult Acute gastritis, resolved - Zofran as needed Double density on Abd CT - NGT placement found no blood Date of Last Bowel Movement: 05/05/21 Infectious Disease: Aspiration Pneumonia Appearance and story are consistent with an aspiration in the setting of vomiting. - recommend ceftriaxone 1g - no need for vanc Hematologic: h/o pulmonary embolism - transition back to Xarelto Leukocytosis Due to aspiration PNA Neurologic: No acute concerns Endocrine: No acute concerns Lines: PIV Prophylaxis: Anticoagulated No need for GI ppx Code Status: Resuscitation Status DNR/DNI Subjective Critical and life-threatening events over the past 24 hours: He is feeling great today. Not requiring oxygen. Has an appetite and is eating this morning. Exam Narrative Exam Narrative: Bedside POCUS 05/04/21: Limited views. EF appears to be decreased. RV normal in size and function. IVC with normal size and collapsability. Small right pleural effusion, not large enough to consider thoracentesis. No left effusion. Const General: no acute distress Nutritional Appearance: cachectic and malnourished [facility] Head: normocephalic Ears: external ears normal and no periauricular adenopathy General nose exam: nasal mucous membranes and turbinates normal Face and sinus: sinuses nontender Mouth: oropharynx normal and moist mucous membranes Teeth and gingiva: dentition normal Eyes General: appearance normal, both eyes and all related structures Pupils: PERRL Neck Neck: normal visual inspection and no lymphadenopathy Chest Chest: normal inspection of the chest Resp Effort & Inspection: normal respiratory effort Auscultation: clear to auscultation bilaterally, no rales, no rhonchi and no wheezes Cardio Rate: regular rate Rhythm: regular rhythm Heart Sounds: S1 normal, S2 normal and no murmurs Pulses: radial pulses present bilaterally GI Inspection: normal to inspection Palpation: soft Skin General skin exam: no rashes or lesions noted Neuro General: patient alert, patient awake and patient oriented x3 Extrem General: no clubbing, cyanosis or edema Psych Mental Status: mental status grossly normal Affect: normal affect Attitude: cooperative Most Recent VS/Results Last Vital Signs Temp 36.0 C L 05/04/21 20:11 Pulse 74 05/05/21 03:02 Resp 30 H 05/05/21 03:10 BP 83/57 L 05/05/21 03:02 Pulse Ox 97 05/05/21 03:20 Laboratory Results - last 24 hr 05/05/21 05/05/21 05/05/21 04:18 04:18 04:18 WBC 12.30 H D RBC 3.87 L Hgb 11.2 L Hct 33.7 L MCV 87.1 MCH 28.9 MCHC 33.2 RDW 14.1 Plt Count 257 MPV 10.0 Immature Gran % 0.3 Neutrophils % 83.3 Lymphocytes % 12.3 Monocytes % 3.9 Eosinophils % 0.1 Basophils % 0.1 Nucleated RBC % 0 Absolute Neutrophils 10.25 H Absolute Lymphocytes 1.51 Absolute Monocytes 0.48 Absolute Eosinophils 0.01 Absolute Basophils 0.01 APTT 37.9 H Sodium 140 Potassium 3.6 Chloride 106 Carbon Dioxide 24.3 Anion Gap 9.7 BUN 31 H Creatinine 1.3 Estimated GFR/1.73 m2 55.58 Glucose 105 Calcium 8.3 L Total Bilirubin 0.4 AST 30 ALT 26 Alkaline Phosphatase 69 Total Protein 5.7 L Albumin 2.6 L Review of Systems All systems reviewed & are unremarkable except as noted in HPI and below Constitutional Constitutional: Reports fatigue, Reports malaise and Reports weight loss Cardiovascular Cardiovascular: Denies chest pain and Reports dyspnea on exertion Respiratory Respiratory: Denies chest congestion, Denies cough, Denies excessive phlegm production and Reports dyspnea on exertion Gastrointestinal Gastrointestinal: Reports melena, Reports change in stool character, Denies nausea, Denies vomiting and Denies hematemesis Endocrine Endocrine: Reports fatigue
--- NOTE | 2021-05-05 09:20 | PDOC.CMDIS ---
- If Service Date Differs Date of service: 05/05/21 Time of Service: 09:23 LACE Index Scoring Tool - Questions: Length of Stay (in days): 2 Acuity (Admit via E.D.?): Yes Comorbidities: Chronic Pulmonary Disease, Any Tumor E.D. Visits: 1 - Answers: Total Score: 11 Risk of Readmission: High Risk Care Management Discharge Reason for Hospitalization: Multifocal pneumonia, NSTEMI Discharge Plan: Matthew will return home with new home health orders for RN/PT. He is now being followed by Palliative Care, and will follow up with his PCP and plan of care as prescribed. He will transport via private vehicle with his . Patient/Family Education Needs: Review discharge instructions, discuss Ask Me Three. Services Needed at Discharge: Home Health Care Services (New orders )
[2021-05-05] MEDS: Aspirin 81 MG CHEW PO (09:22)
[2021-05-05] MEDS: Methadone 10 MG TAB PO (09:22)
[2021-05-05] MEDS: Famotidine 20 MG TAB PO (09:23)
[2021-05-05] MEDS: Clopidogrel 75 MG TAB PO (09:23)
[2021-05-05] MEDS: Nicotine 14 MG/24 HR PATCH TD (09:24)
--- NOTE | 2021-05-05 10:31 | W.PM.DS.N ---
Date of service: 05/05/21 Time of Service: 10:32 DS: Diagnosis Discharge Diagnosis (1) NSTEMI (non-ST elevated myocardial infarction): Status: Acute (2) Vomiting: Status: Acute (3) History of colon cancer: Status: Acute (4) COPD (chronic obstructive pulmonary disease): Status: Chronic (5) Pulmonary embolism: Status: Chronic (6) Respiratory alkalosis: Status: Acute (7) Leukocytosis: Status: Acute (8) STEPHANIE (acute kidney injury): Status: Acute (9) Malnutrition: Status: Acute (10) Aspiration pneumonia: Status: Acute Discharge Plan Disposition Patient Disposition: HOME W/HOME HEALTH SERVICE Condition: Poor Discharge Details Reason For Visit: Multifocal Pneumonia,NSTEMI Admit Date/Time: 05/03/21 12:39 Admit Provider: Bert Canela Attending Provider: Bert Canela [facility] Hospital Course: This is a 66 yo male with a PMH of colon cancer with colostomy and urostomy, COPD, current tobacco user, ASCVD, pulmonary embolism. He presented to ED with complaint of chest pain that he relates to persistent vomiting since Tuesday morning at 2 AM. He endorsed the inability to keep anything down currently, including water or servando micky. Initially denied difficulty breathing. Chest pain worsens after vomiting. He endorses abdominal pain but feels it related to the vomiting. He has had no hematemesis. Denies fever. Reports vomiting started after eating seafood. He has had multiple abdominal surgeries secondary to colorectal cancer. Currently has a colostomy, nephrostomy tube on the right, and urostomy as well. All 3 are currently working. Passing liquid stool per ostomy as well as urine. No cough/sputum. Initial EKG showed sinus tachycardia and nonspecific ST changes but concerns for ST elevation in anterior leads and reciprical depression in inferior leads. IV compazine given (zofran avoided d/t QT prolongation of 557). WBC count elevated at 29. Troponin elevated at 15.59. Lipase normal. + tachypnea. [facility] cardiology consulted. aVL in second EKG concerning for potential ACS but anterior leads thought not to be consistent with STEMI and may be seen in LBBB. CT ches/abd/pelvis obtained. No dissection or pulmonary emboli seens. Bilateral patch groundglass opacities noted; infection vs pulmonary edema. NTproBNP >52961. Cefepime and Vancomycin initiated in ED. Heparin bolus and drip initiated. Plavix 600 mg given. Covid testing was negative. He was also noted to be fully vaccinated for Covid 19. RA saturations in the upper 80's. O2 per NC initiated. Nebs given. Tachynpea and anxiety improved after ativan and morphine. ABG showed pH of 7.5, pCO2 25, pO2 75. Resp alkalosis. BiPAP then initiated and tolerated well. Troponin trending downward. Admitted to ICU with planned telemetry, echocardigram, troponin trending. Echocardiogram; technically limited study due to inability to position pt. EF < 20%. Akinesis of all maxwell of the LAD distribution. Antibiotic changed to Rocephin. His WBC count neared normal; 12.30. Home on Cefdinir for 7 days. Pulmonary medicine consulted and followed patient. His heparin drip stopped and will restart home Eliquis. He is accepting of home health nursing and PT. His is a very capable caregiver as well. Palliative care was consulted and he did decide on a code status of DNR/DNI. His prognosis is poor given his colon cancer, malnutrition and now, worsened cardiac health. Arranging HH nursing and PT PCP follow up in 1-2 weeks. Palliative care f/u in 1-3 weeks. Home Meds and New Rx's Prescriptions: New clopidogrel 75 mg Tablet 75 mg PO DAILY Qty: 30 RF: 0 aspirin 81 mg Tablet,Chewable 81 mg PO DAILY Qty: 0 RF: 0 cefdinir 300 mg capsule 300 mg PO BID Qty: 14 RF: 0 Continued Xarelto 10 mg tablet 10 mg PO DAILY RF: 0 methadone 10 MG tablet 10 mg PO TID RF: 0 oxycodone 10 mg Tablet 10 mg PO 6X/DAY RF: 0 metoprolol tartrate 25 MG tablet 25 mg PO HS RF: 0 nitroglycerin [Nitrostat] 0.4 MG tablet, sublingual 0.4 mg Sublingual DAILY RF: 0 Movantik 12.5 mg tablet 12.5 mg PO HS RF: 0 Discharge Instructions Activity:: Activity as Tolerated Equipment/Supplies:: No Equipment Needed Diet:: As Tolerated Discharge Orders Discharge Orders: Discharge Order (Routine); Ordered 05/05/21 Ordered By: Bert Nolker DS: Summary Time Spent with Patient providing and/or coordinating discharge services: Greater than 30 minutes Status at Discharge Functional status at discharge: independent ambulation (will have HH PT evaluate for need of walker or cane.) Overall status at discharge: other (Has a new baseline) Mental Status: mental status grossly normal Speech and Movement: speech and movement normal Mood: congruent mood Affect: normal affect Exam Narrative Exam Narrative: Frail, thin male asleep in bed. Const General: cooperative and no acute distress Nutritional Appearance: thin and underweight Orientation: alert, awake, oriented to person, oriented to place, oriented to time and other (asleep; wakens readily with verbal stimuli, answers some questions.) HENMT Head: normocephalic and atraumatic Eyes Sclera: sclerae normal Pupils: PERRL Neck Neck: full ROM and no JVD Resp Effort & Inspection: normal respiratory effort Auscultation: clear to auscultation bilaterally and diminished lung sounds Cardio Rate: regular rate and tachycardic Rhythm: regular rhythm Heart Sounds: S1 normal and S2 normal GI Inspection: other (colostomy intact. ) Palpation: soft and nontender Skin General skin exam: no rashes or lesions noted Extrem General: no pedal edema and no calf tenderness Psych Mental Status: mental status grossly normal Speech and Movement: speech and movement normal Mood: congruent mood Affect: normal affect DS: Data Vitals/I&O Vitals and I&O: Vital Signs Temperature 36.6 C 05/05/21 09:28 Temperature Source Temporal Artery Scan 05/05/21 09:28 Pulse 74 05/05/21 03:02 Pulse 73 05/05/21 03:20 Respiratory Rate 30 H 05/05/21 03:10 Respiratory Effort Non-Labored 05/05/21 09:28 Respiratory Depth Normal 05/05/21 09:28 Respiratory Pattern Normal 05/05/21 09:28 Blood Pressure 83/57 L 05/05/21 03:02 Blood Pressure Mean 62 05/05/21 03:02 Blood Pressure Position Supine 05/05/21 09:28 Pulse Oximetry 97 05/05/21 03:20 Oxygen Delivery Method Room Air 05/05/21 09:28 Oxygen Flow Rate 0 05/05/21 09:28 Fraction of Inspired Oxygen (FIO2) 21 05/04/21 00:06 Pain Level 7 05/05/21 09:28 Comment 05/03/21 07:10 Intake & Output 05/04/21 05/04/21 05/05/21 11:59 23:59 11:59 Intake Total 100 / 421.867 321.867 / 421.867 125.942 / 125.942 Output Total 150 / 585 435 / 585 80 / 80 Balance -50 / -163.133 -113.133 / -163.133 45.942 / 45.942 Intake: IV 100 / 301.867 201.867 / 301.867 125.942 / 125.942 Oral 120 / 120 Output: Gastric Drainage 150 / 150 Left Nare 150 / 150 Urine 335 / 335 60 / 60 Stool 0 / 100 100 / 100 20 / 20 Other: Urine Color Pale Pale Pale Yellow Yellow Yellow Urine Appearance Clear Clear Clear Urine Odor None Normal Comment urostomy patent draining pale yellow urine,nephrostomy tube patent draining yellow urine Urostomy, nephrostomy appliance changed Stool Occult Blood Negative Negative Gastric Occult Blood Left Nare Negative Data Completed and Pending Labs on day of discharge: Labs from last 24 hours 05/05/21 05/05/21 05/05/21 04:18 04:18 04:18 WBC 12.30 H D RBC 3.87 L Hgb 11.2 L Hct 33.7 L MCV 87.1 MCH 28.9 MCHC 33.2 RDW 14.1 Plt Count 257 MPV 10.0 Immature Gran % 0.3 Neutrophils % 83.3 Lymphocytes % 12.3 Monocytes % 3.9 Eosinophils % 0.1 Basophils % 0.1 Nucleated RBC % 0 Absolute Neutrophils 10.25 H Absolute Lymphocytes 1.51 Absolute Monocytes 0.48 Absolute Eosinophils 0.01 Absolute Basophils 0.01 APTT 37.9 H Sodium 140 Potassium 3.6 Chloride 106 Carbon Dioxide 24.3 Anion Gap 9.7 BUN 31 H Creatinine 1.3 Estimated GFR/1.73 m2 55.58 Glucose 105 Calcium 8.3 L Total Bilirubin 0.4 AST 30 ALT 26 Alkaline Phosphatase 69 Total Protein 5.7 L Albumin 2.6 L Stool Campylobacter PCR Stool Salmonella PCR Stool Shigella PCR Shiga Toxin (PCR) 05/04/21 16:07 WBC RBC Hgb Hct MCV MCH MCHC RDW Plt Count MPV Immature Gran % Neutrophils % Lymphocytes % Monocytes % Eosinophils % Basophils % Nucleated RBC % Absolute Neutrophils Absolute Lymphocytes Absolute Monocytes Absolute Eosinophils Absolute Basophils APTT Sodium Potassium Chloride Carbon Dioxide Anion Gap BUN Creatinine Estimated GFR/1.73 m2 Glucose Calcium Total Bilirubin AST ALT Alkaline Phosphatase Total Protein Albumin Stool Campylobacter PCR Pending Stool Salmonella PCR Pending Stool Shigella PCR Pending Shiga Toxin (PCR) Pending Preliminary micro results at discharge 05/03/21 21:44 Urine Culture - Preliminary Urine - Reflex from Ua Gram Positive Celia,Mixed Gram Negative Ming 05/03/21 14:40 Blood Culture - Preliminary Blood NO GROWTH 24 HOURS 05/03/21 14:40 Blood Culture - Preliminary Blood NO GROWTH 24 HOURS PFSH Medical History ASCVD (arteriosclerotic cardiovascular disease) Chronic low back pain Colorectal polyps (~07/16/19) COPD (chronic obstructive pulmonary disease) History of chemotherapy (12/12/17) History of colon cancer stage 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 s/p preOp chemo & XRT APR and radical cystecyomy/prostectomy postOp adjuvent chemo History of prostate cancer Hx of non-ST elevation myocardial infarction (NSTEMI) pt had cath 2016. x2 vessel Dx. treated w/ meds only last echo 2017: EF 48% Port-A-Cath in place Rectal cancer (02/10/17) Smoker Stomal prolapse Surgical History Colostomy (05/18/17) s/p APR. permanent stoma. EGD - IV Sedation (03/11/17) Prostatectomy / Cystectomy (09/27/17) S/P colonoscopy (~07/16/19) Sigmoidoscopy (03/11/17) Spinal Surgery laminectomy L4-L5 Family History Other Cancer Emphysema lung Heart disease Social History Smoking/Tobacco Use Status: Current every day Tobacco Type: cigarettes Smoking risk assessment performed?: Yes Alcohol Intake: former Drug use: Occasionally Substance use type: marijuana Current gender identity: male Do you feel safe at home: Yes Do you feel safe in your relationship?: Yes
--- NOTE | 2021-05-05 10:50 | PDOC.HHF2F ---
Home Health Certification Home Health Certification: 1. Encounter Date and Reason I certify that Saúl Garcia was seen by Bert Canela MD on 05/05/21 and that I had a [id number] encounter with this patient that meets the physician face to face encounter requirements. 2. Clinical Findings Supporting Skilled Need and Homebound Status I certify that home health services are medically necessary, include either intermittent fdc and/or physical/speech therapy, and that this patient is homebound in that absences from the home require considerable and taxing effort and are infrequent or of short duration, or are attributable to the need to receive medical care. [X] (a) Attached documentation from encounter provides clinical findings supporting skilled need and homebound status (including what assistance patient requires to leave the home). The encounter with the patient was in whole, or in part, for the following medical condition, which is the primary reason for home health care: Multifocal Pneumonia,NSTEMI Detention: Monitoring cardiac and respiratory status; s/p NSTEMI and ongoing pneumonia treatment. Medication monitoring. Physical Therapy:Evaluate and treat for generalized weakness secondary to cardiomyopathy and colon cancer. Speech Therapy: Homebound: Limited mobility d/t cardiomyopathy and cachexic state d/t colon cancer. 3. Certification and Authentication I certify that I composed the above information based on my clinical judgement relating to this patient's medical condition and, if applicable, clinical findings communicated to me by the NPP or inpatient physician who performed the Home Health Referral. All further orders will be obtained through Nyla Munoz (Community Based Physician - PCP)
== END 2021-05-05 12:15 | disposition home health service (06) | DRG 280 ==
LOC: ER 13:05 → ICU 15:20
PROVIDERS: Emergency Medicine; Internal Medicine; Admitting Provider Family Medicine; Emergency Provider Physician Assistant; PCP Internal Medicine; Visit Provider Family Medicine
DX: I21.4 Non-ST elevation (NSTEMI) myocardial infarction (principal); J69.0 Pneumonitis due to inhalation of food and vomit; J96.91 Respiratory failure, unspecified with hypoxia; I27.82 Chronic pulmonary embolism; E87.3 Alkalosis; N17.9 Acute kidney failure, unspecified; E46 Unspecified protein-calorie malnutrition; Z68.1 Body mass index [BMI] 19.9 or less, adult; Z20.822 Contact with and (suspected) exposure to COVID-19; R11.2 Nausea with vomiting, unspecified; I50.9 Heart failure, unspecified; I25.10 Atherosclerotic heart disease of native coronary artery without angina pectoris; G89.29 Other chronic pain; M54.5 Low back pain; J44.9 Chronic obstructive pulmonary disease, unspecified; I25.2 Old myocardial infarction; F17.210 Nicotine dependence, cigarettes, uncomplicated; Z93.3 Colostomy status; Z92.21 Personal history of antineoplastic chemotherapy; Z92.3 Personal history of irradiation; Z85.038 Personal history of other malignant neoplasm of large intestine; Z85.46 Personal history of malignant neoplasm of prostate; Z90.6 Acquired absence of other parts of urinary tract; Z93.6 Other artificial openings of urinary tract status; K29.00 Acute gastritis without bleeding; Z66 Do not resuscitate
CPT/HCPCS: 36415; 71275; 74177; 80053; 80061; 82805; 83690; 84145; 87040; 87081; 87505; 87635; 93005; 93306; 96361; 96365; 96366; 96368; 96375; 96376; 99222; 99291; 36600; 71045; 81003; 81015; 83605; 83735; 83880; 84443; 84484; 85025; 85610; 85730; 87086; 93010; 94640; 94660; 99223; 99233; 99239; J0696; J0780; J1120; J1940; J2060; J2270; J2930; J3490; J7614; Q9967

== ENCOUNTER → 2021-05-04 07:40 | Outpatient (BNVA) | payer MEDICARE, SELFPAY | PROVIDERS: PCP Internal Medicine; Referring Provider Internal Medicine; Visit Provider Internal Medicine Cardiovascular Disease | DX: R69 Illness, unspecified (principal) ==

== ENCOUNTER 2021-07-25 14:13 | Emergency (ER) | payer MEDICARE, SELFPAY ==
[2021-07-25] VITALS (87 sets, daily range): BP systolic 137–199; BP diastolic 63–116; PULSE 68–94; RESP 14–36; TEMP 36.7–37.2; O2SAT 85–100
--- NOTE | 2021-07-25 14:15 | RT.EKG_ITS ---
APPROVED REPORT Exam: Resting ECG Reason for Exam: abdominal pain Patient Location: E HR:75 bpm ECG Measurements Heart Rate 75 AXIS DC 104 P -48 QRSd 90 QRS 24 QT 406 T 43 QTc 453 Conclusion Sinus or ectopic atrial rhythm...P axis (-45,135) Nonspecific ST depression, anterior leads...ST <-0.10mV, V2-V4 Artifact. No STEMI.
[2021-07-25] MEDS: Ondansetron 4 MG/2 ML VIAL (14:40)
[2021-07-25] MEDS: Normal Saline 1,000 ML 1000 ML IV (14:40)
--- NOTE | 2021-07-25 14:40 | W.ED.GENAD ---
Discharge Plan Disposition Patient Disposition: [facility] Discharge Details Clinical Impression: Displacement of other urinary stents, initial encounter, Acute non-ST elevation myocardial infarction (NSTEMI), Acute UTI, Sepsis, Colitis, Acute dehydration Primary Care Provider: Nyla Munoz ED Provider: Anna Gabriel Home Meds and New Rx's Prescriptions: No Action Xarelto 10 mg tablet 10 mg PO DAILY RF: 0 methadone 10 MG tablet 10 mg PO TID RF: 0 oxycodone 10 mg Tablet 10 mg PO 6X/DAY RF: 0 metoprolol tartrate 25 MG tablet 25 mg PO HS RF: 0 nitroglycerin [Nitrostat] 0.4 MG tablet, sublingual 0.4 mg Sublingual DAILY RF: 0 Movantik 12.5 mg tablet 12.5 mg PO HS RF: 0 aspirin 81 mg Tablet,Chewable 81 mg PO DAILY Qty: 0 RF: 0 clopidogrel [Plavix] 75 mg tablet 75 mg PO DAILY Qty: 30 RF: 0 Discharge Data Discharge Date/Time-TO BE ENTERED AT DEPARTURE: 07/25/21 23:57 Medical Decision Making <KIRIT Keith - Last Filed: 07/26/21 08:07> This is a 66-year-old gentleman with a rather lengthy and complicated past medical history, unfortunately a poor and vague historian, presenting to the ER today reporting chills, abdominal pain, nausea and vomiting. Clinically he does have intermittent rigors, lung sounds are diminished at the bases, diffuse abdominal pain. Blood pressure is 188/104 with a pulse of 68, he is on a beta-hernan. No evidence of tachypnea, he is afebrile, O2 sats 99% on room air. Will obtain IV access, give IV fluids, Zofran, Dilaudid, initiate both a septic and cardiac work-up given his overall vague presentation and diffuse discomfort. Will obtain CT imaging of his chest, abdomen, pelvis given his complicated history with cancer, PE, and my concern of his potential compliance with his anticoagulation. Initial laboratory values reveal a white blood cell count of 17.34 no evidence of anemia. Platelet count 375. Lactate of 5.5. Sodium 141 potassium 3.3 creatinine 1.5 with a GFR of 47.12. Glucose 1 6, magnesium 1.7, lipase 93, procalcitonin less than 0.1. Urinalysis and troponin pending. Covid pending. Patient will receive a second liter of IV fluid, this time lactated Ringer's, provide IV magnesium and potassium. Patient is going to CT now. There is no clear source of infection. He is without tachycardia or hypotensive, will await antibiotics until we have additional information. Medical Records Medical records reviewed: Yes I reviewed the patient's medical records. Lab Data Lab results reviewed: Yes I reviewed the patient's lab results. Labs: 07/25/21 15:05 Blood Blood Culture - Pending 07/25/21 14:40 Blood Blood Culture - Pending Laboratory Tests Range/Units 07/25/21 07/25/21 07/25/21 14:40 14:40 14:40 WBC (4.4-10.8) 10^3/uL 17.34 H RBC (4.36-5.78) 10^6/uL 5.00 Hgb (13.5-17.5) g/dL 14.6 Hct (40.0-50.0) % 43.4 MCV (80-95) fL 86.8 MCH (27.0-33.0) pg 29.2 MCHC (32.0-36.0) % 33.6 RDW (11.8-14.1) % 13.7 Plt Count (130-400) 10^3/uL 375 MPV (8.0-11.0) fL 9.6 Immature Gran % 0.5 Neutrophils % 88.6 Lymphocytes % 6.6 Monocytes % 4.0 Eosinophils % 0.1 Basophils % 0.2 Nucleated RBC % % 0 Absolute Neutrophils (1.2-6.7) 10^3/uL 15.36 H Absolute Lymphocytes (1.2-3.4) 10^3/uL 1.14 L Absolute Monocytes (0.1-0.8) 10^3/uL 0.69 Absolute Eosinophils (0.0-0.7) 10^3/uL 0.02 Absolute Basophils (0.0-0.2) 10^3/uL 0.03 VBG Lactate (0.6-1.4) mmol/L 5.5 H* Sodium (136-145) mmol/L 141 Potassium (3.5-5.1) mmol/L 3.3 L Chloride (98-107) mmol/L 100 Carbon Dioxide (21.0-32.0) mmol/L 22.6 Anion Gap (3-11) mmol/L 18.4 H BUN (7-18) mg/dL 14 Creatinine (0.70-1.30) mg/dL 1.5 H Estimated GFR/1.73 m2 (mL/min/1.73m2) 47.12 Glucose (74-106) mg/dL 166 H Calcium (8.5-10.1) mg/dL 9.6 Magnesium (1.8-2.4) mg/dL 1.7 L Total Bilirubin (0.2-1.0) mg/dL 0.7 AST (15-37) U/L 24 ALT (16-63) U/L 25 Alkaline Phosphatase (46-116) U/L 108 Total Protein (6.4-8.2) g/dL 8.9 H Albumin (3.4-5.0) g/dL 4.5 Lipase (73-393) U/L Procalcitonin ng/mL < 0.1 COVID-19 Source Range/Units 07/25/21 07/25/21 14:40 14:55 WBC (4.4-10.8) 10^3/uL RBC (4.36-5.78) 10^6/uL Hgb (13.5-17.5) g/dL Hct (40.0-50.0) % MCV (80-95) fL MCH (27.0-33.0) pg MCHC (32.0-36.0) % RDW (11.8-14.1) % Plt Count (130-400) 10^3/uL MPV (8.0-11.0) fL Immature Gran % Neutrophils % Lymphocytes % Monocytes % Eosinophils % Basophils % Nucleated RBC % % Absolute Neutrophils (1.2-6.7) 10^3/uL Absolute Lymphocytes (1.2-3.4) 10^3/uL Absolute Monocytes (0.1-0.8) 10^3/uL Absolute Eosinophils (0.0-0.7) 10^3/uL Absolute Basophils (0.0-0.2) 10^3/uL VBG Lactate (0.6-1.4) mmol/L Sodium (136-145) mmol/L Potassium (3.5-5.1) mmol/L Chloride (98-107) mmol/L Carbon Dioxide (21.0-32.0) mmol/L Anion Gap (3-11) mmol/L BUN (7-18) mg/dL Creatinine (0.70-1.30) mg/dL Estimated GFR/1.73 m2 (mL/min/1.73m2) Glucose (74-106) mg/dL Calcium (8.5-10.1) mg/dL Magnesium (1.8-2.4) mg/dL Total Bilirubin (0.2-1.0) mg/dL AST (15-37) U/L ALT (16-63) U/L Alkaline Phosphatase (46-116) U/L Total Protein (6.4-8.2) g/dL Albumin (3.4-5.0) g/dL Lipase (73-393) U/L 93 Procalcitonin ng/mL COVID-19 Source Nasal/Nares ECG Data Attestation: I personally reviewed and interpreted this ECG (s) as follows: Interpretation: Please see official report by Dr. Hernández. Sinus or ectopic atrial rhythm, nonspecific ST depression, no STEMI <KIRIT Matson - Last Filed: 07/26/21 18:20> This complex gentleman was signed out to me by Micheal Kimbrough, physician staffing assistant at 1600 pending diagnostic imaging, complete labs, and reassessment Patient was experiencing rigors, febrile at time of my assessment, she was pending urinalysis and CT abdomen and pelvis, therefore empiric antibiotics were initiated immediately, 2 g of ceftriaxone and 500 of Flagyl, CT scan of patient's chest abdomen and pelvis was ordered by the previous provider, on the study, there is a right-sided percutaneous nephrostomy tube and right ureteral stent which are in place without hydronephrosis, Fluid-filled mildly distended duodenum with diffuse colonic wall thickening and mild pericolonic inflammatory stranding consistent with likely colitis CTA does not show any evidence of PE, resolution of infiltrates see doing okay. Unfortunately patient secondary to rigors, we suspect Mina has stent and there is concerned given his left mild obstruction that stent will need to be replaced this evening, Dr. Navarro, urologist at [facility] feels that patient has not had stent change since March of this year that it likely should be changed in the evening I spoke with interventional radiologist, Dr. Jess BETH and you at [facility] who relates that they are able to take the patient for procedure only, they are unable to fax expect the patient in transfer, they are only able to perform this procedure if we are able to arrange transport to their facility with ambulance waiting pending patient discharged secondary to ER capacity For several hours we attempted to find an ambulance crew that might be available to transfer this patient, however secondary to inclement conditions, the pandemic, and staffing, they were unable to transfer the patient, I subsequently called by [facility] and they are now unable to accept this patient even for procedure, I did request that they take the patient early in the morning to have this procedure performed, however they state that they are unable to plan this intervention and the patient will need to be admitted to this hospital and recontacted tomorrow, they will not formally staffed this patient for this procedure tomorrow making it a challenge for us to accept this patient to our hospital where there is no urologist or interventional radiologist available, this is not in the best interest of the patient I therefore contacted [facility] and spoke with Dr. Thompson, urology who feels the patient would benefit from interventional radiology this evening I was therefore transferred to the emergency room and spoke with Dr. Coleman who graciously expected the patient in transport, at this time patient is stable for transport at this time and the risk of transport outweighs benefit at this time as we do not have the capacity to manage this patient at this critical access hospital and patient are aware that they are being transferred to [facility] EKG does not show evidence of ischemia x2 3 hours apart, troponin initially 0.22, 2.73 hours after initial Patient takes Xarelto and aspirin and without any chest discomfort, therefore no indication for heparinization Repeat blood pressure 145/68, no indication for antihypertensives Leukocytosis, 17,000, left shift, anion gap of 18 consistent with dehydration, lactate 5.5, decreased to 3.7 after 2 L of IV fluids and an additional 1 L over 4 hours Fever control with IV Tylenol Patient is much more alert at time of reassessment, Medical Records Medical records reviewed: Yes I reviewed the patient's medical records. Lab Data Lab results reviewed: Yes I reviewed the patient's lab results. HPI <KIRIT Keith - Last Filed: 07/26/21 08:07> General Mode of arrival: ambulatory. Date/Time Provider Initiated Documentation: 07/25/21 14:13. Limitations to Documentation: no limitations. Information obtained by: patient. HPI Narrative: This is a 66-year-old male, past medical history of ASCVD, chronic low back pain, COPD, history of colon cancer and prostate cancer GFR now status post colostomy and urostomy, palliative care patient, [place], current smoker, presenting to the ER today reporting awaking this morning with chills, diffuse abdominal cramping, moderate to severe in nature, nausea and vomiting. Denies recent illness or sick contacts. Has been vaccinated for Covid. Reports normal output through his urostomy and colostomy. Denies fever, headache, neck pain, chest pain, shortness of breath, focal weakness, numbness, tingling, rash. Has not taken any medications today for his discomfort. Unfortunately he is a rather vague and poor historian, tells me it should all be in my notes in your system. Per his med rec he does take methadone, Plavix, Rivaroxaban daily. Related Data Home Medications Medication Instructions Recorded Confirmed metoprolol tartrate 25 mg PO HS 05/11/17 07/25/21 nitroglycerin [Nitrostat] 0.4 mg SUBLINGUAL DAILY 10/11/17 07/25/21 methadone 10 mg PO TID 03/21/18 07/25/21 oxycodone 10 mg PO 6X/DAY 04/30/19 07/25/21 rivaroxaban 10 mg tablet 10 mg PO DAILY 07/06/19 07/25/21 Movantik 12.5 mg PO HS 07/12/19 07/25/21 aspirin 81 mg PO DAILY #0 tab 05/05/21 07/25/21 clopidogrel [Plavix] 75 mg PO DAILY #30 tab 05/05/21 07/25/21 Previous Rx's Medication Instructions Recorded aspirin 81 mg PO DAILY #0 tab 05/05/21 clopidogrel [Plavix] 75 mg PO DAILY #30 tab 05/05/21 Allergies Allergy/AdvReac Type Severity Reaction Status Date / Time penicillin G Allergy Verified 07/25/21 14:44 General STACIA: 2 <KIRIT Matson - Last Filed: 07/26/21 18:20> General Mode of arrival: EMS. Limitations to Documentation: no limitations. Information obtained by: patient and family. Review of Systems <KIRIT Keith - Last Filed: 07/26/21 08:07> Constitutional Constitutional: Reports chills, Reports fatigue, Denies fever(s), Denies headache(s) and Reports malaise Eyes Eyes: Denies change in vision ENT Ears, Nose, Mouth, and Throat: Denies headache(s) and Denies neck pain Cardiovascular Cardiovascular: Denies chest pain and Denies dyspnea Respiratory Respiratory: Denies cough and Denies dyspnea Gastrointestinal Gastrointestinal: Reports abdominal pain, Denies melena, Denies hematochezia, Denies constipation, Denies diarrhea, Reports nausea and Reports vomiting Genitourinary Genitourinary: Denies hematuria and Denies dysuria Musculoskeletal Musculoskeletal: Reports back pain and Denies neck pain Integumentary/Breasts Skin/Breast: Denies rash Neurologic Neurologic: Denies headache(s) and Reports weakness (Generalized) Endocrine Endocrine: Reports fatigue Hematologic/Lymphatic Hematologic/Lymphatic: Reports easy bleeding and Reports easy bruising PFSH <KIRIT Keith - Last Filed: 07/26/21 08:07> Medical History ASCVD (arteriosclerotic cardiovascular disease) Chronic low back pain Colorectal polyps (~07/16/19) COPD (chronic obstructive pulmonary disease) History of chemotherapy (12/12/17) History of colon cancer stage 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 s/p preOp chemo & XRT APR and radical cystecyomy/prostectomy postOp adjuvent chemo History of prostate cancer Hx of non-ST elevation myocardial infarction (NSTEMI) pt had cath 2017. x2 vessel Dx. treated w/ meds only last echo 2017: EF 48% Port-A-Cath in place Rectal cancer (02/10/17) Smoker Stomal prolapse Surgical History Colostomy (05/18/17) s/p APR. permanent stoma. EGD - IV Sedation (03/11/17) Prostatectomy / Cystectomy (09/27/17) S/P colonoscopy (~07/16/19) Sigmoidoscopy (03/11/17) Spinal Surgery laminectomy L4-L5 Family History Other Cancer Emphysema lung Heart disease Social History Smoking/Tobacco Use Status: Current every day Tobacco Type: cigarettes Smoking risk assessment performed?: Yes Alcohol Intake: former Drug use: Daily Substance use type: marijuana Current gender identity: male Do you feel safe at home: Yes Do you feel safe in your relationship?: Yes Exam <KIRIT Keith - Last Filed: 07/26/21 08:07> Const General: cooperative, no acute distress and ill appearing chronically Orientation: alert, awake, oriented to person, oriented to place and other (Unsure of exact day) Other: Intermittent rigors HENMT Head: normal to inspection, normocephalic and atraumatic Face and sinus: normal facial exam Mouth: moist mucous membranes abnormal (yea) Eyes General: appearance normal, both eyes and all related structures Conjunctivae: conjunctivae normal Neck Neck: normal visual inspection, full ROM, no meningeal signs, trachea midline and supple Resp Effort & Inspection: normal respiratory effort and able to speak in complete sentences Auscultation: diminished lung sounds bilaterally in the lower lung hernandez Cardio Rate: regular rate Rhythm: regular rhythm GI Palpation: soft, not firm, no guarding, no pulsatile masses and tender (Diffuse) Auscultation: normal bowel sounds Back/Spine/Pelvis Back: back tenderness (Diffuse lumbar) Skin General skin exam: no rashes or lesions noted Neuro General: patient alert, patient awake, moves all extremities and no focal motor deficits Cognition: normal cognition Speech: speech normal Motor: muscle tone normal throughout Sensory Exam: no sensory deficits noted Extrem General: normal to inspection, full ROM and capillary refill normal Psych Appearance: grossly normal Mental Status: mental status grossly normal Critical Care Time <KIRIT Keith - Last Filed: 07/26/21 08:07> Critical Care Time Critical Care Time: Yes Total Critical Care Time: 35 Attestation: Upon my evaluation, this patient had a high probability of clinically significant, life-threatening deterioration due to their current medical conditions, which required my direct attention, intervention, and personal management. I have personally provided greater than 30 minutes of critical care time exclusive of the time spend on separately billable procedures. Time includes obtaining a history, examining the patient, pulse oximetry, review of laboratory data, radiology results, discussion with consultants, arranging urgent treatment with development of a management plan, evaluation of patient's response to treatment, and monitoring for potential decompensation. Interventions were performed as documented above. Sign Out <KIRIT Keith - Last Filed: 07/26/21 08:07> Sign Out Data: Sign Out Comment: Abdominal pain, nausea, vomiting. Lactate of 5.5, white count 17. Awaiting CTA of the chest, abdomen, pelvis, urinalysis, troponin, Covid. Given his leukocytosis and lactate, likely admission once work-up is complete. Antibiotics not initiated at this time as there is no clear source, awaiting images and urinalysis. Patient received 1 L IV fluid, Zofran, Dilaudid. Receiving a liter of lactated Ringer's, 10 IV potassium and 1 g IV magnesium Last updated by Micheal Kimbrough PA at 07/25/21 15:52
--- NOTE | 2021-07-25 14:41 | DI.CT_ITS ---
Exam(s) CT CHEST PE ABD PELVIS W EXAM: CT CHEST PE ABD PELVIS W CLINICAL HISTORY: abd pain, hx of pe. TECHNIQUE: Imaging Protocol: Axial CT angiography was performed with multi-slice acquisition and mu lti-planar and/or 3D reconstructions. CONTRAST MATERIAL: Intravenous: Omnipaque 350 Contrast volume:90 mL COMPARISON: CT CT CHEST/ABD/PEL W from 10/12/[address] CHEST/ABD/PEL W from 10/12/[address] THORAX ABD/PEL CTA from 05/03/[address] THORAX ABD/PEL CTA from 05/03/2021 FINDINGS: CHEST: Tracheobronchial tree: Patent where visualized. Pulmonary parenchyma: No consolidation or dominant measurable mass. No architectural distortion. Pulmonary Arteries: No evidence of filling defect to suggest pulmonary emboli. Mediastinum and Dominga: No dominant adenopathy or fluid collection. Small hiatal hernia. Pleura: No effusion or pneumothorax. Heart: The heart is not dilated. Coronary artery calcification. No pericardial effusion. Aorta: Thoracic aorta non-dilated. No evidence of dissection. Atherosclerosis. Bones: Within normal limits for the patient's age.No lytic or sclerotic lesions. Soft tissues: Unremarkable. ABDOMEN: Liver: Normal density. There are 2 tiny stable hypodensities in the liver. They are too small for fu rther characterization but likely reflect small cysts. Portal, Superior Mesenteric, and Splenic Veins: Unremarkable. Gallbladder and Biliary Tract: No radiodense calculus or dilation. Pancreas: Normal density, no abnormal calcifications or inflammatory process. Spleen: Normal. Adrenals: No masses seen. Kidneys: Normal size, contour and axis. No nephrolithiasis. The patient is status post cystectomy wi th an ileal conduit in the right abdomen. There is again seen a right nephrostomy tube which continu es into the ureter and into the ostomy bag. There is persistent dilatation of the left renal collect ing system which appears to have progressed since the prior examination. There is mild enhancement o f the wall of the ureter and pyelitis cannot be excluded. There is dilatation to the level of the il eal conduit. There are bilateral simple renal cysts which are stable. Abdominal Aorta: Abdominal portion non-dilated. Atherosclerosis. Bowel: There has been resection of the sigmoid colon and rectum. There is a colostomy again seen in the left abdomen. No evidence of appendicitis. There is no evidence of bowel obstruction. There is a question of mild diffuse thickening of the wall of the colon and colitis cannot be excluded. Plea se correlate clinically. There is again seen mild thickening of the wall of the antrum. This may be due to underdistention versus gastritis. Peritoneal Cavity: No ascites, collection or mesenteric inflammatory response. No free air. Lymph Nodes: Within normal limits. Bones: Within normal limits for the patient's age. No suspicious lytic or sclerotic lesions are iden tified. There is an L4 laminectomy. Soft Tissues: There is a right lower quadrant ileal conduit and a left lower quadrant colostomy. PELVIS: Bladder: Status post cystectomy. Reproductive Organs: Prostatectomy. Lymph Nodes: Within normal limits. Bones: Within normal limits. IMPRESSION: 1. No evidence pulmonary embolism, thoracic aortic dissection or aneurysm. 2. No acute pulmonary process. 3. Question of mild thickening of the wall of the colon an infectious or inflammatory colitis cannot be excluded. 4. Persistent dilatation of the left ureter which has mildly increased since the prior examination. There is a question of mild enhancement of the wall of the ureter and pyelitis cannot be excluded. 5. Status post cystectomy, prostatectomy and rectosigmoid resection with a right lower quadrant ileal conduit and a left lower quadrant colostomy. RADIATION DOSE DELIVERED: 725.13mGy.cm Total DLP DATA REPOSITORY: All CT scans at this facility are submitted to the National Radiology Data Registry (NRDR) Dose Index Registry (DIR) with the [employer] ([employer]). RADIATION OPTIMIZATION: All CT scans at this facility use at least one of these dose optimization te chniques: automated exposure control; mA and/or kV adjustment per patient size (includes targeted exa ms where dose is matched to clinical indication); or iterative reconstruction.
[2021-07-25] MEDS: HYDROmorphone 2 MG/ML VIAL 1 MG IVP (14:59)
[2021-07-25 15:01] LABS: Source Nasal/Nares
[2021-07-25 15:04] LABS: Abs Immature Grans 0.08 10^3/uL (0.0-0.06); Absolute Monocyte Count 0.69 10^3/uL (0.1-0.8); Basophils % 0.2; Eosinophils % 0.1; HCT 43.4 % (40.0-50.0); HGB 14.6 g/dL (13.5-17.5); Immature Grans % 0.5; Lymphocytes % 6.6; MCH 29.2 pg (27.0-33.0); MCHC 33.6 % (32.0-36.0); MCV 86.8 fL (80-95); MPV 9.6 fL (8.0-11.0); Neutrophils % 88.6; Nucleated RBC 0 %; Platelet Count 375 10^3/uL (130-400); RDW 13.7 % (11.8-14.1); RDW-SD 43.5 fL; WBC 17.34 10^3/uL (4.4-10.8)
[2021-07-25 15:05] LABS: Absolute Basophil Count 0.03 10^3/uL (0.0-0.2); Absolute Eosinophil Count 0.02 10^3/uL (0.0-0.7); Absolute Lymphocyte Count 1.14 10^3/uL (1.2-3.4); Absolute Neutrophil Count 15.36 10^3/uL (1.2-6.7)
[2021-07-25 15:09] LABS: Lactate 5.5 mmol/L (0.6-1.4)
[2021-07-25 15:29] LABS: BUN 14 mg/dL (7-18); CREATININE 1.5 mg/dL (0.70-1.30); Calcium 9.6 mg/dL (8.5-10.1); Estimated GFR 47.12 (mL/min/1.73m2); Glucose 166 mg/dL (74-106)
[2021-07-25 15:30] LABS: ALT 25 U/L (16-63); AST 24 U/L (15-37); Albumin 4.5 g/dL (3.4-5.0); Alkaline Phosphatase 108 U/L (46-116); Anion Gap 18.4 mmol/L (3-11); Bilirubin, Total 0.7 mg/dL (0.2-1.0); CO2 22.6 mmol/L (21.0-32.0); Chloride 100 mmol/L (98-107); Potassium 3.3 mmol/L (3.5-5.1); Sodium 141 mmol/L (136-145); Total Protein 8.9 g/dL (6.4-8.2)
[2021-07-25 15:36] LABS: Lipase 93 U/L (73-393); Magnesium 1.7 mg/dL (1.8-2.4)
[2021-07-25] MEDS: Normal Saline - Diluent 50 ML VIAL IV (15:45)
[2021-07-25 15:46] LABS: Procalcitonin < 0.1 ng/mL
[2021-07-25] MEDS: Normal Saline Flush 10 ML SYR IVP (15:46)
[2021-07-25] MEDS: Omnipaque 350 MG/ML 100 ML BTL IJ (15:46)
[2021-07-25 15:57] LABS: Troponin I 0.22 ng/mL (<0.06)
[2021-07-25 16:00] LABS: COVID-19 PCR Negative (Negative)
[2021-07-25] MEDS: Lactated Ringers 1,000 ML 1000 ML IV (16:12)
[2021-07-25 16:27] LABS: Bilirubin Negative (Negative); Clarity Cloudy (Clear); Glucose Negative (Negative); Ketones 15 mg/dL (Negative); Leukocyte Esterase Large (Negative); Nitrite Positive (Negative); Urobilinogen 0.2 EU/dL (Up TO 0.2)
[2021-07-25 16:28] LABS: Blood Moderate (Negative)
[2021-07-25 16:39] LABS: Bacteria Packed HPF (Negative); C & S Indicated? Yes; WBC >50 HPF (0-5)
[2021-07-25] MEDS: ACETAMINOPHEN 1,000 MG/100 ML BTL 400 MG IVPB (16:39)
[2021-07-25] MEDS: POTASSIUM CHLORIDE 10 MEQ/100 ML BAG 100 MEQ IVPB (16:40)
[2021-07-25 16:45] LABS: pCO2 (Venous) 28 mmHg (41-51); pH (Venous) 7.48 (7.31-7.41)
[2021-07-25 16:46] LABS: BE (Venous) -3 mmol/L (-2-3); HCO3 (Venous) 21 mmol/L (23-28); O2 Sat (Venous) 83 %; TCO2 (Venous) 18 mmol/L (24-29); pO2 (Venous) 44 mmHg
[2021-07-25] MEDS: metroNIDAZOLE 500 MG/100 ML BAG 100 MG IVPB (17:15)
[2021-07-25] MEDS: cefTRIAXone 2 GM/50 ML BAG IVPB (17:15)
--- NOTE | 2021-07-25 17:21 | DI.VRAD_ITS ---
Addendum created by Phylicia Gipson DO on 07/25/2021 5:36:52 PM EST: The findings were verbally communicated via telephone conference at 5:36 PM EST on 07/25/2021 with GALO Gabriel. The findings were acknowledged and understood. Initial report created on 07/25/2021 5:20:49 PM EST: PROCEDURE INFORMATION: Exam: CTA Chest With Contrast Exam date and time: 07/25/2021 3:13 PM Age: 66 years old Clinical indication: Other: Abd pain, HX of pe; Patient HX: Rectal CA, prostate CA, copd, heart disease, colostom, spinal surgery TECHNIQUE: Imaging protocol: Computed tomographic angiography of the chest with contrast. 3D rendering (Not supervised by radiologist): MIP and/or 3D reconstructed images were created by the technologist. Contrast material: OMNIPAQUE 350; Contrast volume: 90 ml; Contrast route: INTRAVENOUS (IV); COMPARISON: CT THORAX ABD/PEL CTA 05/03/2021 8:52 AM FINDINGS: Pulmonary arteries: Pulmonary arteries are adequately opacified to the segmental level. No pulmonary emboli within the main or segmental pulmonary arteries. Aorta: Normal caliber thoracic aorta with calcified atherosclerosis. No thoracic aortic aneurysm, pseudoaneurysm, intramural hematoma, penetrating atherosclerotic ulcer, or dissection. Lungs: Unremarkable. No consolidation. No masses. Parenchymal opacities on the April 2021 CT T have resolved. Pleural spaces: Unremarkable. No pneumothorax. No pleural effusion. Left pleural effusion on the April 2021 CT has resolved. Heart: Normal heart size. Coronary artery calcification. Mediastinal space: There is mild nonspecific dilation of the esophagus with layering fluid. Lymph nodes: Unremarkable. No enlarged lymph nodes. Diaphragm: There is a small hiatal hernia. Bones/joints: Multilevel degenerative disc disease of the visualized spine. No acute osseous abnormality. Soft tissues: Unremarkable. IMPRESSION: 1. No pulmonary emboli within the main or segmental pulmonary arteries. 2. Normal caliber thoracic aorta; no acute aortic syndrome. 3. Resolution of parenchymal opacities and pleural effusion on the April [address] CT. 4. Patulous thick-walled esophagus with layering fluid, may predispose to aspiration. PROCEDURE INFORMATION: Exam: CT Angiography Abdomen With Contrast Exam date and time: 07/25/2021 3:13 PM Age: 66 years old Clinical indication: Other: Abd pain, HX of pe; Patient HX: Rectal CA, prostate CA, copd, heart disease, colostom, spinal surgery TECHNIQUE: Imaging protocol: Computed tomographic angiography images of the abdomen with intravenous contrast material. 3D rendering (Not supervised by radiologist): MIP and/or 3D reconstructed images were created by the technologist. Contrast material: OMNIPAQUE 350; Contrast volume: 90 ml; Contrast route: INTRAVENOUS (IV); COMPARISON: CT THORAX ABD/PEL CTA 05/03/2021 8:52 AM FINDINGS: Aorta: Normal caliber abdominal aorta and proximal common iliac arteries with calcified atherosclerosis. Celiac trunk and mesenteric arteries: No occlusion or significant stenosis. Renal arteries: No occlusion or significant stenosis. Left iliac arteries: Iliac arteries: Left common iliac artery nonobstructive dissection flap and mild stenosis, unchanged. Normal caliber bilateral external iliac arteries and common femoral arteries. Stenosis at origin of both internal iliac arteries, left greater than right. Liver: The liver is unremarkable. Gallbladder and bile ducts: The gallbladder is unremarkable. No biliary ductal dilatation. Pancreas: The pancreas is unremarkable. Spleen: The spleen is unremarkable. Adrenals: The adrenal glands are unremarkable. Kidneys and ureters: Symmetric nephrograms. Right-sided percutaneous nephrostomy tube and right ureteral stent which extends from renal pelvis to ureter to ileal conduit and right-sided ureterostomy. No right-sided hydronephrosis. [id number] left hydroureteronephrosis is unchanged. mildly thickened enhancing left ureteral wall may be increased and is suggestive of pyelitis. Left ureter tapers proximal to the ureteroenteric anastomosis with possible mild extrinsic compression upon the posterior surface of the distal left ureter by proximal left common iliac artery ([id number]). Very mild focal right renal cortical thinning. Renal cysts, and hypodensities which are too small to characterize and likely cysts; no follow-up is recommended. Stomach and bowel: Post rectosigmoid resection with left lower quadrant colostomy. Markedly distended air and fluid-filled stomach, similar to prior. Gastric antral wall thickening without. inflammatory changes, may be mildly prominent relative to degree of distention and slightly increased since prior. Fluid-filled mildly distended duodenum without abnormal wall thickening or transition. Remainder of small bowel is not abnormally thick walled or distended. Diffuse colonic wall thickening and mild pericolonic inflammatory stranding. Appendix: Normal appendix. Lymph nodes: Unremarkable. No enlarged lymph nodes. Intraperitoneal space: Unremarkable. No free air. No significant fluid collection. Reproductive: Prostate has been removed. Bladder: Post cystectomy with right-sided ileal conduit. Bones/joints: Post L4 laminectomy. Severe degenerative change of the spine. Soft tissues: Fat containing left inguinal hernia. IMPRESSION: 1. Post rectosigmoid resection and left lower quadrant colostomy. Diffusely thick-walled colon with inflammatory stranding, likely infectious/inflammatory colitis. 2. Post cystectomy and right lower quadrant ileal conduit. Well-positioned right ureteral stents with no right-sided obstruction. Unchanged mild left hydroureteronephrosis with no delayed nephrogram or perinephric stranding to suggest significant obstruction. Possible mild mass effect upon the posterior left ureter by left common iliac artery. 3. Left ureteral wall is mildly thickened and enhancing, increased since prior, may indicate mild pyelitis. Correlate with urinalysis. 4. Unchanged, moderately distended, nonobstructed stomach may indicate delayed emptying. 5. Borderline gastric antral wall thickening, may represent under distention versus mild antral gastritis. Dictated and Authenticated by: Phylicia Gipson MD. Ordering:ARELIS Burton MD
--- NOTE | 2021-07-25 17:30 | RT.EKG_ITS ---
APPROVED REPORT Exam: Resting ECG Reason for Exam: abd pain Patient Location: E HR:88 bpm ECG Measurements Heart Rate 88 AXIS MN 144 P 79 QRSd 97 QRS 60 QT 374 T 25 QTc 458 Conclusion Sinus rhythm...normal P axis, V-rate 60- 99 Multiform ventricular premature complexes...short R-R, variable morphology Probable left atrial enlargement...P >50mS, <-0.10mV V1 Low voltage, extremity leads...all extremity leads <0.5mV Nonspecific ST depression, anterior leads...ST <-0.10mV, V2-V4 no stemi. significant artifact from shivering.
[2021-07-25] MEDS: HYDROmorphone 2 MG/ML VIAL (17:45)
--- NOTE | 2021-07-25 17:45 | DI.CT_ITS ---
Exam(s) CT HEAD CERVICAL SPINE WO EXAM: CT HEAD CERVICAL SPINE WO CLINICAL HISTORY: headache. TECHNIQUE: Imaging Protocol: Axial computed tomography images with coronal and sagittal reformatted images were created and reviewed COMPARISON: No exams were available for comparison FINDINGS: CT scan of the brain is limited secondary to residual intravenous contrast from the patient's CT scan of the abdomen and pelvis performed earlier in the day. CT Head: Ventricles and Extra axial spaces: Normal in size and morphology for the patient's age. Hemorrhage: Despite the limits of the examination, no definite intracranial hemorrhage is seen. Cerebral parenchyma: No acute territorial infarct. Midline shift: None. Brainstem/Cerebellum: Normal. Calvarium: Normal. Visualized Paranasal sinuses/Mastoids: There is mucosal thickening in the ethmoid air cells and right maxillary sinus. The remaining visualized paranasal sinuses are clear. Soft Tissues: Unremarkable. CT Cervical Spine: Bones: No acute fracture or subluxation. There is straightening of the normal cervical lordosis. Thi s may be due to muscle spasm or patient positioning. Degenerative changes are seen in the cervical s pine. Soft Tissues: Unremarkable. Lung Apices: Clear. IMPRESSION: 1. No acute intracranial process. 2. Mild chronic sinus disease. 3. Examination limited in its assessment for hemorrhage secondary to residual intravenous contrast ma terial. 4. No acute fracture or subluxation in the cervical spine. RADIATION DOSE DELIVERED: 1,362.02mGy.cm Total DLP DATA REPOSITORY: All CT scans at this facility are submitted to the National Radiology Data Registry (NRDR) Dose Index Registry (DIR) with the [employer] ([employer]). RADIATION OPTIMIZATION: All CT scans at this facility use at least one of these dose optimization te chniques: automated exposure control; mA and/or kV adjustment per patient size (includes targeted exa ms where dose is matched to clinical indication); or iterative reconstruction.
[2021-07-25] MEDS: Prochlorperazine 10 MG/2 ML VIAL IVP (17:55)
[2021-07-25 18:15] LABS: Lactate 3.7 mmol/L (0.6-1.4)
[2021-07-25 18:40] LABS: Troponin I 0.67 ng/mL (<0.06)
--- NOTE | 2021-07-25 19:10 | DI.VRAD_ITS ---
PROCEDURE INFORMATION: Exam: CT Head Without Contrast Exam date and time: 07/25/2021 5:46 PM Age: 66 years old Clinical indication: Pain; Headache TECHNIQUE: Imaging protocol: Computed tomography of the head without contrast. COMPARISON: No relevant prior studies available. FINDINGS: Brain: Contrast is present from earlier injection which slightly limits assessment for subtle hemorrhage. As shown there is no evidence for intracranial hemorrhage. Cisterns and sulci appear intact. There are scattered and coalescent areas of abnormal intensity in the deep periventricular white matter, presumed small vessel ischemic change. Cerebral ventricles: No ventriculomegaly. Paranasal sinuses: There is mild mucoperiosteal thickening in the left sphenoid sinus and ethmoid air cells with left frontoethmoid recess involvement. Mastoid air cells: Trace mucoperiosteal thickening right Mastoid air cells. Bones/joints: Unremarkable. No acute fracture. Soft tissues: Unremarkable. IMPRESSION: Early senescent changes. Slightly limited assessment for hemorrhage due to underlying contrast material. No definite acute intracranial abnormality. Mild, chronic appearing sinus disease. PROCEDURE INFORMATION: Exam: CT Cervical Spine Without Contrast Exam date and time: 07/25/2021 5:46 PM Age: 66 years old Clinical indication: Pain; Headache TECHNIQUE: Imaging protocol: Computed tomography images of the cervical spine without contrast. COMPARISON: No relevant prior studies available. FINDINGS: Bones/joints: No acute fracture. Normal alignment. Discs/Spinal canal/Neural foramina: No significant disc protrusion. No severe spinal canal stenosis. No significant neural foraminal narrowing. Dental: Odontogenic disease noted. Lungs: Lung apices are normal. Soft tissues: Unremarkable. IMPRESSION: No evidence for acute posttraumatic abnormality. Dictated and Authenticated by: Maria Esther Fonseca MD. Ordering:ZOE Castillo MD
--- NOTE | 2021-07-25 19:17 | NUR.NOTE ---
Nursing Note: Noted that urostomy bag was off of patient in bed, bedding soaked. Stoma open to air. Prior to this there was tubing sticking out of stoma in the urostomy bag. Upon finding bag off of patient, noted that the tubing that had been in stoma was no longer there nor in bed or bag. Applied a new urostomy bag from our stock as has gone to their house to get his supplies for nephrostomy tube, colostomy, and urostomy. Notified provider who assessed this as well.
--- NOTE | 2021-07-25 19:30 | DI.RAD_ITS ---
Exam(s) XR ABDOMEN FLAT LATERAL EXAM: 2D digital imaging was performed. CLINICAL HISTORY: question stent placement. COMPARISON: CR XR abdomen flat upright from 03/29/2019 CR,XR XR PORTABLE CHEST AP from 05/03/2021 CR,XR XR PORTABLE CHEST AP from 05/03/[address] THORAX ABD/PEL CTA from 05/03/[address] CHEST PE ABD PELVIS W from 07/25/[address] CHEST PE ABD PELVIS W from 07/25/2021 TECHNIQUE: Supine and uprightSupine and Lateral views of the abdomen was performed. FINDINGS: LUNG BASES: Clear. BOWEL GAS PATTERN: Nondistended. FREE AIR: None. CALCIFICATIONS: No radiopaque calcifications. OSSEOUS STRUCTURES: Normal for age. OTHER FINDINGS: The patient has a right nephroureteral tube. Paired with the CT scan from earlier in the day, the distal pigtail now appears to be intra-abdominal and may lie within the ileal conduit. On the examination from earlier in the day, the distal pigtail was located within the ostomy bag and the metallic marker on the tubing was near the right renal pelvis. It now appears to be external to the patient posteriorly. IMPRESSION: 1. There appears to have been retraction of the right nephroureteral stent since earlier in the day. The distal pigtail now appears to lie intra-abdominally and may be located within the ileal conduit in the right lower quadrant. 2. Results of this exam have been verbally communicated with provider on 07/26/2021. DATA REPOSITORY: RADIATION DOSE DELIVERED:
[2021-07-25 20:05] LABS: C Diff PCR Negative (Negative)
--- NOTE | 2021-07-25 20:27 | DI.VRAD_ITS ---
PROCEDURE INFORMATION: Exam: XR Abdomen Exam date and time: 07/25/2021 7:40 PM Age: 66 years old Clinical indication: Abdominal pain; Prior surgery; Patient HX: Question stent placement TECHNIQUE: Imaging protocol: XR of the abdomen. Views: 2 Views. Upright and supine views. COMPARISON: CT CHEST PE ABD PELVIS W 07/25/2021 3:50 PM FINDINGS: Tubes, catheters and devices: There is a right nephroureteral tube in place. Grossly positioning appears appropriate. Correlation is made with the patient's earlier CT exam. Gastrointestinal tract: Normal. No bowel dilation. Intraperitoneal space: Normal. No free air. Bones/joints: Unremarkable for age. IMPRESSION: Grossly appropriate right nephroureteral stent placement. Dictated and Authenticated by: Maria Esther Fonseca MD. Ordering:ZOE Castillo MD
--- NOTE | 2021-07-25 22:16 | NUR.NOTE ---
Nursing Note: Patient resting in bed at this time with eyes closed, no signs of distress noted. Respirations even and non-labored. Vital signs remain stable at this time. Oxygen currently 97%. remains at bedside.
--- NOTE | 2021-07-26 11:09 | NUR.NOTE ---
Addendum entered by Adele Beauchamp 07/26/21 11:16: Fax number to [facility] given to lab for further faxing. Original Note: Nursing Note: Preliminary urinary culture result faxed to [facility]. Adele Beauchamp
[2021-07-26 23:03] LABS: Campylobacter PCR Negative (Negative); Salmonella PCR Negative (Negative); Shiga Toxin PCR Negative (Negative); Shigella/Enteroinvasive Ecoli Negative (Negative)
== END 2021-07-25 23:57 ==
PROVIDERS: Physician Assistant; Emergency Provider Physician Assistant; PCP Internal Medicine
DX: I21.4 Non-ST elevation (NSTEMI) myocardial infarction (principal); A41.89 Other specified sepsis; N39.0 Urinary tract infection, site not specified; B96.89 Other specified bacterial agents as the cause of diseases classified elsewhere; E86.0 Dehydration; K52.9 Noninfective gastroenteritis and colitis, unspecified; T83.123A Displacement of other urinary stents, initial encounter
CPT/HCPCS: 36415; 71275; 74177; 80053; 82805; 83690; 84145; 87040; 87077; 87493; 87505; 87635; 93005; 96361; 96365; 96368; 96375; 99291; 70450; 72125; 74019; 81003; 81015; 83605; 83735; 84484; 85025; 87086; 87186; 93010; J0131; J0780; J2405; J3480; J3490

== ENCOUNTER 2021-11-19 01:41 | Outpatient (CLI) | payer MEDICARE, SELFPAY ==
--- NOTE | 2021-11-19 | DI.CT_ITS ---
Exam(s) CT CHEST/ABD/PEL W EXAM: CT CHEST/ABD/PEL W CLINICAL HISTORY: RECTAL CANCER C20, RESTAGING TECHNIQUE: CT examination of the chest, abdomen, and pelvis was performed utilizing intravenous inf usion of 100 cc of Omnipaque 350 with biphasic hepatic imaging. Oral contrast was also administered. COMPARISON: CT CT THORAX ABD/PEL CTA from 05/03/[address] CHEST PE ABD PELVIS W from 07/25/2021 FINDINGS: Lungs are predominantly clear with a 4 millimeter mean diameter left upper lobe pulmonary nodule. Th is was present on prior examination of April and August 01 and is unchanged. Note is made of d iffuse central lobular emphysema.. No pleural effusion. No pleural based mass. No mediastinal or hilar adenopathy. No axillary or supraclavicular adenopathy. Tracheobronchial libia e appears intact. No evidence of pulmonary embolic disease. Unremarkable appearance of thoracic aorta and major branch vessels. The liver is again noted to contain 2 very tiny stable low-attenuation foci, consistent with cysts. No change from prior . Spleen is unremarkable in appearance. Pancreas appears intact. Adrenals appear normal. Bilateral nephrostomy tubes again noted in position, no hydronephrosis. Prior cystectomy again noted period. Abdominal aorta and major visceral branches appear intact. Prior descending to distal colonic resection noted. Left colostomy with unremarkable appearance . No abdominal or pelvic adenopathy. No significant abdominal wall hernia. No focal bony lesion identified on scanning of the chest, abdomen, and pelvis. IMPRESSION: No evidence of metastatic disease in a patient who is status post colonic resection and cystectomy.. RADIATION DOSE DELIVERED: 1,134.16mGy.cm Total DLP 1,134.16mGy.cm Total DLP !Error CTDIvol RADIATION OPTIMIZATION: All CT scans at this facility use at least one of these dose optimization te chniques: automated exposure control; mA and/or kV adjustment per patient size (includes targeted exa ms where dose is matched to clinical indication); or iterative reconstruction.
[2021-11-19 08:36] LABS: Abs Immature Grans 0.02 10^3/uL (0.0-0.06); Absolute Basophil Count 0.04 10^3/uL (0.0-0.2); Absolute Eosinophil Count 0.55 10^3/uL (0.0-0.7); Absolute Lymphocyte Count 1.01 10^3/uL (1.2-3.4); Absolute Monocyte Count 0.59 10^3/uL (0.1-0.8); Absolute Neutrophil Count 4.86 10^3/uL (1.2-6.7); Basophils % 0.6; Eosinophils % 7.8; HCT 39.6 % (40.0-50.0); HGB 12.7 g/dL (13.5-17.5); Immature Grans % 0.3; Lymphocytes % 14.3; MCH 28.8 pg (27.0-33.0); MCHC 32.1 % (32.0-36.0); MCV 89.8 fL (80-95); MPV 10.1 fL (8.0-11.0); Monocytes % 8.3; Neutrophils % 68.7; Nucleated RBC 0 %; Platelet Count 216 10^3/uL (130-400); RBC 4.41 10^6/uL (4.36-5.78); RDW 13.5 % (11.8-14.1); RDW-SD 44.6 fL; WBC 7.07 10^3/uL (4.4-10.8)
[2021-11-19 08:53] LABS: ALT 20 U/L (16-63); AST 22 U/L (15-37); Albumin 3.5 g/dL (3.4-5.0); Alkaline Phosphatase 105 U/L (46-116); Anion Gap 8.1 mmol/L (3-11); BUN 14 mg/dL (7-18); Bilirubin, Total 0.3 mg/dL (0.2-1.0); CO2 26.9 mmol/L (21.0-32.0); CREATININE 1.2 mg/dL (0.70-1.30); Calcium 9.1 mg/dL (8.5-10.1); Chloride 104 mmol/L (98-107); Glucose 136 mg/dL (74-106); Potassium 4.4 mmol/L (3.5-5.1); Sodium 139 mmol/L (136-145); Total Protein 7.4 g/dL (6.4-8.2)
[2021-11-19] MEDS: Breeza Beverage 473 ML BTL 946 ML PO (09:55)
[2021-11-19] MEDS: Omnipaque 350 MG/ML 50 ML BTL IJ (09:56)
[2021-11-19] MEDS: Omnipaque 350 MG/ML 100 ML BTL IJ (09:57)
[2021-11-19 19:53] LABS: CEA 2.8 ng/mL (See Note)
== END 2021-11-19 02:01 ==
LOC: DI 01:41
PROVIDERS: Internal Medicine Hematology & Oncology; PCP Internal Medicine; Visit Provider Nurse Practitioner Family
DX: C20 Malignant neoplasm of rectum (principal)
CPT/HCPCS: 74177; 80053; 71260; 82378; 85025; J3490; Q9967

== ENCOUNTER 2021-12-04 20:58 | Outpatient (CLI) | payer MEDICARE, SELFPAY ==
[2021-12-04 10:19] LABS: Abs Immature Grans 0.01 10^3/uL (0.0-0.06); Absolute Basophil Count 0.05 10^3/uL (0.0-0.2); Absolute Eosinophil Count 0.29 10^3/uL (0.0-0.7); Absolute Lymphocyte Count 1.23 10^3/uL (1.2-3.4); Absolute Monocyte Count 0.53 10^3/uL (0.1-0.8); Absolute Neutrophil Count 4.49 10^3/uL (1.2-6.7); Basophils % 0.8; Eosinophils % 4.4; HCT 37.6 % (40.0-50.0); HGB 12.3 g/dL (13.5-17.5); Immature Grans % 0.2; Lymphocytes % 18.6; MCH 29.1 pg (27.0-33.0); MCHC 32.7 % (32.0-36.0); MCV 89.1 fL (80-95); MPV 9.8 fL (8.0-11.0); Nucleated RBC 0 %; Platelet Count 242 10^3/uL (130-400); RBC 4.22 10^6/uL (4.36-5.78); RDW 13.8 % (11.8-14.1); RDW-SD 44.7 fL
[2021-12-04 10:42] LABS: ALT 18 U/L (16-63); AST 19 U/L (15-37); Albumin 3.5 g/dL (3.4-5.0); Alkaline Phosphatase 92 U/L (46-116); Anion Gap 6.3 mmol/L (3-11); BUN 17 mg/dL (7-18); Bilirubin, Total 0.4 mg/dL (0.2-1.0); CO2 25.7 mmol/L (21.0-32.0); CREATININE 1.3 mg/dL (0.70-1.30); Calcium 8.7 mg/dL (8.5-10.1); Chloride 104 mmol/L (98-107); Estimated GFR 55.58 (mL/min/1.73m2); Glucose 126 mg/dL (74-106); Potassium 3.8 mmol/L (3.5-5.1); Sodium 136 mmol/L (136-145); Total Protein 7.2 g/dL (6.4-8.2)
[2021-12-04 21:08] LABS: CEA 2.6 ng/mL (See Note)
== END 2021-12-04 20:59 | disposition home or self-care (01) ==
LOC: LBO 21:07
PROVIDERS: PCP Internal Medicine; Visit Provider Internal Medicine Hematology & Oncology
DX: C20 Malignant neoplasm of rectum (principal)
CPT/HCPCS: 36415; 80053; 82378; 85025

== ENCOUNTER 2023-09-16 10:55 | Outpatient (REF) | payer MEDICARE, SELFPAY ==
[2023-09-16 15:06] LABS: HCT 43.9 % (40.0-50.0); HGB 14.3 g/dL (13.5-17.5); MCH 29.9 pg (27.0-33.0); MCHC 32.6 % (32.0-36.0); MCV 92 fL (80-95); MPV 9.9 fL (8.0-11.0); Platelet Count 283 10^3/uL (130-400); RBC 4.79 10^6/uL (4.36-5.78); RDW 12.8 % (11.8-14.1); RDW-SD 43.8 fL; WBC 8.18 10^3/uL (4.4-10.8)
[2023-09-16 15:10] LABS: ALT 26 U/L (16-63); AST 26 U/L (15-37); Albumin 3.8 g/dL (3.4-5.0); Alkaline Phosphatase 97 U/L (46-116); Anion Gap 7.2 mmol/L (3-11); BUN 14 mg/dL (7-18); Bilirubin, Total 0.3 mg/dL (0.2-1.0); CO2 26.8 mmol/L (21.0-32.0); CREATININE 1.2 mg/dL (0.70-1.30); Calcium 9.6 mg/dL (8.5-10.1); Calculated LDL 160 mg/dL (<100); Chloride 103 mmol/L (98-107); Cholesterol 287 mg/dL (<200); Glucose 98 mg/dL (74-106); HDL Cholesterol 104 mg/dL (40-60); Potassium 4.3 mmol/L (3.5-5.1); Sodium 137 mmol/L (136-145); Total Protein 7.7 g/dL (6.4-8.2); Triglyceride 116 mg/dL (<150)
== END 2023-09-16 10:56 | disposition home or self-care (01) ==
LOC: NCHCN 10:55
PROVIDERS: PCP Internal Medicine; Visit Provider Internal Medicine
DX: E78.5 Hyperlipidemia, unspecified (principal); I25.10 Atherosclerotic heart disease of native coronary artery without angina pectoris
CPT/HCPCS: 80053; 80061; 85027

== ENCOUNTER 2024-12-07 10:46 | Emergency (ER) | payer MEDICARE, SELFPAY ==
[2024-12-07 10:50] VITALS: BP 151/72; PULSE 56; RESP 18; TEMP 36.8; O2SAT 98
--- NOTE | 2024-12-07 11:15 | DI.RAD_ITS ---
Exam(s) XR FOOT RT COMPLETE EXAM: XR FOOT RT COMPLETE CLINICAL HISTORY: cellulitis, wound 4-5 webspace, fb?. TECHNIQUE: 2D digital imaging was performed. COMPARISON: No exams were available for comparison FINDINGS: 3 views There is no evidence of fracture or diastasis of the Lisfranc joint. No evidence of radiopaque forei gn body. There appears to be some abnormal hypodensity in the head of the 5th metatarsal seen on the AP view o nly. There is no cortical loss at this level. Incidentally noted are mild degenerative changes in the great toe metatarsophalangeal joint. Also no yonathan is some vascular calcification in the dorsalis pedis artery on the dorsal foot. IMPRESSION: No radiopaque foreign body, as per request. Some lucency is seen in the head of the 5th metatarsal. No obvious skin ulcer. This finding can yumiko etimes be normal variant but if there is clinical suspicion for osteomyelitis then follow-up MRI woul d be recommended. DATA REPOSITORY: RADIATION DOSE DELIVERED:
[2024-12-07 12:10] VITALS: BP 126/68; PULSE 53; RESP 22; TEMP 36.5; O2SAT 100
[2024-12-07] MEDS: Clindamycin 150 MG CAP 450 MG PO (12:16)
--- NOTE | 2024-12-07 15:01 | W.ED.GENAD ---
Discharge Plan Disposition Patient Disposition: Home Condition: Stable Discharge Details Clinical Impression: Abscess of foot Primary Care Provider: Nyla Munoz ED Provider: Anna Gabriel Home Meds and New Rx's Prescriptions: New clindamycin HCl 150 mg capsule 450 mg PO TID 10 Days Qty: 90 0RF Continued multivitamin Tablet 1 tab PO DAILY ferrous sulfate 325 mg (65 mg iron) tablet 325 mg PO DAILY bisacodyl [Dulcolax (bisacodyl)] 5 mg tablet,delayed release (DR/EC) 5 mg PO ONCE PRN ezetimibe 10 mg tablet 10 mg PO DAILY Combivent Respimat 20-100 mcg/actuation mist 1 puff inhalation Q6H methadone 10 MG tablet 10 mg PO TID oxycodone 10 mg Tablet 10 mg PO 6X/DAY metoprolol succinate 25 mg tablet extended release 24 hr 25 mg PO DAILY atorvastatin 80 mg tablet 80 mg PO DAILY nitroglycerin [Nitrostat] 0.4 MG tablet, sublingual 0.4 mg Sublingual DAILY aspirin 81 mg Tablet,Chewable 81 mg PO DAILY Qty: 0 0RF clopidogrel [Plavix] 75 mg tablet 75 mg PO DAILY Qty: 30 0RF Discharge Instructions Instructions: [facility], Adult ED Additional Instructions: Soak your foot several times daily in warm water and apply gauze and rewrap Take the clindamycin 3 tabs 3 times daily as prescribed recheck in 72 hours with pcp return with fever, spreading redness, or should any new concers arise Referrals: Nyla Munoz [Primary Care Provider] - 3 days HPI General Date/Time Provider Initiated Documentation: 12/07/24 11:13. HPI Narrative: 69-year-old male with a right foot wound. Started 3 days ago as a blister between the 4th and 5th digits, now red, swollen, and painful. No trauma, foreign body, diabetes, prior foot surgeries, fever, or chills. Related Data Home Medications ?Medication ?Instructions ?Recorded ?Confirmed nitroglycerin 0.4 mg sublingual 0.4 mg sublingual DAILY 10/11/17 12/07/24 tablet (Nitrostat) methadone 10 mg tablet 10 mg PO TID 03/21/18 12/07/24 oxycodone 10 mg tablet 10 mg PO 6X/DAY 04/30/19 12/07/24 aspirin 81 mg chewable tablet 81 mg PO DAILY #0 tabs 05/05/21 12/07/24 clopidogrel 75 mg tablet (Plavix) 75 mg PO DAILY #30 tabs 05/05/21 12/07/24 atorvastatin 80 mg tablet 80 mg PO DAILY 08/03/21 12/07/24 metoprolol succinate 25 mg 25 mg PO DAILY 08/03/21 12/07/24 tablet,extended release 24 hr bisacodyl 5 mg tablet,delayed 5 mg PO ONCE PRN 12/18/21 12/07/24 release (Dulcolax (bisacodyl)) ezetimibe 10 mg tablet 10 mg PO DAILY 12/18/21 12/07/24 ferrous sulfate 325 mg (65 mg 325 mg PO DAILY 12/18/21 12/07/24 iron) tablet ipratropium 20 mcg-albuterol 100 1 puff inhalation Q6H 12/18/21 12/07/24 mcg/actuation mist for inhalation (Combivent Respimat) multivitamin 1 tab PO DAILY 12/18/21 12/07/24 clindamycin HCl 150 mg capsule 450 mg (3 x 150 mg) PO TID 10 days 12/07/24 #90 caps Previous Rx's ?Medication ?Instructions ?Recorded aspirin 81 mg chewable tablet 81 mg PO DAILY #0 tabs 05/05/21 clopidogrel 75 mg tablet (Plavix) 75 mg PO DAILY #30 tabs 05/05/21 clindamycin HCl 150 mg capsule 450 mg (3 x 150 mg) PO TID 10 days 12/07/24 #90 caps Allergies Allergy/AdvReac Type Severity Reaction Status Date / Time penicillin G Allergy Skin Rash Verified 12/07/24 10:54 General Stated Complaint: Cellulitis STACIA: 3 Exam Narrative Exam Narrative: General Appearance: Alert, oriented, no acute distress. Vital signs: Within normal limits. HEENT: Within normal limits. Respiratory: Within normal limits. Skin: Pustule ~0.5 inch between 4th and 5th digits of the foot. Neurological: Normal. Course Vital Signs Vital signs: Vital Signs Temperature 36.8 C 12/07/24 10:50 Pulse 56 L 12/07/24 10:50 Respiratory Rate 18 12/07/24 10:50 Blood Pressure 151/72 H 12/07/24 10:50 Pulse Oximetry 98 12/07/24 10:50 Temperature 36.5 C 12/07/24 12:10 Temperature Source Tympanic 12/07/24 12:10 Pulse 53 L 12/07/24 12:10 Respiratory Rate 22 12/07/24 12:10 Blood Pressure 126/68 12/07/24 12:10 Blood Pressure Position Sitting 12/07/24 10:50 Pulse Oximetry 100 12/07/24 12:10 Oxygen Delivery Method Room Air 12/07/24 12:10 Oxygen Flow Rate 0 12/07/24 12:10 Pain Level 8 12/07/24 10:50 Lab/Test Results Lab/Test Results: 12/07/24 11:29 Foot - Right Wound Culture - Pending 12/07/24 11:29 Foot - Right Gram Stain - Final Medical Decision Making Initial Assessment: 69-year-old male with wound on right foot, started approximately 3 days ago. Denies known trauma, fever, chills, illicit substance use, history of diabetes, foreign body, or prior surgeries in this foot. Painful area with redness and swelling. Alert and oriented, not in acute distress. ED Course: - procedure: Cleaned wound and aspirated purulent drainage, cultured. - Irrigated and placed dressing. - Initiated clindamycin pending wound culture. - Ordered x-ray to check for foreign body. - X-ray read by me, no acute abnormality. - Encouraged to elevate foot and soak in warm water. Final Assessment: Wound on right foot with low suspicion for osteomyelitis. No signs of systemic illness. Wound cleaned, aspirated, cultured, irrigated, and dressed. Clindamycin started pending culture results. X-ray showed no acute abnormality. Clinical Impression: - Right foot wound - Low suspicion for osteomyelitis - No systemic illness signs Disposition: - Follow-Up: Recheck in 48 hours MDM Components Evaluation: - Number of Differential Diagnoses or Management Options: Low suspicion for osteomyelitis - Amount and Complexity of Data Reviewed: Wound culture, x-ray - Risk of Complication and Morbidity or Mortality: Low suspicion for osteomyelitis, no signs of systemic illness Quality:SDOH Health Related Social Needs: No Data to Display PFSH All Active Problems (Updated 12/07/24 @ 11:57 by KIRIT Matson) Abscess of foot (Acute) Screening for colon cancer (Acute) Paroxysmal A-fib (Acute) Acute non-ST elevation myocardial infarction (NSTEMI) (Acute) Malnutrition (Acute) Vomiting (Acute) Colorectal polyps (Acute ~07/16/19) S/P colonoscopy (Acute ~07/16/19) History of colon cancer (Acute) stage 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 s/p preOp chemo & XRT APR and radical cystecyomy/prostectomy postOp adjuvent chemo Stomal prolapse (Acute) Port-A-Cath in place (Acute) Smoker (Acute) COPD (chronic obstructive pulmonary disease) (Chronic) Hx of non-ST elevation myocardial infarction (NSTEMI) (Acute) pt had cath 2016. x2 vessel Dx. treated w/ meds only last echo 2017: EF 48% ASCVD (arteriosclerotic cardiovascular disease) (Acute) CAD (coronary artery disease) (Chronic) Pulmonary embolism (Chronic) 04/06/19 incidental finding. placed on lovenox. plan for PCP to manage move to coumadin. Constipation (Acute) Medical History (Updated 12/07/24 @ 11:57 by KIRIT Matson) Post laminectomy syndrome Urolithiasis Sepsis due to urinary tract infection in pt at [facility] 07/26/21-07/30/21 [facility] Acute dehydration Colitis Sepsis Acute UTI Displacement of other urinary stents, initial encounter Palliative care patient Aspiration pneumonia STEPHANIE (acute kidney injury) Leukocytosis Respiratory alkalosis Multifocal pneumonia NSTEMI (non-ST elevated myocardial infarction) History of prostate cancer History of chemotherapy (12/12/17) Chronic low back pain Rectal cancer (02/10/17) Surgical History Spinal Surgery laminectomy L4-L5 Sigmoidoscopy (03/11/17) Prostatectomy / Cystectomy (09/27/17) EGD - IV Sedation (03/11/17) Colostomy (05/18/17) s/p APR. permanent stoma. Family History Other Cancer Emphysema lung Heart disease Social History Smoking/Tobacco Use Status: Current every day Tobacco Type: cigarettes Smoking risk assessment performed?: Yes Alcohol Intake: former Drug use: Daily Substance use type: marijuana Current gender identity: male Do you feel safe at home: Yes Do you feel safe in your relationship?: Yes
== END 2024-12-07 12:21 | disposition home or self-care (01) ==
LOC: ER 12:17
PROVIDERS: Emergency Provider Physician Assistant; PCP Internal Medicine
DX: L02.611 Cutaneous abscess of right foot (principal); I25.2 Old myocardial infarction; Z79.82 Long term (current) use of aspirin; Z79.02 Long term (current) use of antithrombotics/antiplatelets; Z85.46 Personal history of malignant neoplasm of prostate; Z85.048 Personal history of other malignant neoplasm of rectum, rectosigmoid junction, and anus; Z92.21 Personal history of antineoplastic chemotherapy; F17.210 Nicotine dependence, cigarettes, uncomplicated
CPT/HCPCS: 99283; 73630; 87070; 87205

== ENCOUNTER 2024-12-13 08:57 | Outpatient (REF) | payer MEDICARE, SELFPAY ==
[2024-12-13 14:51] LABS: HGB 14.2 g/dL (13.5-17.5); MCH 30.7 pg (27.0-33.0); MCV 93 fL (80-95); MPV 10.9 fL (8.0-11.0); Platelet Count 213 10^3/uL (130-400); RBC 4.62 10^6/uL (4.36-5.78); RDW-SD 44.7 fL; WBC 5.18 10^3/uL (4.4-10.8)
[2024-12-13 16:07] LABS: ALT 20 U/L (16-63); AST 23 U/L (15-37); Alkaline Phosphatase 112 U/L (46-116); Anion Gap 11.6 mmol/L (3-11); BUN 11 mg/dL (7-18); Bilirubin, Total 0.3 mg/dL (0.2-1.0); CO2 26.4 mmol/L (21.0-32.0); CREATININE 1.3 mg/dL (0.70-1.30); Calcium 9.7 mg/dL (8.5-10.1); Calculated LDL 127 mg/dL (<100); Chloride 103 mmol/L (98-107); Cholesterol 239 mg/dL (<200); Estimated GFR 60.21 (mL/min/1.73m2); Glucose 108 mg/dL (74-106); HDL Cholesterol 84 mg/dL (>or=40); Potassium 4.3 mmol/L (3.5-5.1); Sodium 141 mmol/L (136-145); Total Protein 7.8 g/dL (6.4-8.2); Triglyceride 143 mg/dL (<150)
== END 2024-12-13 08:58 | disposition home or self-care (01) ==
LOC: NCHCN 08:57
PROVIDERS: PCP Internal Medicine; Visit Provider Internal Medicine
DX: I25.10 Atherosclerotic heart disease of native coronary artery without angina pectoris (principal)
CPT/HCPCS: 80053; 80061; 85027

== ENCOUNTER 2025-01-11 02:13 | Outpatient (CLI) | payer MEDICARE, SELFPAY ==
--- NOTE | 2025-01-11 13:32 | DI.RAD_ITS ---
Exam(s) XR HIP LT COMPLETE AP PELVIS EXAM: XR HIP LT COMPLETE AP PELVIS CLINICAL HISTORY: LT HIP PAIN, M25.552,S/P TRAUMATIC FALL,? FX OR MALALIGNMENT. TECHNIQUE: 2D digital imaging was performed of the left hip. Two views were obtained. AP pelvis an d lateral left hip views were obtained. COMPARISON: CR LEFT HIP COMPLETE from 10/17/2010 FINDINGS: BONES: No definite acute fracture or dislocation is seen. There is a lucency projected over the supe rior pubic ramus on the left on the AP view but not seen on the lateral view. It appears to extend b eyond the cortex medially and is likely an overlying artifact. No evidence of a periosteal reaction to suggest healing fracture seen at this time. No bony destructive lesion is seen. JOINTS: No dislocation present. There is mild narrowing of the superior joint space of the left hip. Degenerative changes are seen in the lower lumbar spine. The sacroiliac joints and symphysis pubis are intact. SOFT TISSUE: Normal. IMPRESSION: 1. No definite acute fracture or dislocation. 2. If symptoms persist, an MRI may be considered to assess for an occult fracture. DATA REPOSITORY: RADIATION DOSE DELIVERED:
== END 2025-01-11 02:33 ==
LOC: DI 02:13
PROVIDERS: PCP Internal Medicine; Visit Provider Physician Assistant
DX: M25.552 Pain in left hip (principal)
CPT/HCPCS: 73502